=== PATIENT | male | born 1940 | race Caucasian/White ===

== ENCOUNTER 2017-10-16 09:58 | Day surgery (SDC) | payer OTHER ==
[2017-10-16] MEDS ORDERED: LIDOCAINE 1% 2 ML INJ ID PRN (10:13)
[2017-10-16] MEDS ORDERED: ceFAZolin 2 GM/DEXTROSE 100 ML IV ONE (10:13)
[2017-10-16] MEDS ORDERED: LR 1,000 ML IV ONE (10:13)
[2017-10-16] MEDS ORDERED: CEFAZOLIN 2 GM/DEXTROSE/100 ML BAG IV ONE (10:52)
[2017-10-16] MEDS ORDERED: BUPIVACAINE 0.25% 30 ML SDV ONE (11:11)
--- NOTE | 2017-10-16 12:08 | PDHPUP ---
History & Physical Update H&P update statement: This history and physical update is based on an assessment of the patient which was completed after admission or registration (within 24 hours), but prior to the surgery/procedure. H&P update: H&P reviewed & patient examined, no change in patient's condition since H&P completed
--- NOTE | 2017-10-16 12:15 | PDANEPAE ---
ANE History of Present Illness 76 year old male for vascular access port placement. ANE Past Medical History - Cardiovascular History Hx Hypertension: No Hx Arrhythmias: No Hx Chest Pain: No Hx Coronary Artery / Peripheral Vascular Disease: No Hx CHF / Valvular Disease: No Hx Palpitations: No Cardiovascular History Comment: hx of htn but none currently - Pulmonary History Hx COPD: No Hx Asthma/Reactive Airway Disease: No Hx Recent Upper Respiratory Infection: No Hx Oxygen in Use at Home: Yes O2 in Use at Home (L/minute): 4l at noc with cpap Hx Sleep Apnea: Yes Sleep Apnea Screening Result - Last Documented: Positive Pulmonary History Comment: esequiel positive uses cpap - Neurologic History Hx Cerebrovascular Accident: No Hx Seizures: No Hx Dementia: No - Endocrine History Hx Diabetes: No Obesity: mild - Renal History Hx Renal Disorders: Yes Renal History Comment: bph - Liver History Hx Hepatic Disorders: No - Neurological & Psychiatric Hx Hx Neurological and Psychiatric Disorders: No - Cancer History Hx Cancer: Yes Cancer History Comment: esophageal cancer 2010- chemo and radiation. current mets to liver and spot in abd on PET scan - Congenital Disorder History Hx Congenital Disorders: No - GI History Hx Gastrointestinal Disorders: Yes Gastrointestinal History Comment: esophageal cancer. barretts esophagus. reflux. hx of egd's and colonoscopy - Other Health History Other Health History: thrombocytopenia - Chronic Pain History Chronic Pain: Yes (upper quadrant pain near liver) - Surgical History Prior Surgeries: egd's and colonoscopy. port removed fall 2016. port placed . retina retachment- left ANE Review of Systems Review of systems is: negative Review of Systems: - Exercise capacity Exercise capacity: >=4 METS METS (RN): 4 METS ANE Patient History - Allergies Allergies/Adverse Reactions: No Known Allergies Allergy (Verified 10/16/17 10:24) - Home Medications Home medications: home medication list seen and reviewed Home Medications: Flomax 01/10/10 [Last Taken 10/15/17 18:30] Lasix 10/15/17 [Last Taken 10/15/17 08:00] Magnesium 10/15/17 [Last Taken 10/15/17 08:00] Omeprazole 10/15/17 [Last Taken 10/15/17 08:00] Potassium Chloride 10/15/17 [Last Taken 10/15/17 08:00] Preservision Softgel 10/15/17 [Last Taken 07/17/18 18:30] Advil 200 mg PO PRN 10/16/17 [Last Taken 10/15/17 05:30] - NPO status NPO Status: no food or drink >8 hours NPO Since - Liquids (Date): 10/16/17 NPO Since - Liquids (Time): 07:00 NPO Since - Solids (Date): 10/15/17 NPO Since - Solids (Time): 18:30 - Anes Hx Anes Hx: no prior problems - Smoking Hx Smoking Status: Former smoker - Family Anes Hx Family Anes Hx: neg - N/A Family Hx Anesthesia Complications: none ANE Labs/Vital Signs - Vital Signs Vital Signs: reviewed preoperatively; see RN documention for details Blood Pressure: 140/88 Heart Rate: 59 Respiratory Rate: 16 O2 Sat (%): 90 Height: 180.34 cm Weight: 109.316 kg ANE Physical Exam - Airway Neck exam: FROM Mallampati Score: Class 3 Mouth exam: poor dentition (missing teeth, several broken teeth) - Pulmonary Pulmonary: no respiratory distress - Cardiovascular Cardiovascular: regular rate and rhythym - ASA Status ASA Status: III ANE Anesthesia Plan Anesthesia Plan: GA w LMA Total IV Anesthesia: No
[2017-10-16] MEDS ORDERED: PROPOFOL 200 MG/20 ML VIAL ONE ×2 (12:20→12:35)
--- NOTE | 2017-10-16 12:24 | PDHPUP ---
History & Physical Update H&P update statement: This history and physical update is based on an assessment of the patient which was completed after admission or registration (within 24 hours), but prior to the surgery/procedure. NO CHANGE IN EXAM OR HX/ CHEST CLEAR/ COR RR H&P update: H&P reviewed & patient examined, no change in patient's condition since H&P completed
[2017-10-16] MEDS ORDERED: IOPAMIDOL (ISOVUE-M 300) 15 ML VIAL ONE (13:07)
[2017-10-16] MEDS ORDERED: IOPAMIDOL (ISOVUE-M 200) 20 ML VIAL ONE (13:07)
[2017-10-16] MEDS ORDERED: ONDANSETRON 4 MG/2 ML VIAL IVP PRN (13:09)
[2017-10-16] MEDS ORDERED: fentaNYL 100 MCG/2 ML INJ IVP PRN (13:09)
[2017-10-16] MEDS ORDERED: LR 500 ML IV PRN (13:09)
[2017-10-16] MEDS ORDERED: NALOXONE HCL 0.4 MG/ML INJ IVP PRN (13:09)
[2017-10-16] MEDS ORDERED: IOTHALAMATE MEG (CONRAY) 50 ML VIAL IV ONE (13:12)
[2017-10-16] MEDS ORDERED: BACITRACIN ZINC 14.2 GM OINTTUBE TP ONE (13:55)
--- NOTE | 2017-10-16 15:59 | POSTANESTH ---
Post Anesthetic Evaluation Cardiovascular Status: Normal, Stable, Similar to Pre-Op Cond Respiratory Status: Similar to Pre-op Cond. (O2 sat low at baseline. Patient wears 4L O2 as needed at home and then also with his CPAP when sleeping.) Level of Consciousness/Mental Status: Can Participate in Eval, Alert and Oriented Pain Control: Adequate, Prn Tx Ordered Nausea/Vomiting Control: Adequate, Prn Tx Ordered Complications Possibly Related to Anesthesia: None Noted
[2017-10-16 16:29] VITALS: BP 126/77
--- NOTE | 2017-10-20 23:04 | GOP ---
[f rep st] OPERATIVE REPORT DATE OF OPERATION: 10/16/2017 SURGEON: Marcus Lopez MD PREOPERATIVE DIAGNOSIS: Metastatic esophageal cancer. POSTOPERATIVE DIAGNOSIS: Metastatic esophageal cancer. PROCEDURE PERFORMED: Bilateral subclavian port placements with fluoroscopic guidance. FINDINGS: Patient was found to have difficulty with positioning of the left subclavian port. Could not get it to maintain position in the right atrium. ESTIMATED BLOOD LOSS: Blood loss was negligible. DESCRIPTION OF PROCEDURE: The patient was taken to the operating room where he received a satisfacto ry general endotracheal anesthesia. He was placed in supine position, prepped and draped in usual st erile fashion. A single stick was made in the left subclavian vein. A guidewire was passed with clayton e difficulty into the right atrium. Subcu pocket was made and port tubing was passed from that pocke t to the subclavian insertion site. It was trimmed to the appropriate length using fluoroscopic guid ance. It was then introduced through the introducer sheath and dilator system into the superior vena cava. However, the catheter would not pass by some obvious webs in the superior vena cava from his previous old port and kept curling back on itself and could not position down into the atrium. Guide wire was passed through the port tubing. Still we could not manage to get the tubing to go down in t he proper position. After over an hour of struggling with this, it was elected to abandon the left si de and proceed with a port on the right side. A single stick was made in the right subclavian vein. Again, a guidewire was introduced and this time passed readily into the right atrium. The subcu poc ket was made on the right side of the chest. Port tubing was passed from that pocket to the subclavi an insertion site. It was trimmed to the appropriate length using fluoroscopic guidance and introduc ed through the introducer sheath and dilator system into the right atrium. Good backflow was achieve d. The catheter was flushed with heparin saline. It was secured to the port to the fascia with 3-0 Vicryl sutures. Subcu was closed with 3-0 Vicryl, and the skin with a 4-0 Prolene subcuticular sutur e. Entrance site was closed with Prolene mattress suture. The wound was infiltrated with Marcaine. Attention was turned back to the left side where that pocket was closed with 3-0 Vicryl for the subcu and a 4-0 Monocryl subcuticular stitch for the skin. The entrance site was also closed with 4-0 Mon ocryl subcuticular sutures. Wounds were dressed with Steri-Strips and Mastisol, and he was taken to the recovery room in satisfactory condition. There were no complications. /[id number]/MODL
== END 2017-10-16 16:31 | disposition home or self-care (01) ==
LOC: FSGY 09:58
PROVIDERS: ATTEND Surgery
PROC: B5161ZA Fluoroscopy of Right Subclavian Vein using Low Osmolar Contrast, Guidance (ICD-10-PCS; 2017-10-16)
PROC: 0JH60XZ Insertion of Tunneled Vascular Access Device into Chest Subcutaneous Tissue and Fascia, Open Approach (ICD-10-PCS; principal; 2017-10-16 11:45)
PROC: 05H533Z Insertion of Infusion Device into Right Subclavian Vein, Percutaneous Approach (ICD-10-PCS; principal; 2017-10-16 11:45)
DX: C15.5 Malignant neoplasm of lower third of esophagus (principal); C79.9 Secondary malignant neoplasm of unspecified site; N40.0 Benign prostatic hyperplasia without lower urinary tract symptoms; E78.5 Hyperlipidemia, unspecified; I10 Essential (primary) hypertension; G47.33 Obstructive sleep apnea (adult) (pediatric); D75.1 Secondary polycythemia; D69.6 Thrombocytopenia, unspecified; Z92.21 Personal history of antineoplastic chemotherapy; Z87.891 Personal history of nicotine dependence
CPT/HCPCS: C1788; J0690; J1642; J2704; Q9961; Q9966; Q9967

== ENCOUNTER 2017-12-31 08:22 | Inpatient (IN) | payer OTHER ==
[2017-12-31] MEDS ORDERED: NS 1,000 ML IV ONE (08:27)
--- NOTE | 2017-12-31 08:44 | EDPHY ---
H & P Time Seen by Provider: 12/31/17 08:23 HPI/ROS: CHIEF COMPLAINT: Syncope HISTORY OF PRESENT ILLNESS: Patient is a 77-year-old man with a history of esophageal cancer currently receiving chemotherapy. His last round was 1 week ago. He states that it made him very fatigued and weak. He has had two syncope episodes since that time. 1 on Saturday and 1 today. Today it happened while he was walking across the yard. He states that he felt lightheaded and had to stop and hold onto a tree. He then woke up lying on the ground. His saw him collapse. He did not hit his head. He denies chest pain or shortness of breath. He feels dry dehydrated. He has been trying to drink Gatorade. No vomiting. No diarrhea. No fever. called EMS who brought him to the ER. He is currently asymptomatic. Vital signs and EKG were unremarkable for EMS. He does State that he had mild left rib pain that is now resolved. Severity: Moderate Modifying factors: None REVIEW OF SYSTEMS: Constitutional: denies: chills, fever, recent illness, recent injury EENTM: denies: blurred vision, double vision, nose congestion Respiratory: denies: cough, shortness of breath Cardiac: See HPI Gastrointestinal/Abdominal: denies: abdominal pain, diarrhea, nausea, vomiting, blood streaked stools Genitourinary: denies: dysuria, frequency, hematuria, pain Musculoskeletal: denies: joint pain, muscle pain Skin: denies: lesions, rash, jaundice, bruising Neurological: denies: headache, numbness, paresthesia, tingling, dizziness, weakness Hematologic/Lymphatic: denies: blood clots, easy bleeding, easy bruising Immunologic/allergic: denies: HIV/AIDS, transplant 10 systems reviewed and negative except as noted EXAM: GENERAL: Well-appearing, well-nourished and in no acute distress. HEAD: Atraumatic, normocephalic. EYES: Pupils equal round and reactive to light, extraocular movements intact, sclera anicteric, conjunctiva are normal. ENT: TMs normal, nares patent, oropharynx clear without exudates. Moist mucous membranes. NECK: Normal range of motion, supple without lymphadenopathy or JVD. LUNGS: Breath sounds clear to auscultation bilaterally and equal. No wheezes rales or rhonchi. HEART: Regular rate and rhythm without murmurs, rubs or gallops. ABDOMEN: Soft, nontender, normoactive bowel sounds. No guarding, no rebound. No masses appreciated. BACK: No CVA tenderness, no spinal tenderness, step-offs or deformities EXTREMITIES: Normal range of motion, no pitting or edema. No clubbing or cyanosis. NEUROLOGICAL: Cranial nerves II through XII grossly intact. Normal speech, normal gait. 5/5 strength, normal movement in all extremities, normal sensation , normal reflexes PSYCH: Normal mood, normal affect. SKIN: Warm, dry, normal turgor, no visible rashes or lesions. Source: Patient, EMS Exam Limitations: No limitations - Medical/Surgical History Hx Asthma: No Hx Chronic Respiratory Disease: No Hx Diabetes: No Hx Cardiac Disease: No Hx Renal Disease: No Hx Cirrhosis: No Hx Alcoholism: No Hx HIV/AIDS: No - Family History Significant Family History: No pertinent family hx - Social History Smoking Status: Former smoker Alcohol Use: Sober Drug Use: None Constitutional: Initial Vital Signs Temperature (C) 37.0 C 12/31/17 09:05 Heart Rate 81 12/31/17 09:05 Respiratory Rate 18 12/31/17 09:05 Blood Pressure 150/89 H 12/31/17 09:05 O2 Sat (%) 94 12/31/17 09:05 O2 Delivery Mode Nasal Cannula O2 (L/minute) 6 Allergies/Adverse Reactions: No Known Allergies Allergy (Verified 12/31/17 09:07) Home Medications: Medication Instructions Recorded Esomeprazole Magnesium [Nexium 20 mg PO DAILY 12/31/17 24Hr] Ibuprofen [Advil] 200 - 400 mg PO Q6H PRN 12/31/17 Tamsulosin HCl [Flomax 0.4 MG (*)] 0.8 mg PO DAILY 12/31/17 Vit C/Dl-E AC/Lut/Copper/Znox 1 each PO BID 12/31/17 [Preservision Softgel] Medical Decision Making - Diagnostics EKG Interpretation: An EKG obtained and was read and documented in trace view. Please see trace view for full reading and report. Sinus rhythm, no acute ischemic changes Imaging Results: Imaging Impressions Chest/Thorax CTA 12/31/17 10:49 Impression: 1. Moderate volume of acute thrombopulmonary embolic disease. 2. New minimal left basilar atelectasis and trace left pleural effusion. 3. Benign right upper lobe linear scarring and middle lobe pulmonary nodules are unchanged since 2010. 4. Moderate hiatal hernia, unchanged. Findings discussed with Emergency Department physician, Tushar Robles on 2017, 11:56. Imaging: Discussed imaging studies w/ call center analyst Radiologist ED Course/Re-evaluation: Patient desaturated off of oxygen. He states that he has been wearing his oxygen more often recently since he began chemotherapy and that they told him to wear whenever he felt like he needed. He does have some mild left-sided rib pain earlier today but not now. I will CT to rule out P E. He may need to be on oxygen at home. He denies feeling short of breath. The patient has several PEs. I discussed with the patient and family. states that he has had a mild left-sided rib pain off and on for the last couple of days. Will admit to start on heparin drip. Have discussed with medical service. They will admit. Differential Diagnosis: Partial list of the Differential diagnosis considered include but were not limited to; anemia, dehydration, PE and although unlikely based on the history and physical exam, I also considered acute coronary disease, pneumonia. Critical Care Time: Critical care time spent by me, Dr. Robles exclusive with this patient was 35 minutes, exclusive of the PA time exclusive of procedures. The organ system that was at risk was pulmonary and I gave medications, consultation and admission to prevent worsening of the patient's condition - Data Points Laboratory Results: Laboratory Results 12/31/17 08:25 12/31/17 08:25 12/31/17 12/31/17 12/31/17 09:30 08:30 08:25 WBC RBC Hgb Hct MCV MCH MCHC RDW Plt Count MPV Neut % (Auto) Lymph % (Auto) [place] % (Auto) Eos % (Auto) Baso % (Auto) Nucleat RBC Rel Count Absolute Neuts (auto) Absolute Lymphs (auto) Absolute Monos (auto) Absolute Eos (auto) Absolute Basos (auto) Absolute Nucleated RBC Immature Gran % Immature Gran # Platelet Estimate Sodium Potassium Chloride Carbon Dioxide Anion Gap BUN Creatinine Estimated GFR Glucose Calcium Total Bilirubin Conjugated Bilirubin Unconjugated Bilirubin AST ALT Alkaline Phosphatase POC Troponin I 0.01 ng/mL ng/mL (0.00-0.08) NT-Pro-B Natriuret Pep 263 pg/mL pg/mL (0-450) Total Protein Albumin Stool Occult Bld Scrn NEGATIVE (NEGATIVE) 12/31/17 12/31/17 08:25 08:25 WBC 3.32 10^3/uL L 10^3/uL (3.80-9.50) RBC 3.72 10^6/uL L 10^6/uL (4.40-6.38) Hgb 12.8 g/dL L g/dL (13.7-17.5) Hct 36.9 % L % (40.0-51.0) MCV 99.2 fL fL (81.5-99.8) MCH 34.4 pg H pg (27.9-34.1) MCHC 34.7 g/dL g/dL (32.4-36.7) RDW 18.2 % H % (11.5-15.2) Plt Count 77 10^3/uL L 10^3/uL (150-400) MPV 11.1 fL fL (8.7-11.7) Neut % (Auto) 53.6 % % (39.3-74.2) Lymph % (Auto) 22.0 % % (15.0-45.0) [place] % (Auto) 15.1 % H % (4.5-13.0) Eos % (Auto) 8.1 % H % (0.6-7.6) Baso % (Auto) 0.3 % % (0.3-1.7) Nucleat RBC Rel Count 0.0 % % (0.0-0.2) Absolute Neuts (auto) 1.78 10^3/uL 10^3/uL (1.70-6.50) Absolute Lymphs (auto) 0.73 10^3/uL L 10^3/uL (1.00-3.00) Absolute Monos (auto) 0.50 10^3/uL 10^3/uL (0.30-0.80) Absolute Eos (auto) 0.27 10^3/uL 10^3/uL (0.03-0.40) Absolute Basos (auto) 0.01 10^3/uL L 10^3/uL (0.02-0.10) Absolute Nucleated RBC 0.00 10^3/uL 10^3/uL (0-0.01) Immature Gran % 0.9 % % (0.0-1.1) Immature Gran # 0.03 10^3/uL 10^3/uL (0.00-0.10) Platelet Estimate Not Reported Sodium 139 mEq/L mEq/L (135-145) Potassium 4.2 mEq/L mEq/L (3.3-5.0) Chloride 100 mEq/L mEq/L (97-110) Carbon Dioxide 29 mEq/l mEq/l (22-31) Anion Gap 10 mEq/L mEq/L (8-16) BUN 18 mg/dL mg/dL (7-23) Creatinine 1.0 mg/dL mg/dL (0.7-1.3) Estimated GFR > 60 Glucose 109 mg/dL H mg/dL (70-100) Calcium 8.3 mg/dL L mg/dL (8.5-10.4) Total Bilirubin 0.8 mg/dL mg/dL (0.1-1.4) Conjugated Bilirubin 0.1 mg/dL mg/dL (0.0-0.5) Unconjugated Bilirubin 0.7 mg/dL mg/dL (0.0-1.1) AST 32 IU/L IU/L (17-59) ALT 32 IU/L IU/L (21-72) Alkaline Phosphatase 76 IU/L IU/L (38-126) POC Troponin I NT-Pro-B Natriuret Pep Total Protein 6.2 g/dL L g/dL (6.3-8.2) Albumin 3.5 g/dL g/dL (3.5-5.0) Stool Occult Bld Scrn Medications Given: Discontinued Medications Heparin Sodium (Porcine) (Heparin Injection) 0 unit IVP EDNOW ONE Stop: 12/31/17 12:47 Last Admin: 12/31/17 13:07 Dose: 8,600 units Sodium Chloride (Ns) 1,000 mls @ 0 mls/hr IV EDNOW ONE; Wide Open PRN Reason: Protocol Stop: 12/31/17 08:28 Last Admin: 12/31/17 09:09 Dose: 1,000 mls Heparin Sodium (Porcine) (Heparin 50 Units/Ml (Premix)) 500 mls @ 0 mls/hr IV EDNOW ONE; Per Protocol PRN Reason: Protocol Stop: 12/31/17 12:47 Last Admin: 12/31/17 13:07 Dose: 500 mls Point of Care Test Results: Chemistry 12/31/17 08:30 POC Troponin I 0.01 ng/mL ng/mL (0.00-0.08) Departure - Departure Disposition: [facility] Inpatient Acute Clinical Impression: Pulmonary embolism Qualifiers: Pulmonary embolism type: other Chronicity: acute Acute cor pulmonale presence: without acute cor pulmonale Qualified Code(s): I26.99 - Other pulmonary embolism without acute cor pulmonale Condition: Fair
--- NOTE | 2017-12-31 08:46 | CPEKG ---
Test Reason : OPEN Blood Pressure : / mmHG Vent. Rate : 073 BPM Atrial Rate : 073 BPM P-R Int : 193 ms QRS Dur : 100 ms QT Int : 391 ms P-R-T Axes : -01 -36 009 degrees QTc Int : 431 ms Sinus rhythm Left axis deviation Confirmed by Tushar Robles ([id number]) on 12/31/2017 8:45:50 AM Referred By: Confirmed By:Tushar Robles
[2017-12-31 09:15] LABS: PLATELET COUNT 77 10^3/uL (150-400)
[2017-12-31] MEDS ORDERED: IOPAMIDOL (ISOVUE 370) 100 ML BTL IV ONE (11:06)
[2017-12-31] MEDS ORDERED: HEPARIN 10,000 UNIT/10 ML MDV (1,000 UNIT/ML) IVP PRN (12:38)
[2017-12-31] MEDS ORDERED: ONDANSETRON 4 MG/2 ML VIAL IVP PRN (12:38)
[2017-12-31] MEDS ORDERED: ONDANSETRON DISINTEGRATING 4 MG TAB PO PRN (12:38)
[2017-12-31] MEDS ORDERED: HEPARIN 10,000 UNIT/10 ML MDV (1,000 UNIT/ML) IVP ONE ×2 (12:38→12:46)
[2017-12-31] MEDS ORDERED: ACETAMINOPHEN 325 MG TAB PO PRN (12:38)
[2017-12-31] MEDS ORDERED: HEPARIN/DEXTROSE 500 ML IV SCH (12:45)
[2017-12-31] MEDS ORDERED: HEPARIN/DEXTROSE 500 ML IV ONE (12:46)
--- NOTE | 2017-12-31 13:35 | PDGENHP ---
<Ade Schwarz - Last Filed: 12/31/17 16:32> History and Physical - Chief Complaint Syncope - History of Present Illness 77 y/o male patient presents to ED after sustaining a syncope event earlier today. He was feeding one of his horses when suddenly he felt fatigue and braced himself on a tree thinking the fatigue feeling would pass. He LOC and reports sliding his back down the tree and landed in a sitting position leaning toward his left side. His witnessed the fall. Denies hitting his head. Denies SOB, dizziness at that time, chest pains, or PRIETO. He reports having a similar episode on Saturday but did not LOC. He felt fatigue walking down his driveway and stopped to brace himself and the feeling went away. He was diagnosed with esophageal cancer in January 2011 and chemotherapy ended August 2011. He reports he "...has something on his liver and abdomen," and had to resume chemotherapy once again. His last chemotherapy was on of last week and is undergoing chemotherapy 2 days a week every 2 weeks. He reports feeling SOB while at rest and lying supine. He does not appear to be in respiratory distress. He also reports feeling dizzy. Denies PRIETO, chest pains. Occasionally patient will experience left sided rib discomfort. He first noticed this on Saturday. There is no pattern as to when the discomfort comes. He can take a deep breath and doesn't experience this discomfort. Palpating the area does not aggravate it. He is being admitted for further diagnostic work-up and PE and pain management. History Information - Allergies/Home Medication List Allergies/Adverse Reactions: No Known Allergies Allergy (Verified 12/31/17 09:07) Home Medications: Esomeprazole Magnesium [Nexium 24Hr] 20 mg PO DAILY 12/31/17 [Last Taken ] Ibuprofen [Advil] 200 - 400 mg PO Q6H PRN 12/31/17 [Last Taken 12/31/17] Tamsulosin HCl [Flomax 0.4 MG (*)] 0.8 mg PO DAILY 12/31/17 [Last Taken 12/30/17 ] Vit C/Dl-E AC/Lut/Copper/Znox [Preservision Softgel] 1 each PO BID 12/31/17 [ Last Taken 12/30/17] I have personally reviewed and updated: family history, medical history, social history, surgical history - Past Medical History cancer (Esophageal, liver, abdomen) Additional medical history: Neuropathy, GRACIELA, 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 ROS: 10pt was reviewed & negative except for what was stated in HPI & below Constitutional: Reports: weakness EENMT: Reports: no symptoms Cardiac: Reports: lightheadedness, syncope Respiratory: Reports: shortness of breath Gastrointestinal: Reports: diarrhea Genitourinary: Reports: no symptoms Muscolosketal: Reports: no symptoms Skin: Reports: no symptoms Neurological: Reports: no symptoms Hematologic/Lymphatic: Reports: no symptoms Immunologic/Allergy: Reports: no symptoms Physical Exam Physical Exam: Temp Pulse Resp BP Pulse Ox 37.0 C 69 15 143/90 H 97 12/31/17 09:05 12/31/17 13:15 12/31/17 13:15 12/31/17 13:15 12/31/17 13:15 O2 (L/minute) 4.5 Constitutional: no apparent distress Eyes: PERRL, anicteric sclera, EOMI Ears, Nose, Mouth, Throat: moist mucous membranes, hearing normal, ears appear normal, no oral mucosal ulcers Cardiovascular: regular rate and rhythym, no murmur, rub, or gallop, pulses symmetric bilaterally, No edema Peripheral Pulses: 2+: dorsalis-pedis (R), dorsalis-pedis (L) Respiratory: no respiratory distress, no rales or rhonchi, clear to auscultation , reduced air movement Gastrointestinal: normoactive bowel sounds, soft, non-tender abdomen, no palpable masses Genitourinary: no bladder fullness, no bladder tenderness Skin: warm, normal color, no rashes or abrasions, no fluctuance, no induration, No mottled Musculoskeletal: full muscle strength, no muscle tenderness, normal joint ROM, no joint effusions Neurologic: AAOx3, weakness, numbness (Neuropathy) Psychiatric: interacting appropriately, not anxious, not encephalopathic, thought process linear Lymph, Heme, Immunologic: no cervical LAD, no supraclavicular LAD Lab Data & Imaging Review 12/31/17 15:00 12/31/17 08:25 WBC 3.32 10^3/uL (3.80-9.50) L 12/31/17 08:25 RBC 3.72 10^6/uL (4.40-6.38) L 12/31/17 08:25 Hgb 12.8 g/dL (13.7-17.5) L 12/31/17 08:25 Hct 36.9 % (40.0-51.0) L 12/31/17 08:25 MCV 99.2 fL (81.5-99.8) 12/31/17 08:25 MCH 34.4 pg (27.9-34.1) H 12/31/17 08:25 MCHC 34.7 g/dL (32.4-36.7) 12/31/17 08:25 RDW 18.2 % (11.5-15.2) H 12/31/17 08:25 Plt Count 77 10^3/uL (150-400) L 12/31/17 08:25 MPV 11.1 fL (8.7-11.7) 12/31/17 08:25 Neut % (Auto) 53.6 % (39.3-74.2) 12/31/17 08:25 Lymph % (Auto) 22.0 % (15.0-45.0) 12/31/17 08:25 Canadian % (Auto) 15.1 % (4.5-13.0) H 12/31/17 08:25 Eos % (Auto) 8.1 % (0.6-7.6) H 12/31/17 08:25 Baso % (Auto) 0.3 % (0.3-1.7) 12/31/17 08:25 Nucleat RBC Rel Count 0.0 % (0.0-0.2) 12/31/17 08:25 Absolute Neuts (auto) 1.78 10^3/uL (1.70-6.50) 12/31/17 08:25 Absolute Lymphs (auto) 0.73 10^3/uL (1.00-3.00) L 12/31/17 08:25 Absolute Monos (auto) 0.50 10^3/uL (0.30-0.80) 12/31/17 08:25 Absolute Eos (auto) 0.27 10^3/uL (0.03-0.40) 12/31/17 08:25 Absolute Basos (auto) 0.01 10^3/uL (0.02-0.10) L 12/31/17 08:25 Absolute Nucleated RBC 0.00 10^3/uL (0-0.01) 12/31/17 08:25 Immature Gran % 0.9 % (0.0-1.1) 12/31/17 08:25 Immature Gran # 0.03 10^3/uL (0.00-0.10) 12/31/17 08:25 Platelet Estimate Not Reported 12/31/17 08:25 Sodium 139 mEq/L (135-145) 12/31/17 08:25 Potassium 4.2 mEq/L (3.3-5.0) 12/31/17 08:25 Chloride 100 mEq/L (97-110) 12/31/17 08:25 Carbon Dioxide 29 mEq/l (22-31) 12/31/17 08:25 Anion Gap 10 mEq/L (8-16) 12/31/17 08:25 BUN 18 mg/dL (7-23) 12/31/17 08:25 Creatinine 1.0 mg/dL (0.7-1.3) 12/31/17 08:25 Estimated GFR > 60 12/31/17 08:25 Glucose 109 mg/dL (70-100) H 12/31/17 08:25 Calcium 8.3 mg/dL (8.5-10.4) L 12/31/17 08:25 Total Bilirubin 0.8 mg/dL (0.1-1.4) 12/31/17 08:25 Conjugated Bilirubin 0.1 mg/dL (0.0-0.5) 12/31/17 08:25 Unconjugated Bilirubin 0.7 mg/dL (0.0-1.1) 12/31/17 08:25 AST 32 IU/L (17-59) 12/31/17 08:25 ALT 32 IU/L (21-72) 12/31/17 08:25 Alkaline Phosphatase 76 IU/L (38-126) 12/31/17 08:25 POC Troponin I 0.01 ng/mL (0.00-0.08) 12/31/17 08:30 Total Protein 6.2 g/dL (6.3-8.2) L 12/31/17 08:25 Albumin 3.5 g/dL (3.5-5.0) 12/31/17 08:25 Stool Occult Bld Scrn NEGATIVE (NEGATIVE) 12/31/17 09:30 Assessment & Plan Assessment: 77 y/o male with metastatic esophageal cancer presents with acute pulmonary embolisms. Plan: #Acute Pulmonary Embolism: I suspect this is related to his metastatic cancer. -Initiate Heparin Drip; will re-evaluate tomorrow morning to switch to either warfarin vs DOAC -Initiate ultrasound of BLE to r/o additional clots -Oncologist notified and aware; will evaluate tomorrow #Syncope: see above. I suspect this is related to his metastatic cancer. #Acute on Chronic Respiratory Insufficiency -Continue to utilize CPAP machine #Pulmonary Nodules -Unchanged; continue to monitor #Hiatal Hernia -Unchanged; continue to monitor Diet: Regular VTE ppx: Therapeutic anticoagulants Code: DNR Dispo: Admit to inpatient <Lucian Ball - Last Filed: 12/31/17 17:42> History and Physical - History of Present Illness Review of Systems Review of Systems: Physical Exam Physical Exam: Temp Pulse Resp BP Pulse Ox 36.6 C 76 18 155/93 H 92 12/31/17 15:14 12/31/17 15:14 12/31/17 15:14 12/31/17 15:14 12/31/17 15:14 O2 (L/minute) 4 Lab Data & Imaging Review 12/31/17 15:00 12/31/17 08:25 WBC 3.60 10^3/uL (3.80-9.50) L 12/31/17 15:00 RBC 3.60 10^6/uL (4.40-6.38) L 12/31/17 15:00 Hgb 12.3 g/dL (13.7-17.5) L 12/31/17 15:00 Hct 35.6 % (40.0-51.0) L 12/31/17 15:00 MCV 98.9 fL (81.5-99.8) 12/31/17 15:00 MCH 34.2 pg (27.9-34.1) H 12/31/17 15:00 MCHC 34.6 g/dL (32.4-36.7) 12/31/17 15:00 RDW 18.2 % (11.5-15.2) H 12/31/17 15:00 Plt Count 73 10^3/uL (150-400) L 12/31/17 15:00 MPV 11.3 fL (8.7-11.7) 12/31/17 15:00 Neut % (Auto) 53.5 % (39.3-74.2) 12/31/17 15:00 Lymph % (Auto) 22.2 % (15.0-45.0) 12/31/17 15:00 Canadian % (Auto) 15.6 % (4.5-13.0) H 12/31/17 15:00 Eos % (Auto) 6.7 % (0.6-7.6) 12/31/17 15:00 Baso % (Auto) 0.6 % (0.3-1.7) 12/31/17 15:00 Nucleat RBC Rel Count 0.0 % (0.0-0.2) 12/31/17 15:00 Absolute Neuts (auto) 1.93 10^3/uL (1.70-6.50) 12/31/17 15:00 Absolute Lymphs (auto) 0.80 10^3/uL (1.00-3.00) L 12/31/17 15:00 Absolute Monos (auto) 0.56 10^3/uL (0.30-0.80) 12/31/17 15:00 Absolute Eos (auto) 0.24 10^3/uL (0.03-0.40) 12/31/17 15:00 Absolute Basos (auto) 0.02 10^3/uL (0.02-0.10) 12/31/17 15:00 Absolute Nucleated RBC 0.00 10^3/uL (0-0.01) 12/31/17 15:00 Immature Gran % 1.4 % (0.0-1.1) H 12/31/17 15:00 Immature Gran # 0.05 10^3/uL (0.00-0.10) 12/31/17 15:00 Platelet Estimate DECREASED (ADEQ) L 10/02/18 15:00 Oval Macrocytes 1+ H 12/31/17 15:00 Echinocytes 1+ H 12/31/17 15:00 PT 16.1 SEC (12.0-15.0) H 12/31/17 15:00 INR 1.27 (0.83-1.16) H 12/31/17 15:00 APTT > 250.0 SEC (23.0-38.0) H* 12/31/17 15:00 Sodium 139 mEq/L (135-145) 12/31/17 08:25 Potassium 4.2 mEq/L (3.3-5.0) 12/31/17 08:25 Chloride 100 mEq/L (97-110) 12/31/17 08:25 Carbon Dioxide 29 mEq/l (22-31) 12/31/17 08:25 Anion Gap 10 mEq/L (8-16) 12/31/17 08:25 BUN 18 mg/dL (7-23) 12/31/17 08:25 Creatinine 1.0 mg/dL (0.7-1.3) 12/31/17 08:25 Estimated GFR > 60 12/31/17 08:25 Glucose 109 mg/dL (70-100) H 12/31/17 08:25 Calcium 8.3 mg/dL (8.5-10.4) L 12/31/17 08:25 Total Bilirubin 0.8 mg/dL (0.1-1.4) 12/31/17 08:25 Conjugated Bilirubin 0.1 mg/dL (0.0-0.5) 12/31/17 08:25 Unconjugated Bilirubin 0.7 mg/dL (0.0-1.1) 12/31/17 08:25 AST 32 IU/L (17-59) 12/31/17 08:25 ALT 32 IU/L (21-72) 12/31/17 08:25 Alkaline Phosphatase 76 IU/L (38-126) 12/31/17 08:25 POC Troponin I 0.01 ng/mL (0.00-0.08) 12/31/17 08:30 NT-Pro-B Natriuret Pep 263 pg/mL (0-450) 12/31/17 08:25 Total Protein 6.2 g/dL (6.3-8.2) L 12/31/17 08:25 Albumin 3.5 g/dL (3.5-5.0) 12/31/17 08:25 Stool Occult Bld Scrn NEGATIVE (NEGATIVE) 12/31/17 09:30 Assessment & Plan Assessment: Pulmonary embolism (Acute) Plan: I agree with plan listed above by CARLITO Schwarz. Mr Smith presented with syncope found to have acute PE without e/o right heart strain or hemodynamic instability in setting of active malignancy. Will anticoagulate with IV heparin and monitor for bleeding overnight with plan to transition to oral agent tomorrow. Check LE US. Wean supplemental O2 as able. He is followed by Dr Lantigua for his metastatic esophageal cancer; oncology has been notified of his admission.
[2017-12-31] MEDS ORDERED: PERFLUTREN LIPID MICROSPHERES 1.1 MG/ML VIAL IV ONE (14:30)
[2017-12-31 15:40] LABS: INR 1.27 (0.83-1.16); PROTIME(PATIENT) 16.1 SEC (12.0-15.0)
--- NOTE | 2017-12-31 16:00 | ECHO ---
[email or web address] [address] [address] Main: [phone] Fax: Transthoracic Echocardiogram Name: JOSE PIMENTEL MR#: [id number] Study Date: 12/31/2017 Study Time: 01:39 PM Date of : 1940 Age: 77 year(s) Height: 177.8 cm (70 in.) Weight: 107.5 kg (237 lb.) BSA: 2.24 m2 Gender: Male Examination: Echo with Definity Indication: eval RV strain, ventricular function Image Quality: Technically Difficult Contrast: 0.165 mg I.V. dose of Definity was administered to improve endocardial border definition. Requested by: Lucian Ball BP: 143 mmHg/90 mmHg Heart Rate: Rhythm: Indication: eval RV strain, ventricular function Procedure Staff [employer] Project Manager: Kim Parra [facility] Reading Physician: Yovany Rubalcava MD Requesting Provider: Conclusions: Normal size left ventricle. Normal global systolic LV function. The ejection fraction is visually estimated to be 55 %. No regional wall motion abnormality. This is a technically limited study with difficult acoustic windows.. The left atrium is mildly dilated. Mild to moderate mitral regurgitation. Mild aortic valve regurgitation is present. Trivial tricuspid valve regurgitation. Mildly dilated aortic root measuring 4.1 cm. Measurements: Chambers Valvular Assessment AV/MV Valvular Assessment TV/PV Normal Normal Normal Name Value Range Name Value Range Name Value Range Ao Loida (2D): 4.1 cm (1.4 cm-2.6 AV Vmax: 1.23 m/s (1 m/s-1.7 PV Vmax: 0.71 m/s (0.6 m/s-0.9 cm) m/s) m/s) IVSd (2D): 1.0 cm (0.6 cm-1.1 AV maxP mmHg ( - ) PV PGmax: 2 mmHg ( - ) cm) AV meanP mmHg ( - ) LVDd (2D): 6.2 cm (4.2 cm-5.9 LVOT Vmax: 0.92 m/s (0.7 m/s-1.1 cm) m/s) LVDs (2D): 4.0 cm (2.1 cm-4 DADA (Vmax): 2.8 cm2 ( - ) cm) DADA (VTI): 3.3 cm ( - ) LVPWd (2D): 1.1 cm (0.6 cm-1 MV E Vmax: 0.58 m/s ( - ) cm) MV A Vmax: 1.03 m/s ( - ) LVOTd 2.2 cm 2.2 cm mm MV E/A: 0.56 ( - ) LVEF (MOD4): 59 % (>=55 %) MV PHT: 0.105 s ( - ) Visual EF: 55 % MVA (PHT): 2.1 s ( - ) Patient: JOSE PIMENTEL Study Date: 12/31/2017 Page 1 of 2 01:39 PM RVDd(2D): 3.4 cm (1.9 cm-3.8 cmmm) Continued Measurements: Chambers Valvular Assessment AV/MV Name Value Name Value LADs: 3.8 cm MV DecTime: 338 m/s LADs Lon.3 cm MV E/E' Septal: 8.50 LA Area: 31.2 cm2 MV E/E' Lateral: 6.20 LA Volume: 83 ml LA Volume Index: 37.1 ml/m2 RA Area: 21.5 cm2 Additional Vessels Name Value Ao Ascendin.6 cm Findings: Left Ventricle: Normal size left ventricle. No LV hypertrophy. Normal global systolic LV function. The ejection fraction is visually estimated to be 55 %. No regional wall motion abnormality. Unable to assess diastolic dysfunction. This is a technically limited study with difficult acoustic windows.. Right Ventricle: Normal size right ventricle. Normal RV function. Left Atrium: The left atrium is mildly dilated. Right Atrium: The right atrium is borderline dilated. Mitral Valve: The mitral valve is normal in appearance and function. Mild to moderate mitral regurgitation. Aortic Valve: The aortic valve is tri-leaflet. Aortic sclerosis is present. Mild aortic valve regurgitation is present. No aortic valve stenosis is present. Tricuspid Valve: The tricuspid valve is normal in appearance and function. Trivial tricuspid valve regurgitation. Pulmonic Valve: The pulmonic valve is normal in appearance and function. Aorta: The aorta is normal. Mildly dilated aortic root measuring 4.1 cm. Normal size ascending aorta measuring 3.6 cm. IVC: Subcostal not well visualized. Pericardium: No pericardial effusion. No pleural effusion. (No Signature Object) Patient: JOSE PIMENTEL Study Date: 12/31/2017 Page 2 of 2 01:39 PM [id number]
--- NOTE | 2017-12-31 16:09 | ASMTCMCOM ---
CM Note CM Note Notes: Chart reviewed for discharge planning purposes. 77 year old male admitted via ED after having syncopal episode while in his yard. Undergoing chemotherapy for esophageal cancer. Treatment last weak has left him fatigued. Per CT scan he has thrombopulmonary embolic disease. Plan of care still being determined. He lives with his . He is a DNR. CM to follow for needs. Plan: TBD Date Signed: 12/31/2017 04:08 PM Electronically Signed By:Preethi Matos RN
[2017-12-31 16:32] LABS: PLATELET COUNT 73 10^3/uL (150-400)
--- NOTE | 2017-12-31 17:03 | PDMN ---
Medical Necessity Medical necessity: MCG M290 PE: 77 yo w/ syncope dx w/ acute PE r/t metastatic ca and acute on chronic resp insufficiency, heparin drip initiated, U/S BLE pending, onc consult. Pt tachypneac, O2 sat on room air in 60s, now on 4-6L to maintain sats>90%, plt 73K, anticipate>2MN for ongoing monitoring and treatment. Hx ca (esophageal w/ iver, abd mets), neuropathy, GRACIELA
[2018-01-01 07:28] VITALS: BP 139/84
[2018-01-01] MEDS ORDERED: APIXABAN 5 MG TAB PO SCH (13:30)
--- NOTE | 2018-01-01 14:00 | ASMTLACE ---
BENITAE Length of stay for Answers: 1 day current admission Comorbidities - select Answers: Any tumor (including all that apply lymphoma or leukemia) # of Emergency department Answers: 1-2 visits in the last 6 months Score: 4 Date Signed: 01/01/2018 01:59 PM Electronically Signed By:Preethi Matos RN
--- NOTE | 2018-01-01 14:59 | ASDISCHSUM ---
Discharge Information Plan Status:Home with DME or Oxygen Medically Cleared to Leave:01/01/2018 Discharge Date:01/01/2018 CM D/C Disposition:Home, Routine, Self-Care ADT D/C Disposition:Home, Routine, Self-Care Projected Discharge Date:01/01/2018 Transportation at D/C:Family Discharge Delay Reason: Follow-Up Date:01/01/2018 Discharge Slot: Final Diagnosis: Placement Information Patient Contact Information Contact Name:SHANNA Relationship: Address:[address] Work Phone: City:[place] Alternate Phone: State/Zip Code:[place] [address] Email: Financial Information Financial Class:Medicare Primary Plan Desc:MEDICARE INPATIENT Primary Plan Number:[id number] Secondary Plan Desc:CHAU PIPER DANIEL Secondary Plan Number:[id number] Assessment Information LACE LACE Length of stay for Answers: 1 day current admission Comorbidities - select Answers: Any tumor (including all that apply lymphoma or leukemia) # of Emergency department Answers: 1-2 visits in the last 6 months Score: 4 Date Signed: 01/01/2018 01:59 PM Electronically Signed By:Preethi Matos RN [facility] CM Progress Note CM Note CM Note Notes: Chart reviewed for discharge planning purposes. 77 year old male admitted via ED after having syncopal episode while in his yard. Undergoing chemotherapy for esophageal cancer. Treatment last weak has left him fatigued. Per CT scan he has thrombopulmonary embolic disease. Plan of care still being determined. He lives with his . He is a DNR. CM to follow for needs. Plan: TBD Date Signed: 12/31/2017 04:08 PM Electronically Signed By:Pretehi Matos RN [facility] CM Progress Note CM Note CM Note Notes: Patient plan of care reviewed in rounds. He will be cleared for dc to home today. He has family support. He already has home oxygen. No indentified needs. Plan: Home independently. Date Signed: 01/01/2018 02:51 PM Electronically Signed By:Preethi Matos RN Intervention Information Intervention Type:*Incorrect Registration Date of Service:12/31/2017 04:51 PM Patient Type:Observation Staff Member:Shira Zhang Hours: Discipline: Severity: Comment:
--- NOTE | 2018-01-01 17:29 | PDDCSUM ---
Discharge Summary Discharge Summary: Date of Admission: 12/31/2017 Date of Discharge: 01/01/2018 Procedures/Studies: CTA chest, bilateral LE ultrasound, TTE Discharge Diagnoses: 1. Acute pulmonary embolus 2. Left popliteal DVT 3. Syncope 4. Metastatic esophageal adenocarcinoma currently on chemotherapy 5. Acute on chronic hypoxemic respiratory insufficiency 6. Pancytopenia 7. Pulmonary nodules 8. Hiatal hernia Brief Hospital Course: 77yo M currently on FOLFOX for metastatic esophageal cancer (Dr Lantigua) presented after having syncopal episode at home that was associated with worsening dyspnea. A CTA chest revealed an acute PE involving right upper/middle /lower lobes as well as left lower lobe. He was also found to have a LLE DVT. I suspect these were provoked in the setting of his active cancer. This is his first thrombotic event. He had no e/o right heart strain and remained hemodynamically stable. He was started on a heparin gtt and transitioned to apixaban at discharge (he was not interested in LMWH subq injections despite this having better evidence). He was requiring 4L via NC continuously. He has no prior bleeding history. Medications: Please refer to EMR for complete list. Changes this admission include addition of apixaban. Follow Up Plan: 1. Clinic appt with Dr Lantigua next week Physical Exam: Vitals reviewed, normotensive and normal HR. Alert and oriented. RRR without murmur, lungs clear, abdomen soft, no JVD or LE edema.
--- NOTE | 2018-01-01 21:51 | PDCONSULT ---
Commercial Loan Assistant Note: Patient is a 77-year-old male with metastatic esophageal cancer status post 6 cycles of FOLFOX was last on 12/24/2017 admitted for syncope secondary to PE. Patient reports that around Saturday morning he went up to feed his horses and almost passed out. He felt short of breath like he could not get his air. He went back into his home and his put him on oxygen which he usually wears at night with his CPAP. Then Saturday he again woke up to feed his horses felt like passing out again but did eventually did lose consciousness and postural tone. His ended up calling EMS. On presentation to the ER on 12/31/2017 his EKG demonstrated normal sinus rhythm. CT angiogram showed right upper, right middle, right lower and left lower segmental branch PEs. His troponin and BNP were normal. Echocardiogram showed no evidence of right heart strain. Patient did have a new oxygen requirement however at 4 L. He was started on a heparin drip and admitted Patient currently reports feeling better. He does recall some left sided chest discomfort for the past month or so but that's since subsisded. He denies any other symptoms. Review of systems: A complete 12 point review of systems is obtained and found to be negative unless indicated in the history of the present illness: Past medical history: Obstructive sleep apnea CPAP metastatic esophageal cancer Past surgical history: Retinal detachment surgery Social history: No history of drugs or alcohol. He did smoke roughly a pack a day for 3-4 years in the . Family history: Sister with lupus Mother secondary to complications of peripheral vascular disease Allergies and medications were reviewed in the chart Physical examination: General: No acute distress appearing male HEENT: Left eye with temporal strabismus and without vision, no scleral icterus or conjunctival pallor is appreciated, oral mucosa is moist without any evidence of oral pharyngeal lesions Cardiovascular: Regular rate and rhythm without rubs thrills gallops or murmurs Chest: Clear to auscultation and percussion bilateral posterior lungs Abdomen: Soft nontender nondistended no hepatosplenomegaly was appreciated Extremities: Warm and well-perfused trace bilateral pitting edema Neurologic: alert and oriented x3 Labs reviewed, imaging reviewed Assessment and plan: Patient is a 77-year-old male with a history of metastatic esophageal carcinoma on FOLFOX chemotherapy who presents with a months worth of left-sided chest discomfort and recent syncope, found to have a pulmonary embolus. Problem #1: Acute pulmonary embolism Patient has a normal troponin and BNP. Echocardiogram showed no right heart strain. Patient is hemodynamically stable. He is requiring 4 L of oxygen which was new. He is currently on a heparin drip. Plan will be to observe the patient on telemetry with ongoing anticoagulation given his high PESI score. -Options for patient's with metastatic carcinoma and blood clots include heparin , Lovenox or endoxaban. Problem #2: Metastatic esophageal carcinoma Patient has had 6 cycles of FOLFOX chemotherapy with last on 12/24/2017. He will continue to follow-up with Dr. Lantigua for ongoing care. Shemar Multani
== END 2018-01-01 15:57 | disposition home or self-care (01) | DRG 176 ==
LOC: EDUNIT# → OBSVTOIN 13:27 → F1N 15:06
PROVIDERS: ADMIT Internal Medicine; ATTEND Internal Medicine
DX: I26.99 Other pulmonary embolism without acute cor pulmonale (principal); I82.432 Acute embolism and thrombosis of left popliteal vein; C78.89 Secondary malignant neoplasm of other digestive organs; D61.818 Other pancytopenia; R06.89 Other abnormalities of breathing; R91.8 Other nonspecific abnormal finding of lung field; K44.9 Diaphragmatic hernia without obstruction or gangrene
CPT/HCPCS: 84484-PO; 85520-90; 96374; J1642; J1644; Q9957; Q9967

== ENCOUNTER 2018-06-06 07:16 | Inpatient (IN) | payer OTHER ==
--- NOTE | 2018-06-06 07:21 | EDPHY ---
H & P Time Seen by Provider: 06/06/18 07:18 - Medical/Surgical History Hx Asthma: No Hx Chronic Respiratory Disease: No Hx Diabetes: No Hx Cardiac Disease: No Hx Renal Disease: No Hx Cirrhosis: No Hx Alcoholism: No Hx HIV/AIDS: No Hx Splenectomy or Spleen Trauma: No Other PMH: CA liver and lymphnode in abd. Tonsillectomy, retina reattachment - Social History Smoking Status: Former smoker Constitutional: Initial Vital Signs Temperature (C) 36.7 C 06/06/18 07:24 Heart Rate 80 06/06/18 07:24 Respiratory Rate 18 06/06/18 07:24 Blood Pressure 150/74 H 06/06/18 07:24 O2 Sat (%) 84 L 06/06/18 07:24 O2 Delivery Mode Room Air Allergies/Adverse Reactions: No Known Allergies Allergy (Verified 06/06/18 07:24) Home Medications: Medication Instructions Recorded Esomeprazole Magnesium [Nexium 20 mg PO DAILY 12/31/17 24Hr] Tamsulosin HCl [Flomax 0.4 MG (*)] 0.8 mg PO DAILY 12/31/17 Vit C/Dl-E AC/Lut/Copper/Znox 1 each PO BID 12/31/17 [Preservision Softgel] Apixaban [Eliquis 30-day Starter 1 kit PO AD #1 kit 01/01/18 Pack] Medical Decision Making - Diagnostics Imaging Results: Imaging Impressions Head CT 06/06/18 07:26 Impression: 1. No acute hemorrhage, hydrocephalus or mass effect. 2. No enhancing lesions. Findings and recommendations discussed with Emergency Department physician, Rickie Morris MD, at 8:40 hours, 06/06/2018. Final report concurs with initial preliminary interpretation. 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 Since 2011, the patient was in remission for esophageal cancer. However, last September the patient's cancer returned and he was placed on chemo again in September as there were now mets in the liver. Last week the patient did another scan and had more mets in the Liver. His oncologist, Dr. Lantigua, took the patient off of chemo and also planned to order a brain scan. This morning at 03:00am after returning from the bathroom the patient was trying to place his CPAP on again. However, his states that the patient "wasn't making any sense" and his words were "jumbled". The patient's placed the patient back on oxygen but this did not improve his neurological symptoms. He currently states that he is having difficulty saying the words he is thinking of. He denies any weakness in his extremities. No fever , headache, body aches, lightheadedness, chest pain, heart palpitations, shortness of breath, cough, abdominal pain, urinary or bowel complaints, numbness, paresthesias. REVIEW OF SYSTEMS: A 10 point review of systems was performed and is negative with the exception of the elements mentioned in the history of present illness. PHYSICAL EXAM: HR, BP, O2 Sat, RR. Temp noted General Appearance: Alert, well hydrated, appropriate, and non-toxic appearing. Head: Atraumatic without scalp tenderness or obvious injury Eyes: Pupils equal, round, reactive to light and accommodation, EOMI, no trauma , no injection. Ears: Clear bilaterally, no perforation, normal landmarks Nose: Atraumatic, no rhinorrhea, clear. Throat: There is no erythema or exudates, no lesions, normal tonsils, mucus membranes moist. Neck: Supple, 2+ carotid upstroke, nontender, no lymphadenopathy. Respiratory: No retractions, no distress, no wheezes, and no accessory muscle use. Lungs are clear to auscultation bilaterally. Cardiovascular: Regular rate and rhythm, no murmurs, rubs, or gallops. Bilateral carotid, radial, dorsalis pedis, and posterior tibial pulses intact. Good capillary refill all extremities. Gastrointestinal: Abdomen is soft, nontender, non-distended, no masses, no rebound, no guarding, no peritoneal signs. Musculoskeletal: Normal active ROM of all extremities, atraumatic. Neurological: Difficulty stating the words he is thinking. Alert, appropriate, and interactive. The patient has normal DTRs and non-focal cranial nerves, motor, sensory, and cerebellar exam. Skin: No rashes, good turgor, no nodules on palpation. Past medical history: Esophageal cancer with mets to the liver and lymph nodes Past surgical history: Tonsillectomy Family history: Denies Social history: and son at bedside, lives in [place], retired DIAGNOSTICS/PROCEDURES/CRITICAL CARE TIME: EKG: The 12 lead EKG was interpreted by myself as sinus rhythm with a rate of 68 , left axis deviation, borderline t-wave abnormalities. See hard copy and/or "tracemaster" electronic copy for interpretation. Head CT: No acute findings. No mets or bleed in the brain. DIFFERENTIAL DIAGNOSIS: The differential diagnosis for the patient's neurologic deficits included but was not limited to peripheral causes, central causes including CVA, TIA, electrolyte abnormalities and dehydration, cardiogenic causes, atypical causes like migraine syndrome. 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 The patient is having difficulty stating the words he is thinking but has an otherwise normal neurological exam. He does not meet stroke alert criteria as he is on Eliquis and is a current stage 4 esophageal cancer with widespread mets. I presume the patient's symptoms this morning are due to mets in the brain or hypoxia while he was off of oxygen. Labs, EKG, and head CT ordered. 0838: I spoke with Dr. Escoto, radiologist, who reports there are no acute findings on the head CT. Patient's labs are also unremarkable. 0905: Reassessed patient and discussed laboratory and imaging findings. Patient is still altered and will need to be admitted for further observation and evaluation. Patient and his are comfortable with this plan. I will page the hospitalist and the patient's oncologist. 0914: I consulted with Dr. Lantigua, oncologist, regarding this patient. He agrees to consult on this patient during his admission. Patient will need an MRI upon admission. 0927: I consulted with the hospitalist service, Dr. Ball accepts admission of this patient. - Data Points Laboratory Results: Laboratory Results 06/06/18 07:25 06/06/18 07:25 06/06/18 06/06/18 06/06/18 07:32 07:25 07:25 WBC 4.71 10^3/uL 10^3/uL (3.80-9.50) RBC 3.54 10^6/uL L 10^6/uL (4.40-6.38) Hgb 12.3 g/dL L g/dL (13.7-17.5) POC Hgb 12.9 gm/dL L gm/dL (13.7-17.5) Hct 36.2 % L % (40.0-51.0) POC Hct 38 % L % (40-51) MCV 102.3 fL H fL (81.5-99.8) MCH 34.7 pg H pg (27.9-34.1) MCHC 34.0 g/dL g/dL (32.4-36.7) RDW 14.6 % % (11.5-15.2) Plt Count 86 10^3/uL L 10^3/uL (150-400) MPV 11.3 fL fL (8.7-11.7) Neut % (Auto) 64.8 % % (39.3-74.2) Lymph % (Auto) 15.1 % % (15.0-45.0) [place] % (Auto) 14.2 % H % (4.5-13.0) Eos % (Auto) 4.0 % % (0.6-7.6) Baso % (Auto) 1.1 % % (0.3-1.7) Nucleat RBC Rel Count 0.0 % % (0.0-0.2) Absolute Neuts (auto) 3.05 10^3/uL 10^3/uL (1.70-6.50) Absolute Lymphs (auto) 0.71 10^3/uL L 10^3/uL (1.00-3.00) Absolute Monos (auto) 0.67 10^3/uL 10^3/uL (0.30-0.80) Absolute Eos (auto) 0.19 10^3/uL 10^3/uL (0.03-0.40) Absolute Basos (auto) 0.05 10^3/uL 10^3/uL (0.02-0.10) Absolute Nucleated RBC 0.00 10^3/uL 10^3/uL (0-0.01) Immature Gran % 0.8 % % (0.0-1.1) Immature Gran # 0.04 10^3/uL 10^3/uL (0.00-0.10) POC Sodium 141 mEq/L mEq/L (135-145) Sodium 138 mEq/L mEq/L (135-145) POC Potassium 4.1 mEq/L mEq/L (3.3-5.0) Potassium 4.1 mEq/L mEq/L (3.5-5.2) POC Chloride 102 mEq/L mEq/L (97-110) Chloride 104 mEq/L mEq/L (97-110) Carbon Dioxide 26 mEq/l mEq/l (22-31) POC Total CO2 27 mEq/L mEq/L (22-31) Anion Gap 8 mEq/L mEq/L (6-14) POC BUN 16 mg/dL mg/dL (7-23) BUN 18 mg/dL mg/dL (7-23) Creatinine 1.1 mg/dL mg/dL (0.7-1.3) POC Creatinine 1.2 mg/dL mg/dL (0.7-1.3) Estimated GFR > 60 Glucose 114 mg/dL H mg/dL (70-100) POC Glucose 116 mg/dL H mg/dL (70-100) Calcium 8.5 mg/dL mg/dL (8.5-10.4) Point of Care Test Results: Chemistry 06/06/18 07:32 POC Sodium 141 mEq/L mEq/L (135-145) POC Potassium 4.1 mEq/L mEq/L (3.3-5.0) POC Chloride 102 mEq/L mEq/L (97-110) POC Total CO2 27 mEq/L mEq/L (22-31) POC BUN 16 mg/dL mg/dL (7-23) POC Creatinine 1.2 mg/dL mg/dL (0.7-1.3) POC Glucose 116 mg/dL H mg/dL (70-100) ISTAT H&H 06/06/18 07:32 POC Hgb 12.9 gm/dL L gm/dL (13.7-17.5) POC Hct 38 % L % (40-51) Departure - Departure Disposition: [facility] Inpatient Acute Clinical Impression: Dysarthria, Esophageal cancer, stage IV Altered mental status Qualifiers: Altered mental status type: unspecified Qualified Code(s): R41.82 - Altered mental status, unspecified Condition: Fair Instructions: Altered Mental Status (ED) Additional Instructions: 1. Follow-up with your primary doctor within 72 hours. 2. Return to the Emergency Department for fever, chest pain, shortness of breath , increasing pain or other worsening of condition. Referrals: Richy Dalton MD [Primary Care Provider] - As per Instructions Richy Lantigua MD [Medical Doctor] - As per Instructions Report Scribed for: Rickie Morris Report Scribed by: Destini Carias Date of Report: 06/06/18 Time of Report: 07:27
[2018-06-06] MEDS ORDERED: IOPAMIDOL (ISOVUE-300) 100 ML BTL ONE (07:51)
[2018-06-06 07:55] LABS: PLATELET COUNT 86 10^3/uL (150-400)
[2018-06-06] MEDS ORDERED: ONDANSETRON 4 MG/2 ML VIAL IVP PRN (10:21)
[2018-06-06] MEDS ORDERED: ACETAMINOPHEN 325 MG TAB PO PRN (10:21)
[2018-06-06] MEDS ORDERED: ONDANSETRON DISINTEGRATING 4 MG TAB PO PRN (10:21)
--- NOTE | 2018-06-06 10:24 | PDGENHP ---
History and Physical - Chief Complaint confusion, trouble speaking - History of Present Illness 77yo M with metastatic esophageal cancer, DVT/PE on eliquis presents with acute onset difficulty speaking and confusion. Had been in usual state of health yesterday. His found the patient with his CPAP machine off around 3am. She said he was confused and not speaking properly. She thought this may have been due to him taking his oxygen off so she put it back on but his symptoms didn't improve. He denies fall, headstrike, or LOC. No recent fevers, chest pain, palpitations, shortness of breath. No other neurologic issues including weakness , numbness, bowel/bladder incontinence. He was taking coricidin for a cough recently but not yesterday. In the ED, a non-contrasted head CT was negative for any acute pathology. He is being admitted for further evaluation of his aphasia. The ED physician consulted the patient's oncologist, Dr Lantigua. History Information - Allergies/Home Medication List Allergies/Adverse Reactions: No Known Allergies Allergy (Verified 06/06/18 07:24) Home Medications: Esomeprazole Magnesium [Nexium 24Hr] 20 mg PO DAILY 12/31/17 [Last Taken ] Tamsulosin HCl [Flomax 0.4 MG (*)] 0.8 mg PO HS 12/31/17 [Last Taken 06/05/18] Vit C/Dl-E AC/Lut/Copper/Znox [Preservision Softgel] 1 each PO BID 12/31/17 [ Last Taken 06/05/18 21:00] Acetaminophen [Tylenol 325mg (*)] 325 mg PO DAILY PRN 06/06/18 [Last Taken Unknown] Apixaban [Eliquis] 5 mg PO BID 06/06/18 [Last Taken 06/05/18 21:00] Furosemide [Lasix 40 MG (*)] 40 mg PO Q2D 06/06/18 [Last Taken 06/04/18] Psyllium Husk (with Sugar) [Metamucil Packet] 1 each PO DAILY 06/06/18 [Last Taken 06/05/18] I have personally reviewed and updated: family history, medical history, social history, surgical history - Past Medical History Additional medical history: metastatic esophageal cancer (liver), DVT/PE (2017), pancytopenia, hiatal hernia, pulmonary nodules, neuropathy, GRACIELA, 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 Review of Systems Review of Systems: ROS: 10pt was reviewed & negative except for what was stated in HPI & below Physical Exam Physical Exam: Temp Pulse Resp BP Pulse Ox 36.7 C 62 18 131/78 H 100 06/06/18 07:24 06/06/18 08:45 06/06/18 08:45 06/06/18 08:45 06/06/18 08:45 Constitutional: no apparent distress, appears nourished, not in pain Eyes: PERRL, anicteric sclera, EOMI Ears, Nose, Mouth, Throat: moist mucous membranes, hearing normal, ears appear normal, no oral mucosal ulcers Cardiovascular: regular rate and rhythym, no murmur, rub, or gallop, No edema Respiratory: no respiratory distress, no rales or rhonchi, clear to auscultation Gastrointestinal: normoactive bowel sounds, soft, non-tender abdomen, no palpable masses Genitourinary: no bladder fullness, no bladder tenderness Skin: warm, normal color, no rashes or abrasions, no fluctuance, no induration, No mottled Musculoskeletal: full muscle strength, no muscle tenderness, normal joint ROM, no joint effusions Neurologic: CN II-XII Intact, other (alert, not oriented, not reliably following commands, dysarthric with expressive aphasia), No weakness, No numbness, No asterixes Psychiatric: encephalopathic Lab Data & Imaging Review 06/06/18 07:25 06/06/18 07:25 WBC 4.71 10^3/uL (3.80-9.50) 06/06/18 07:25 RBC 3.54 10^6/uL (4.40-6.38) L 06/06/18 07:25 Hgb 12.3 g/dL (13.7-17.5) L 06/06/18 07:25 POC Hgb 12.9 gm/dL (13.7-17.5) L 06/06/18 07:32 Hct 36.2 % (40.0-51.0) L 06/06/18 07:25 POC Hct 38 % (40-51) L 06/06/18 07:32 MCV 102.3 fL (81.5-99.8) H 06/06/18 07:25 MCH 34.7 pg (27.9-34.1) H 06/06/18 07:25 MCHC 34.0 g/dL (32.4-36.7) 06/06/18 07:25 RDW 14.6 % (11.5-15.2) 06/06/18 07:25 Plt Count 86 10^3/uL (150-400) L 06/06/18 07:25 MPV 11.3 fL (8.7-11.7) 06/06/18 07:25 Neut % (Auto) 64.8 % (39.3-74.2) 06/06/18 07:25 Lymph % (Auto) 15.1 % (15.0-45.0) 06/06/18 07:25 [place] % (Auto) 14.2 % (4.5-13.0) H 06/06/18 07:25 Eos % (Auto) 4.0 % (0.6-7.6) 06/06/18 07:25 Baso % (Auto) 1.1 % (0.3-1.7) 06/06/18 07:25 Nucleat RBC Rel Count 0.0 % (0.0-0.2) 06/06/18 07:25 Absolute Neuts (auto) 3.05 10^3/uL (1.70-6.50) 06/06/18 07:25 Absolute Lymphs (auto) 0.71 10^3/uL (1.00-3.00) L 06/06/18 07:25 Absolute Monos (auto) 0.67 10^3/uL (0.30-0.80) 06/06/18 07:25 Absolute Eos (auto) 0.19 10^3/uL (0.03-0.40) 06/06/18 07:25 Absolute Basos (auto) 0.05 10^3/uL (0.02-0.10) 06/06/18 07:25 Absolute Nucleated RBC 0.00 10^3/uL (0-0.01) 06/06/18 07:25 Immature Gran % 0.8 % (0.0-1.1) 06/06/18 07:25 Immature Gran # 0.04 10^3/uL (0.00-0.10) 06/06/18 07:25 POC Sodium 141 mEq/L (135-145) 06/06/18 07:32 Sodium 138 mEq/L (135-145) 06/06/18 07:25 POC Potassium 4.1 mEq/L (3.3-5.0) 06/06/18 07:32 Potassium 4.1 mEq/L (3.5-5.2) 06/06/18 07:25 POC Chloride 102 mEq/L (97-110) 06/06/18 07:32 Chloride 104 mEq/L (97-110) 06/06/18 07:25 Carbon Dioxide 26 mEq/l (22-31) 06/06/18 07:25 POC Total CO2 27 mEq/L (22-31) 06/06/18 07:32 Anion Gap 8 mEq/L (6-14) 06/06/18 07:25 POC BUN 16 mg/dL (7-23) 06/06/18 07:32 BUN 18 mg/dL (7-23) 06/06/18 07:25 Creatinine 1.1 mg/dL (0.7-1.3) 06/06/18 07:25 POC Creatinine 1.2 mg/dL (0.7-1.3) 06/06/18 07:32 Estimated GFR > 60 06/06/18 07:25 Glucose 114 mg/dL (70-100) H 06/06/18 07:25 POC Glucose 116 mg/dL (70-100) H 06/06/18 07:32 Calcium 8.5 mg/dL (8.5-10.4) 06/06/18 07:25 Assessment & Plan Assessment: 77yo M with metastatic esophageal cancer, DVT/PE on eliquis presents with acute onset difficulty speaking and confusion. 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 - MRI brain w/wo ordered - Checking ammonia level - Holding eliquis until imaging completed - Will consult neurology #Acute metabolic encephalopathy: Not at baseline per family. Neuro deficits as above. - Avoid centrally acting meds #Anemia, thrombocytopenia: Chronic. Monitor. #Chronic hypoxemia: At baseline 3L/min. #Metastatic esophageal cancer: Liver mets were repeatedly increased on recent scan. Followed by Dr Lantigua. - Oncology consulted #DVT/PE: Diagnosed 12/2017 - Holding eliquis as above #GRACIELA: CPAP at night #Pulmonary nodules #Hiatal hernia VTE ppx: SCDs Code: DNR/DNI Diet: swallow study Dispo: Admit under observation
[2018-06-06] MEDS ORDERED: GADOBUTROL 10 ML VIAL IVP ONE (10:53)
--- NOTE | 2018-06-06 13:16 | CPEKG ---
Test Reason : OPEN Blood Pressure : / mmHG Vent. Rate : 063 BPM Atrial Rate : 063 BPM P-R Int : 206 ms QRS Dur : 106 ms QT Int : 429 ms P-R-T Axes : 029 -36 -12 degrees QTc Int : 440 ms Sinus rhythm Left axis deviation Borderline T abnormalities, inferior leads Confirmed by Rickie Morris ([id number]) on 06/06/2018 1:16:09 PM Referred By: Rickie Morris Confirmed By:Rickie Morris
--- NOTE | 2018-06-06 13:25 | ASMTCMCOM ---
CM Note CM Note Notes: Reviewed chart. Pt presented to the Emergency Department with confusion and difficulty speaking. History includes esophageal cancer with metastatic disease to the liver and lymph nodes, DVT/PE, pancytopenia, hiatal hernia, pulmonary nodules, neuropathy, and GRACIELA. Pt is . He is accompanied by his and son. Pt to be admitted for further evaluation and treatment. Discharge needs remain unclear at this time. CM will continue to follow. Discharge Plan: To be determined Date Signed: 06/06/2018 01:25 PM Electronically Signed By:Silvia Garcia RN
--- NOTE | 2018-06-06 16:21 | ECHO ---
[email or web address] [address] [address] Main: [phone] Echocardiography Examination Transthoracic Name: JOSE PIMENTEL MR#: [id number] Study Date: 06/06/2018 Study Time: 02:33 PM Date of : 1940 Age: 77 year(s) Height: 182.9 cm (72 in.) Weight: 81.65 kg (180 lb.) BSA: 2.04 m2 Gender: Male Examination: Echo with Agitated Saline Indication: ischemic stroke, eval with bubble Image Quality: Adequate Contrast: I.V. dose of agitated saline Requested by: Lucian Ball BP: 127 mmHg/72 mmHg Heart Rate: 67 bpm Rhythm: Normal sinus rhythm Indication: ischemic stroke, eval with bubble Procedure Staff Referring Physician: Change Attendant: Barbara Orta [facility] Reading Physician: Hal Pan MD Requesting Provider: Ordering Physician: Lucian Ball Indication: ischemic stroke, eval with bubble Measurements Chambers AV/MV Label Value Normal Value Label Value Normal Value IVSd, 2D 1.1 cm (0.6cm - 1.1cm) AR PHT 0.39 s LVDd, 2D 6.3 cm (4.2cm - 5.9cm) AR PHT 393 ms LVDs, 2D 4.3 cm (2.1cm - 4cm) AR Vena contracta 0.5 cm LVEF, 2D 59 % (54% - 74%) AR Vmax 4.85 m/s LVEF, BP 59 % (55% - 70%) AV PGmax 7 mmHg LVEF, MOD2 58 % (55% - 70%) AV PGmean 5 mmHg LVEF, MOD4 59 % (55% - 70%) AV Vmax, [place] 1.34 m/s LVOT PGmean 1 mmHg DADA D (continuity eq. 2.3 cm2 LVOT Vmean 0.56 m/s VTI) LVOTd 2.4 cm (1.9cm - 2.1cm) MR Defect Area (ERO) 0.36 cm2 LVPWd, 2D 0.9 cm (0.6cm - 1cm) MR PISA Alias V. 35.1 cm/s RVDd, 2D 3.9 cm (1.9cm - 3.8cm) MR PISA Radius 0.9 cm TAPSE 1.7 cm MR Reg. Fraction 31 % LA Volume, A2C 62 ml (18ml - 58ml) MR Reg. Volume 66 ml LADs, 2D 4.3 cm (3cm - 4cm) MR Vena Contracta 0.7 cm LAESV index, MOD2 30.4 ml/m2 MR Vmax 4910 m/s RA Area 19.3 cm2 MR VTI 184 cm Additional Vessels MV A Vmax 0.64 m/s Patient: JOSE PIMENTEL Study Date: 06/06/2018 Page 1 of 3 02:33 PM Label Value Normal Value MV Tram 3.6 cm AoAsc 3.3 cm MV DT 183 ms AoRoot, 2D 4 cm (1.4cm - 2.6cm) MV E' lateral 0.06 m/s MV E' mean 0.05 m/s MV E' septal 0.04 m/s MV E Vmax 1.22 m/s MV E/A 1.91 MV E/E' lateral 20.5 MV E/E' mean 24.4 MV E/E' septal 29.8 (0.45 - 1.25) MV PGmax 3 mmHg MV PGmean 1 mmHg MV VTI 20.7 cm MVA D (continuity eq.) 3.8 cm2 TV/PV Label Value Normal Value RA Pressure 5 mmHg RVSP 34 mmHg TR Pmax 29 mmHg TR Vmax 2.69 m/s PV PGmax 2 mmHg PV Vmax, [place] 0.75 m/s (0.6m/s - 0.9m/s) Conclusions Left Ventricle: Left ventricle is mildly dilated. Normal global systolic left ventricular function. IAS: An agitated saline study was performed and was negative for intracardiac shunting. Mitral Valve: Severe mitral regurgitation. There is mild mitral thickening. Aortic Valve: Severe aortic regurgitation is present. The aortic valve is trileaflet. Tricuspid Valve: Right Ventricular systolic pressure is measured at 34 mmHg. Aorta: The aortic root size in 2D measures 4.0 cm. Aorta Measurements AoRoot, 2D is 4.0 cm. Overall Conclusions: When compared to the 12/31/17 study. The degree of mitral regurgitation increased from mild/moerate to severe. The degree of aortic insufficiency increased from mild to severe. Patient: JOSE PIMENTEL Study Date: 06/06/2018 Page 2 of 3 02:33 PM Findings Left Ventricle: Left ventricle is mildly dilated. Normal global systolic left ventricular function. The ejection fraction, measured by Simpsons method, is 59 %. Left ventricle wall thickness is normal. Although no diagnostic regional wall motion abnormality was identified, this possibility cannot be completely excluded on the basis of this study. Cannot determine LAP and Diastolic Dysfunction Grade. Right Ventricle: Upper normal size right ventricle. The RV function appears grossly normal. Left Atrium: The left atrium is normal in size. IAS: An agitated saline study was performed and was negative for intracardiac shunting. Right Atrium: The right atrium is mildly dilated. Mitral Valve: Severe mitral regurgitation. No mitral valve stenosis. There is mild mitral thickening. There is mild mitral annular calcification. Aortic Valve: Severe aortic regurgitation is present. There is no aortic stenosis. The aortic valve is trileaflet. There is aortic sclerosis present. Tricuspid Valve: Tricuspid valve leaflets are normal in appearance and function. Trivial tricuspid regurgitation. No tricuspid valve stenosis. Right Ventricular systolic pressure is measured at 34 mmHg. Pulmonary artery pressure normal. Pulmonic Valve: Pulmonic leaflets exhibit normal cuspal separation. Trivial pulmonic valve regurgitation is present. Aorta: The aorta is normal. The aortic root size in 2D measures 4.0 cm. The aortic root exhibits mild dilatation. The ascending aorta measures 3.3 cm. Aorta Measurements AoRoot, 2D is 4.0 cm. Pulmonary Vein: There is systolic flow reversal in the pulmonary vein. IVC: The inferior vena cava is normal in size and course. Pericardium: No pericardial effusion. Exam Details Procedure Ordered: Echo with Agitated Saline Procedure Status: Routine study Image Quality: Adequate Contrast: I.V. dose of agitated salineIntravenous contrast was administered to evaluate possible R-L intracardiac shunting Facility Location: Cardiac Echo 1 (No Signature Object) Patient: JOSE PIMENTEL Study Date: 06/06/2018 Page 3 of 3 02:33 PM [id number]
[2018-06-06] MEDS: ASPIRIN 81 MG CHEWABLE TAB PO SCH (17:14)
[2018-06-06] MEDS: ENOXAPARIN 80 MG/0.8 ML SYR SC SCH (17:14)
[2018-06-06] MEDS ORDERED: IOPAMIDOL (ISOVUE 370) 100 ML BTL IV ONE (18:20)
[2018-06-06] MEDS: TAMSULOSIN HCL 0.4 MG CAP PO SCH (21:28)
--- NOTE | 2018-06-06 21:31 | GCON ---
[f rep st] CONSULTATION ONCOLOGY CONSULTATION NOTE DATE OF CONSULTATION: 06/06/2018 REASON FOR CONSULTATION: 1. Metastatic esophageal carcinoma. 2. Multiple new diffuse cortical infarcts. HISTORY OF PRESENT ILLNESS: The patient is a pleasant 77-year-old gentleman who is followed by my pa rtner, Dr. Richy Lantigua. 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 At the time of his diagnosis, he was found to have an area of isolated bony metastasis. He w as treated initially with combined modality therapy with radiation and weekly radiosensitizing paclit tammi and carboplatin. He has had multiple palliative chemotherapy regimens since. Most recently, he was receiving palliative FOLFOX chemotherapy. His most recent cycle was given on May 20, 2018. A restaging CT of the chest, abdomen, and pelvis performed on May 28 unfortunately revealed in terval progression of his disease with increase in size and number of multiple hepatic metastases. A t his most recent appointment of June 04, the patient had reported feeling "out of sorts." Given e vidence of disease progression elsewhere, an MRI of the brain was ordered to be done in the outpatien t setting. The patient's called me at 6 a.m. this morning reporting that he was not making sense. He was h aving trouble speaking. She had found him in the bedroom without his BiPAP on. She reattached his o xygen, but he still was unable to complete sentences. I asked her to bring him to [facility] by ambulance. Her son brought him in. He was evaluated and admitted. An initial CT scan p erformed in the ER showed no acute abnormalities; however, a subsequent MRI of the brain performed ea anum today reveals multiple bilateral diffuse small cortical infarcts throughout both cerebral hemis pheres and bilateral cerebellar hemispheres, potentially due to diffuse hypoxic injury. There is no evidence of hemorrhage or mass effect. There is no evidence of metastatic disease to the brain. The patient's difficulty speaking persists. When seen this afternoon, he is working with the [facility] therapist. He has been started on Lovenox. An echocardiogram has been done which shows no margie dence of an embolic source. He does have a severe aortic regurgitation. The patient's medical history is notable for a prior DVT, PE, felt related to his malignancy for whic h he has been maintained on Eliquis. PAST MEDICAL HISTORY: 1. Metastatic esophageal carcinoma as outlined above. 2. History of left retinal detachment. 3. Hypertension. 4. Obstructive sleep apnea (patient uses CPAP). PRIOR SURGICAL HISTORY: 1. Tonsillectomy. 2. Left eye surgery. FAMILY MEDICAL HISTORY: The patient's sister of complications of lupus. Patient's mother of an unknown blood disorder in 1967. Patient's father at age 90 of unclear cause. SOCIAL HISTORY: The patient is . He is currently retired. 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 He drinks a moderate amount of alcohol. He is a nonsmoker. REVIEW OF SYSTEMS: Difficult to obtain due to his aphasia. He denies pain, headache, visual changes , extremity weakness, or numbness. PHYSICAL EXAMINATION: GENERAL: Patient has noted persistent difficulty speaking. At times, he can nearly complete sentences, and at other times is unable to do so. He exhibits word-finding difficult y. He is in no acute distress. HEENT: Pupils equal. Sclerae nonicteric. Conjunctivae normal. NE CK: There is no palpable submandibular, cervical, or supraclavicular adenopathy. HEART: Regular wi thout murmur. There is no carotid bruit bilaterally. LUNGS: Clear bilaterally. There is no flank tenderness. ABDOMEN: Soft, nontender, nondistended. No epigastric tenderness or mass. No organome euseibo. No extremity swelling or edema. Patient's motor strength in the upper and lower extremities i s grossly 5/5 and symmetric. No ecchymosis or petechiae. DATA REVIEWED: MRI result as outlined above. Echocardiogram as outlined above. Laboratory studies: White count 4.7, hemoglobin 12.3, hematocrit 36.2, MCV 102.3, platelet count is 86,000. Sodium 141, potassium 4.1, chloride 102, bicarb 27, BUN 16, creatinine 1.2. Liver function tests unremarkable. IMPRESSION: 1. Metastatic esophageal carcinoma with recent CT evidence of progressive metastatic disease in the liver. 2. Aphasia with multiple diffuse cortical infarcts noted on brain MRI. The patient is a pleasant 77-year-old gentleman with a known diagnosis of metastatic esophageal cance r. He was recently receiving palliative FOLFOX chemotherapy but was noted to have progressive diseas e on a CT chest, abdomen, pelvis done on May 28. Dr. Lantigua is in the process of determining his next treatment options. The patient presents to the hospital now with acute onset aphasia and evidence of multiple small marty ical infarcts throughout both cerebral hemispheres, suggesting either a hypoxic event or multiple sma ll emboli. An echocardiogram shows no evidence of thrombus or source of embolism. The patient is du e to get a CT angiogram of the neck. Given his history of malignancy, I favor discontinuing his Eliquis and starting him on Lovenox 1 mg/k g twice daily. Given that he appears to have multiple small ischemic infarcts, I also favor starting aspirin therapy at a dose of 81 mg daily. Both have been started. I have ordered anticardiolipin antibodies and vjje-[id number]-zfixpxiflclo antibodies as rarely malignancy has been associated with antiphospholipid antibody syndrome. The patient is due to be seen by Neurology later today and we will await their recommendations. Speech therapy has already been initiated in the hospital setting. We will need to wait to see the degree of neurologic recovery over the next several days. Our service will continue to follow him. I will defer decision regarding his next line of therapy to his primary oncologist, Dr. Lantigua, and we will plan on having the patient meet with Dr. Lantigua in the outpatient setting once discharged to discuss further palliative therapy options which are in pa rt going to be based on a foundation profile which has been sent and is pending. The plan was discus sed with the patient, Dr. Ball, and [facility] nursing staff. Total time for today's visit was approximately 45 minutes of which greater than 50% was spent in coun seling and care coordination. /[id number]/MODL
[2018-06-07] MEDS: ENOXAPARIN 80 MG/0.8 ML SYR SC SCH ×2 (05:05→16:01)
[2018-06-07] MEDS: ASPIRIN 81 MG CHEWABLE TAB PO SCH (08:25)
[2018-06-07] MEDS: PANTOPRAZOLE SODIUM 40 MG TAB PO SCH (08:25)
--- NOTE | 2018-06-07 08:52 | HOSPPROG ---
Hospitalist Progress Note Assessment/Plan: 77yo M with metastatic esophageal cancer, DVT/PE on eliquis presents with acute onset difficulty speaking and confusion. #Acute ischemic CVA: Diffuse small infarcts in bilateral cerebral and cerebellar hemispheres. Suspect hypoxic injury vs thromboembolic. - Neurology consulted - TTE without PFO, tele without arrhythmia - CTA head/neck negative - Stopped eliquis and started LMWH 1mg/kg - Started aspirin - Discuss statin prior to dc - BP goal <220/120 until this evening, then <140 - PT, OT, MARKET RESEARCH ANALYST evals appreciated - Antiphospholipid panel pending #Acute metabolic encephalopathy: D/t above. Resolving, near baseline per family. #Chronic hypoxemia: At baseline 3L/min. #Valvular heart disease: Progression from mild/moderate to severe AI and MR on echo. He is euvolemic. Will need outpt TTE surveillance. - Consider cardiology consultation this admission #Anemia, thrombocytopenia: Chronic, monitor #Metastatic esophageal cancer: Liver mets were repeatedly increased on recent scan. Followed by Dr Lantigua. #DVT/PE: Diagnosed 12/2017. Anticoagulation as above. #GRACIELA: CPAP at night #Pulmonary nodules #Hiatal hernia VTE ppx: SCDs Code: DNR/DNI Diet: nectar thick liquids, regular texture Dispo: Switch to inpatient Updated patient, , and son regarding plan. Subjective: Speech slightly better per patietn and family. Not confused. No other new symptoms. Objective: Vital Signs Temp Pulse Resp BP Pulse Ox 36.5 C 64 19 105/56 L 95 06/07/18 07:12 06/07/18 07:12 06/07/18 07:12 06/07/18 07:12 06/07/18 07:12 Laboratory Results 06/07/18 04:27 06/06/18 06/07/18 06/08/18 05:59 05:59 06:59 Intake Total 460 Output Total 1350 Balance -890 - Physical Exam Constitutional: no apparent distress, appears nourished, not in pain Eyes: PERRL, anicteric sclera, EOMI Ears, Nose, Mouth, Throat: moist mucous membranes, hearing normal, ears appear normal, no oral mucosal ulcers Cardiovascular: regular rate and rhythym, systolic murmur, No JVD, No edema Respiratory: no respiratory distress, no rales or rhonchi, clear to auscultation Gastrointestinal: normoactive bowel sounds, soft, non-tender abdomen, no palpable masses Genitourinary: no bladder fullness, no bladder tenderness, no renal bruits Skin: no rashes or abrasions, no fluctuance, no induration Musculoskeletal: full muscle strength, no muscle tenderness, normal joint ROM Neurologic: AAOx3, sensation intact bilaterally, CN II-XII Intact, other ( dysarthrtic and expressive aphasia), No weakness Psychiatric: interacting appropriately ICD10 Worksheet Patient Problems: Problems Problem Status Onset Altered mental status Acute Dysarthria Acute Esophageal cancer, stage IV Acute Pulmonary embolism Acute
--- NOTE | 2018-06-07 09:25 | NEUROPROG ---
Assessment: [id number] - Neurology Consult: - CC: Stroke - HPI: 06/07/18: Pt with metastatic esophageal cancer and prior DVT/PE in 01/16 now on Eliquis presented to [facility] ER on 06/06/18 with trouble speaking and confusion. Brain MRI wwo showed bilateral small strokes. Pt admitted and his oncologist saw patient. Pt seen on 06/07/18. Neurologic exam shows expressive aphasia and lack of sight in left eye (old finding per patient). CTA head/neck and TTE show no clear cause of stroke. LDL 115 (recommended beginning statin as pt not on one) and H1AC 5.5. Unclear cause of stroke. Could be hypercoag state from underlying cancer (pt with DVT/PE on 01/16 supporting this possibility). Pt may also have had an embolic shower. TTE showed no cardiac thrombus and plan is to continue anticoagulation so no need for more extensive cardiac studies at this time. Oncology recommended changing Eliquis to Lovenox and beginning aspirin 81 mg qd which seems reasonable given the situation. Continued use of anticoagulation is a risk for transforming ischemic stroke to hemorrhagic stroke but given prior PE/DVT and ischemic stroke occurring on Eliquis makes it seem very high risk to stop anticoagulation at this time. 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 Oriented but not able to answer questions . concentration appears normal . speech fluency/comprehension shows expressive aphasia . memory appears difficult to test . fund of knowledge appear intact - Cranial Nerves: . II: Right eye normal vision and normal pupil, no vision in left eye (old finding) . III/IV/: EOMI, no nystagmus, normal smooth pursuits, no Ptosis . V: facial sensation intact to LT . VII: face symmetric to eye closure and smile . VIII: hearing intact to conversation . IX/X: uvula raises symmetrically . XI: SCM 5/5 B/L strength . XII: tongue protrudes midline w/nl strength - Motor: . Tone: normal tone in all 4 extremity . Strength: no pronator drift, strength 5/5 throughout (B/L delt, bic, tri, hand water resource consultant, hf/he, df/pf) - Reflexes: B/L bic 2/4 - Sensory: all 4 extremity intact to light touch - Coord: SAUMYA wnl - Gait: deferred - Labs: 06/06/18- H1AC 5.5, LDL 115 - Rads: 06/06/18- Brain MRI wwo: Multiple bilateral diffuse small cortical infarcts throughout bilateral cerebral hemispheres and bilateral cerebellar hemispheres, most prominent in the left parietal and occipital lobes probably secondary to diffuse hypoxic injury. No acute hemorrhage, hydrocephalus or mass effect. Mild cerebral atrophy and moderate microvascular ischemic gliosis. No hemorrhagic metastasis or enhancing metastasis (I personally visualized the images on 06/07/18 ) - 06/06/18- TTE: no cardiac thrombus noted - 06/06/18- Head/neck CTA: no acute vascular findings - Assessment: 1. Bilateral Strokes in cerebellum and cerebral lobes: Unclear cause of stroke. Could be hypercoag state from underlying cancer (pt with DVT/PE on 01/16 supporting this possibility). Pt may also have had an embolic shower. TTE showed no cardiac thrombus and plan is to continue anticoagulation so no need for more extensive cardiac studies at this time given it does not appear it would ion exchange operator. Given underlying metastatic cancer it seems prudent to question the risk/benefit analysis of additional evaluations going forward. - 2. Prior DVT/PE on 01/16 - 3. Metastatic Esophageal Cancer - Plan: - Agree with plan to change Eliquis to Lovenox for stroke prevention - Agree with starting aspirin 81 mg qd for stroke prevention (stroke occurred on Eliquis on 06/06/18) - Blood pressure goal < 220/120 x 48 hours then < 140/90 - H1AC < 7.0 (5.5) - LDL < 70 (115), recommend beginning a statin - PT/OT/Speech to determine rehab needs - Agree with oncology consult - F/U in neurology clinic 1-6 weeks after hospital discharge - Neurology will continue to follow Objective: Vital Signs Temp Pulse Resp BP Pulse Ox 36.5 C 64 19 105/56 L 95 06/07/18 07:12 06/07/18 07:12 06/07/18 07:12 06/07/18 07:12 06/07/18 07:12 Laboratory Results 06/07/18 04:27 06/06/18 06/07/18 06/08/18 05:59 05:59 06:59 Intake Total 460 Output Total 1350 Balance -890 Allergies/Adverse Reactions: No Known Allergies Allergy (Verified 06/06/18 07:24)
[2018-06-07] MEDS: PSYLLIUM METAMUCIL 1 PKT PO SCH (09:34)
--- NOTE | 2018-06-07 15:35 | ASMTCMCOM ---
CM Note CM Note Notes: PT recommending inpatient rehab. Left msg for Michaela and sent referral via [employer]. IR order in chart. CM will continue to follow. D/C plan: TBD Date Signed: 06/07/2018 03:35 PM Electronically Signed By:BEN Abreu
[2018-06-07] MEDS: TAMSULOSIN HCL 0.4 MG CAP PO SCH (20:07)
[2018-06-08] MEDS: ENOXAPARIN 80 MG/0.8 ML SYR SC SCH ×2 (04:41→16:18)
[2018-06-08] MEDS: FUROSEMIDE 40 MG TAB PO SCH ×2 (09:00→09:05)
[2018-06-08] MEDS: ASPIRIN 81 MG CHEWABLE TAB PO SCH (09:05)
[2018-06-08] MEDS: PANTOPRAZOLE SODIUM 40 MG TAB PO SCH ×2 (09:05→09:43)
[2018-06-08] MEDS: PSYLLIUM METAMUCIL 1 PKT PO SCH (09:43)
--- NOTE | 2018-06-08 09:56 | SOAPPROG ---
SOAP Progress Note Assessment/Plan: A/P: * Multiple bilateral cerebral and cerebellar strokes: Negative TTE, CTA head/ neck. ?Hypercoagulable state of malignancy. Prior Eliquis was changed to therapeutic Lovenox with the addition of aspirin. He is being evaluated for rehab. - APS w/u pending * Metastatic esophageal cancer: Most recent CT (05/28/2018) demonstrated progressive liver disease on palliative FOLFOX (last cycle 05/20/18). Further treatment will be dependent on his neurologic recovery and overall performance status. * History of DVT/PE: Previously on Eliquis, now therapeutic Lovenox. 06/08/18 09:53 Subjective: He is aware of his cognitive issues and word finding difficulty. No CP. O: VS reviewed. BP controlled. Gen: elderly gentleman, NAD. Lungs: breathing comfortably. Neuro: expressive aphasia, alert. Laboratory Tests 06/06/18 06/06/18 06/08/18 07:25 07:32 04:20 WBC 4.92 Hgb 11.7 L Plt Count 110 L POC Sodium 141 POC Potassium 4.1 POC Chloride 102 POC Total CO2 27 POC Creatinine 1.2 POC Glucose 116 H Total Bilirubin 0.9 Conjugated Bilirubin 0.5 Unconjugated Bilirubin 0.4 AST 39 ALT 37 Alkaline Phosphatase 92 Objective: Vital Signs Temp Pulse Resp BP Pulse Ox 36.3 C 71 18 115/70 92 06/08/18 07:16 06/08/18 07:16 06/08/18 07:16 06/08/18 07:16 06/08/18 07:16 Laboratory Results 06/08/18 04:20 06/07/18 06/08/18 06/09/18 04:59 05:59 05:59 Intake Total Output Total Balance ICD10 Worksheet Patient Problems: Problems Problem Status Onset Altered mental status Acute Dysarthria Acute Esophageal cancer, stage IV Acute Pulmonary embolism Acute
--- NOTE | 2018-06-08 10:45 | HOSPPROG ---
Hospitalist Progress Note Assessment/Plan: 77yo M with metastatic esophageal cancer, DVT/PE on eliquis presents with acute onset difficulty speaking and confusion. #Acute ischemic CVA: Diffuse small infarcts in bilateral cerebral and cerebellar hemispheres. Suspect hypoxic injury vs thromboembolic. Expressive aphasia slight improvement today. - Neurology consulted - TTE without PFO, tele without arrhythmia - CTA head/neck negative - Stopped eliquis and started LMWH 1mg/kg - Started aspirin and statin - BP goal <140 - PT, OT, DIRECTOR FUNERAL recommending inpt rehab - consult placed - Antiphospholipid panel pending #Acute metabolic encephalopathy: D/t above. Resolving, near baseline per family. #Chronic hypoxemia: At baseline 3L/min. #Valvular heart disease: Progression from mild/moderate to severe AI and MR on echo. He is euvolemic. Will need outpt TTE surveillance. #Anemia, thrombocytopenia: Chronic, monitor #Metastatic esophageal cancer: Liver mets were repeatedly increased on recent scan. Followed by Dr Lantigua. #DVT/PE: Diagnosed 12/2017. Anticoagulation as above. #GRACIELA: CPAP at night #Pulmonary nodules #Hiatal hernia VTE ppx: SCDs Code: DNR/DNI Diet: nectar thick liquids, regular texture Dispo: remain inpatient Updated patient, son regarding plan. Subjective: JR (son) thinks speech is a bit better. Still with word finding difficulty, patient is aware of this Objective: Vital Signs Temp Pulse Resp BP Pulse Ox 36.3 C 71 18 115/70 92 06/08/18 07:16 06/08/18 07:16 06/08/18 07:16 06/08/18 07:16 06/08/18 07:16 Laboratory Results 06/08/18 04:20 06/07/18 06/08/18 06/09/18 04:59 05:59 05:59 Intake Total Output Total Balance - Physical Exam Constitutional: no apparent distress, appears nourished, not in pain Eyes: PERRL, anicteric sclera, EOMI Ears, Nose, Mouth, Throat: moist mucous membranes, hearing normal, ears appear normal, no oral mucosal ulcers Cardiovascular: regular rate and rhythym, no murmur, rub, or gallop Respiratory: no respiratory distress, no rales or rhonchi, clear to auscultation Gastrointestinal: normoactive bowel sounds, soft, non-tender abdomen, no palpable masses Genitourinary: no bladder fullness, no bladder tenderness, no renal bruits Skin: no rashes or abrasions, no fluctuance, no induration Musculoskeletal: full muscle strength, no muscle tenderness, normal joint ROM Neurologic: AAOx3, other (dsyarthria improving, expressive aphasia still present ) Psychiatric: interacting appropriately, not anxious, not encephalopathic, thought process linear ICD10 Worksheet Patient Problems: Problems Problem Status Onset Altered mental status Acute Dysarthria Acute Esophageal cancer, stage IV Acute Pulmonary embolism Acute
--- NOTE | 2018-06-08 12:56 | PDMN ---
Medical Necessity Medical [place] [facility] [place] St[place], 2 days: 77 yo presents w/ acute onset difficulty speaking and confusion. Initally OBS for workup but MRI shows acute ischemic CVA w/ hypoxic injury, neuro consult, TTE ordered, PT/OT/SP ordered, manage BP. Hx metastatic esophageal ca, DVT/PE, pancytopenia. Change to IP status 06/07/18@1320 per MD order.
--- NOTE | 2018-06-08 12:59 | NEUROPROG ---
Assessment: [id number] - Neurology Consult: - CC: F/U for Stroke - Narrative Summary: 06/07/18: Pt with metastatic esophageal cancer and prior DVT/PE in 01/16 now on Eliquis presented to [facility] ER on 06/06/18 with trouble speaking and confusion. Brain MRI wwo showed bilateral small strokes. Pt admitted and his oncologist saw patient. Pt seen on 06/07/18. Neurologic exam shows expressive aphasia and lack of sight in left eye (old finding per patient). CTA head/neck and TTE show no clear cause of stroke. LDL 115 (recommended beginning statin as pt not on one) and H1AC 5.5. Unclear cause of stroke. Could be hypercoag state from underlying cancer (pt with DVT/PE on 01/16 supporting this possibility). Pt may also have had an embolic shower. TTE showed no cardiac thrombus and plan is to continue anticoagulation so no need for more extensive cardiac studies at this time. Oncology recommended changing Eliquis to Lovenox and beginning aspirin 81 mg qd which seems reasonable given the situation. Continued use of anticoagulation is a risk for transforming ischemic stroke to hemorrhagic stroke but given prior PE/DVT and ischemic stroke occurring on Eliquis makes it seem very high risk to stop anticoagulation at this time. - HPI: F/U 06/08/18. Pts speech improved. No new complaints. Neurology will sign off. 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 No acute hemorrhage, hydrocephalus or mass effect. Mild cerebral atrophy and moderate microvascular ischemic gliosis. No hemorrhagic metastasis or enhancing metastasis (I personally visualized the images on 06/07/18 ) - 06/06/18- TTE: no cardiac thrombus noted - 06/06/18- Head/neck CTA: no acute vascular findings - Assessment: 1. Bilateral Strokes in cerebellum and cerebral lobes on 06/06/18 causing expressive aphasia: Unclear cause of stroke. Could be hypercoag state from underlying cancer (pt with DVT/PE on 01/16 supporting this possibility). Pt may also have had an embolic shower. TTE showed no cardiac thrombus and plan is to continue anticoagulation so no need for more extensive cardiac studies at this time given it does not appear it would exchange consultant. - 2. Prior DVT/PE on 01/16 - 3. Metastatic Esophageal Cancer - Plan: - Agree with plan to change Eliquis to Lovenox for stroke prevention, defer decision to returning to oral anticoagulation to oncology/hematology - Agree with starting aspirin 81 mg qd for stroke prevention (stroke occurred on Eliquis on 06/06/18) - Blood pressure goal < 220/120 x 24 hours then < 140/90 - H1AC < 7.0 (5.5) - LDL < 70 (115), recommend beginning a statin - PT/OT/Speech to determine rehab needs - Agree with oncology consult - F/U in neurology clinic 1-6 weeks after hospital discharge - Neurology will sign off but will be happy to become reinvolved if needed - 35 min spent with patient and son, majority of time spent counseling on condition and treatment plan as well as prognosis Objective: Vital Signs Temp Pulse Resp BP Pulse Ox 36.6 C 59 L 17 125/73 H 97 06/08/18 10:57 06/08/18 10:57 06/08/18 10:57 06/08/18 10:57 06/08/18 10:57 Laboratory Results 06/08/18 04:20 06/07/18 06/08/18 06/09/18 04:59 05:59 05:59 Intake Total Balance Allergies/Adverse Reactions: No Known Allergies Allergy (Verified 06/06/18 07:24)
[2018-06-08] MEDS: TAMSULOSIN HCL 0.4 MG CAP PO SCH (21:24)
[2018-06-09] MEDS: ENOXAPARIN 80 MG/0.8 ML SYR SC SCH ×2 (04:43→15:15)
[2018-06-09 05:09] LABS: PLATELET COUNT 124 10^3/uL (150-400)
[2018-06-09] MEDS: PANTOPRAZOLE SODIUM 40 MG TAB PO SCH (08:34)
[2018-06-09] MEDS: ASPIRIN 81 MG CHEWABLE TAB PO SCH (08:35)
[2018-06-09] MEDS: FUROSEMIDE 40 MG TAB PO SCH (08:35)
[2018-06-09] MEDS: PSYLLIUM METAMUCIL 1 PKT PO SCH (08:35)
[2018-06-09] MEDS ORDERED: ATORVASTATIN CALCIUM 40 MG TAB PO SCH (09:00)
--- NOTE | 2018-06-09 13:40 | PDIAF ---
- Diagnosis Code Status: Do Not Resuscitate - Medication Management Additional Medication Instructions: Currently no plans for chemotherapy until completes rehab and follow up with his oncologist. Discharge Medications: electronically signed and located in the Home Medication List. PICC Care - Routine: N/A - Orders Services needed: Physical Therapy, Occupational Therapy, Speech Language Pathologist Diet Texture: Regular Texture Diet, Thin Liquids, Meds Whole w/Liquids [place]: Not applicable Additional Instructions: Medication changes: 1. Stopped apixaban. 2. Started Lovenox injections 80mg twice daily. 3. Started aspirin 81mg daily. 4. Started Lipitor 40mg daily. - Follow Up Care Current Providers and Referrals: Richy Dalton MD [Primary Care Provider] - As per Instructions Richy Lantigua MD [Medical Doctor] - As per Instructions
--- NOTE | 2018-06-09 13:47 | PDDCSUM ---
Discharge Summary Discharge Summary: Date of Admission: 06/06/2018 Date of Discharge: 06/09/2018 Consultants: neurology, oncology Studies: CT head, MRI brain, CTA head/neck, TTE Disposition: inpatient rehab at [facility] Discharge Diagnoses: 1. 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 Acute metabolic encephalopathy, resolved 3. Chronic hypoxemia on 3L/min baseline 4. Metastatic esophageal cancer 5. Chronic anemia and thrombocytopenia 6. Recent DVT/PE 7. Valvular heart disease (AI, MR), compensated 8. GRACIELA on CPAP 9. Pulmonary nodules 10. Hiatal hernia Brief Hospital Course: 77yo M with metastatic esophageal cancer, DVT/PE on eliquis presented with acute onset difficulty speaking and confusion. The patient's found him sitting on side of bed at night without his oxygen on. His symptoms did not improve after putting his oxygen back on so he was brought to the ED. MRI of his brain showed multiple acute diffuse small cerebral and cerebellar ischemic infarcts. Neurology was consulted. He had the usual stroke work up. The etiology of his strokes is thought to be due to diffuse hypoxic injury vs multiple clots related to hypercoaguable state from his malignancy. Oncology was also consulted and an antiphospholipid panel is pending. He was switched from apixaban to lovenox. He was also started on aspirin and statin. He was having ongoing dysarthria and expressive aphasia as well as balance issues. PT, OT, and [employer] all recommend inpatient rehab and he was discharged there. Regarding his cancer, he had a recent outpatient scan that showed progression of his liver metastases despite treatment. Oncology recommends waiting until his stroke has calmed down before re-discussing treatment strategies/options moving forward. Medications: Please refer to EMR for complete list. Changes this admission include 1. Stopped apixaban 2. Started Lovenox 80mg BID 3. Started aspirin 81mg daily 4. Started atorvastatin 40mg daily Follow Up Plan: 1. Follow up with Dr Lantigua after rehab to discuss additional cancer therapy options Physical Exam: Vitals and telemetry reviewed, no atrial arrhythmias. Alert and oriented, slightly dysarthric with expressive aphasia, full strength in all extremities, sensation intact, CN 2-12 intact except for chronic left eye vision loss, rrr with systolic murmur, lungs clear, abdomen soft, no leg edema or JVD.
--- NOTE | 2018-06-09 14:54 | ASMTLACE ---
LACE Length of stay for Answers: 3 days current admission Acuity / Level of Answers: No Care: Did the patient have an inpatient admission? Comorbidities - select Answers: Any tumor (including all that apply lymphoma or leukemia) Other Notes: Esophageal cancer w/ metastatic dx, DVT/PE, pancytopeni a, pulmonary nodules, neuropathy, OS A # of Emergency department Answers: 1-2 visits in the last 6 months Score: 7 Date Signed: 06/09/2018 02:53 PM Electronically Signed By:BEN Cristobal
--- NOTE | 2018-06-09 14:56 | ASMTCMCOM ---
CM Note CM Note Notes: Pt medically stable for d/c to [facility] inpatient rehab. Pt agrees to pay [employer] for transport at 1600. BASILIO June to call report. Orders to be obtained via [employer]. Voicemail left for pt Funmilayo. Pt will not have cancer treatment while in rehab Date Signed: 06/09/2018 02:55 PM Electronically Signed By:BEN Cristobal
[2018-06-09 16:34] VITALS: BP 110/74
--- NOTE | 2018-06-10 09:11 | ASDISCHSUM ---
Discharge Information Plan Status:Inpatient Rehab Medically Cleared to Leave: Discharge Date:06/09/2018 04:30 PM CM D/C Disposition: ADT D/C Disposition:[facility] IP Projected Discharge Date:06/10/2018 11:00 AM Transportation at D/C: Discharge Delay Reason: Follow-Up Date:06/10/2018 11:00 AM Discharge Slot: Final Diagnosis: Placement Information Referral Type:Acute Care Referral ID:[id number] Provider Name:[facility] Address 1:[address] Phone Number: Address 2: Fax Number: [facility]:[place] Selection Factors: State:[place] Patient Contact Information Contact Name:SHANNA Relationship: Address:[address] Work Phone: [facility] Phone: State/Zip Code:[place] [address] Email: Financial Information Financial Class:Medicare Primary Plan Desc:MEDICARE INPATIENT Primary Plan Number:[id number] Secondary Plan Desc:[employer] Secondary Plan Number:[id number] Assessment Information LACE LACE Length of stay for Answers: 3 days current admission Acuity / Level of Answers: No Care: Did the patient have an inpatient admission? Comorbidities - select Answers: Any tumor (including all that apply lymphoma or leukemia) Other Notes: Esophageal cancer w/ metastatic dx, DVT/PE, pancytopeni a, pulmonary nodules, neuropathy, OS A # of Emergency department Answers: 1-2 visits in the last 6 months Score: 7 Date Signed: 06/09/2018 02:53 PM Electronically Signed By:BEN Cristobal [facility] CM Progress Note CM Note CM Note Notes: Reviewed chart. Pt presented to the Emergency Department with confusion and difficulty speaking. History includes esophageal cancer with metastatic disease to the liver and lymph nodes, DVT/PE, pancytopenia, hiatal hernia, pulmonary nodules, neuropathy, and GRACIELA. Pt is . He is accompanied by his and son. Pt to be admitted for further evaluation and treatment. Discharge needs remain unclear at this time. CM will continue to follow. Discharge Plan: To be determined Date Signed: 06/06/2018 01:25 PM Electronically Signed By:Silvia Garcia RN [facility] CM Progress Note CM Note CM Note Notes: PT recommending inpatient rehab. Left ms for Michaela and sent referral via [employer]. IR order in chart. CM will continue to follow. D/C plan: TBD Date Signed: 06/07/2018 03:35 PM Electronically Signed By:BEN Abreu [facility] CM Progress Note CM Note CM Note Notes: Pt medically stable for d/c to [facility] inpatient rehab. Pt agrees to pay [employer] for transport at 1600. BASILIO June to call report. Orders to be obtained via [employer]. Voicemail left for pt Funmilayo. Pt will not have cancer treatment while in rehab Date Signed: 06/09/2018 02:55 PM Electronically Signed By:BEN Cristobal Intervention Information
--- NOTE | 2018-06-11 08:41 | CPEKG ---
Test Reason : OPEN Blood Pressure : / mmHG Vent. Rate : 059 BPM Atrial Rate : 060 BPM P-R Int : 211 ms QRS Dur : 106 ms QT Int : 445 ms P-R-T Axes : 032 -33 -14 degrees QTc Int : 441 ms Sinus rhythm Atrial premature complex Left axis deviation Borderline T abnormalities, inferior leads similar changes were noted on prior ECG Confirmed by Hal Medina ([id number]) on 06/11/2018 8:40:59 AM Referred By: Lucian Ball Confirmed By:Hal Medina
== END 2018-06-09 16:30 | DRG 64 ==
LOC: F3N 12:51 → OBSVTOIN 06-07 13:20
PROVIDERS: ADMIT Internal Medicine; ATTEND Internal Medicine
DX: I63.9 Cerebral infarction, unspecified (principal); G93.41 Metabolic encephalopathy; J96.11 Chronic respiratory failure with hypoxia; C15.9 Malignant neoplasm of esophagus, unspecified; C78.7 Secondary malignant neoplasm of liver and intrahepatic bile duct; D64.9 Anemia, unspecified; R47.01 Aphasia; R47.1 Dysarthria and anarthria; D69.6 Thrombocytopenia, unspecified; R91.1 Solitary pulmonary nodule; K44.9 Diaphragmatic hernia without obstruction or gangrene; G47.33 Obstructive sleep apnea (adult) (pediatric); Z66 Do not resuscitate; Z86.711 Personal history of pulmonary embolism; Z86.718 Personal history of other venous thrombosis and embolism; Z87.891 Personal history of nicotine dependence
CPT/HCPCS: 82435-PO; 82565-PO; 82947-PO; 84132-PO; 84295-PO; 84520-PO; 85014-ER; 86147-90; 92507-GN; 92523-GN; 92526-GN; 92610-GN; 97110-GP; 97116-GP; 97162-GP; 97166-GO; 97530-GP; 97535-GO; A9585; G0378; G0515-GO; J1650; Q9967

== ENCOUNTER 2018-06-09 16:32 | Inpatient (IN) | payer OTHER ==
--- NOTE | 2018-06-09 18:09 | GHP ---
[f rep st] HISTORY AND PHYSICAL POST ADMISSION PHYSICIAN EVALUATION AND REHABILITATION TREATMENT PLAN DATE OF ADMISSION: 06/09/2018 DATE OF EVALUATION: 06/09/2018. TIME OF EVALUATION: 1655. REFERRING FACILITY: [facility]. REFERRING PHYSICIAN: Lucian Ball MD IMPAIRMENT GROUP: 1.3. DATE OF ONSET: 06/06/2018. CONSULTING PHYSICIANS: He was seen in consultation by Oncology, Dr. Lassiter, and Neurology, Dr. Fuentes. REHABILITATION DIAGNOSIS: Debility and dysarthria, status post cerebrovascular accident. ETIOLOGIC DIAGNOSIS: Bilateral involvement. HISTORY OF PRESENT ILLNESS: This patient was admitted to [facility] on 06/06/2018, with acute dysarthria, expressive aphasia and confusion. He has a history of metastatic esophageal cancer, and DVT and pulmonary embolus for which he was treated with apixaban. He was evaluated with a head and neck CT angiogram and brain MRI. The CT scanning ruled out hemorrhage and did not show any vascular blockage. MRI showed bilateral multifocal cerebral and cerebellar infarcts, most prominently in the left parietal and occipital lobes. There was suspicion for a diffuse hypoxic injury. Further evaluation with echocardiogram showed severe mitral and aortic regurgitation, but no intracardiac shunting and no cardiac thrombus. Labs and studies showed an LDL of 115 and he was started on atorvastatin. Apixaban was discontinued and he was started on aspirin and enoxaparin. He was otherwise medically stable, participating in therapies and appropriate for rehabilitation. STUDIES AND LABS DURING HIS STAY: Renal function and electrolytes were normal. Hemoglobin A1c was 5.5. Liver function tests were normal. Ammonia was undetectable. Troponin was mildly elevated at 0.148 and this decreased to 0.126. CBC showed anemia and this was stable through his stay. On the day of discharge, hemoglobin was 12.2 and hematocrit was 35.6. He had thrombocytopenia which improved during his stay and on the day of discharge, platelet count was 124. Coagulation studies to rule out antiphospholipid antibodies syndrome are pending. EKG showed left axis deviation and normal sinus rhythm. PRECAUTIONS: He is a fall risk. ACTIVE COMORBIDITIES: He has no active tier 1, tier 2 or tier 3 comorbidities. PAST MEDICAL HISTORY: 1. Esophageal cancer with prominent metastatic disease to the liver. 2. DVT/PE 12/2017. 3. Pancytopenia. 4. Hiatal hernia. 5. Pulmonary nodules. 6. Neuropathy. 7. Obstructive sleep apnea. 8. 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 9. BPH. 10. GERD. 11. Valvular CHF. PAST SURGICAL HISTORY: He has had a tonsillectomy and reattachment of a detached retina. MEDICATIONS PRIOR TO ADMISSION: 1. Esomeprazole 20 mg p.o. daily. 2. Tamsulosin 0.8 mg p.o. daily. 3. PreserVision 1 p.o. b.i.d. 4. Apixaban 5 mg p.o. b.i.d. ADMISSION MEDICATIONS: 1. Aspirin 81 mg p.o. daily. 2. Atorvastatin 40 mg p.o. daily. 3. Enoxaparin 80 mg subcutaneous b.i.d. 4. Esomeprazole 20 mg p.o. daily. 5. Furosemide 40 mg p.o. every other day. 6. PreserVision 1 p.o. b.i.d. 7. Psyllium husk 3.4 g powder mixed in water daily. 8. Tamsulosin 0.8 mg p.o. q.h.s. ALLERGIES: There are no known drug allergies. PSYCHOSOCIAL HISTORY: He is . He lives with his . His son also lives in the home in a lower level. 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 He is a former smoker and he has a history of alcohol use. There are 2 steps to enter the home. FAMILY HISTORY: Noncontributory. REVIEW OF SYSTEMS: He reports loss of vision in his left eye. He is not aware of any acute weakness. He is aware of difficulty with language. He denies headache or pain otherwise. He denies loss of sensation. He denies chest pain or palpitations. He denies cough or dyspnea. Denies nausea, vomiting, constipation, or diarrhea. Denies dysuria or urinary frequency. He denies joint pain or joint swelling. He is aware of approximately a 30-pound weight loss over several months. He reports he has been able to continue to be active and says he built a greenhouse in his yard last summer and is still active with gardening. He is able to participate in testing analyst and prior to his stroke, he was independent in mobility and activities of daily living. Otherwise, a 10-point review of systems is negative. PHYSICAL EXAM: VITALS: Not yet available this afternoon. Earlier today in the hospital his blood pressure was 110/74, heart rate was 68, respiratory rate was 14, oxygen saturation was 94% on 2 L, temperature was 36.6 degrees centigrade. His weight is 81.6 kg for a body mass index of 24.4. GENERAL: This is an overweight appearing man, dressed in street clothes, sitting in a wheelchair, cooperative and in no acute distress. HEENT: Extraocular movements are intact on the right eye and the left eye is tonically deviated laterally. It appears to come to center when he closes his eyes and deviates laterally when he opens his eyes. Mucous membranes are moist. Dentition is in good condition. He has a crowded airway, Mallampati class 4. NECK: Supple. HEART: There is a regular rate and rhythm. There is a 2/6 systolic murmur heard at the left sternal border. LUNGS: Clear to auscultation bilaterally. ABDOMEN: Soft, nontender, nondistended with normoactive bowel sounds and no hepatosplenomegaly. EXTREMITIES: There is no cyanosis, clubbing or edema. NEUROLOGIC: He is alert and oriented x3. He has expressive aphasia. It is easy for him to speak familiar phrases, but he has paraphasias and word substitutions and word-finding difficulty with anything beyond simple speech. He appears to have good comprehension. Cranial nerves 2-12 are grossly intact, but for ocular movements on the left eye. He does not appear to have focal weakness. Sensation is intact to light touch. Deep tendon reflexes are globally hypoactive. CURRENT LEVEL OF FUNCTION: Per the preadmission screen, he was on a regular texture with thin liquids. Grooming required setup to standby assist with voice cues. He had decreased depth perception and difficulty placing grooming items on the left. Dressing upper body required setup and lower body required setup with contact guard and voice cues. Toileting required minimal assist for clothing management and contact guard for transfers. He was continent of bowel and bladder. Bed mobility required standby assist. Transfers were done with contact guard and voice cues. Standing balance required contact guard to minimal assist and seated balance required standby assist. Endurance was fair. He was able to ambulate 150 feet with minimal assist and a front-wheeled walker using 3 L of oxygen. Regarding communication and cognition, he was noted to have mild to moderate receptive aphasia and expressive aphasia. On today's exam, he appears to have improvement in his aphasia, specifically receptive. Otherwise, there are no significant changes from the preadmission screen. IMPRESSION: This is a 77-year-old man with a history of metastatic esophageal cancer and deep vein thrombosis/pulmonary embolism, who had multiple cortical bilateral emboli to the cerebellum and cerebrum, most prominently in the left parietal and occipital lobes. These were considered embolic versus due to watershed infarcts from hypoxemia. Hospital evaluation ruled out any major vessel blockages or hemorrhage. Echocardiogram did not show an embolic source. He had an elevated LDL and has been started on atorvastatin. Due to suspicion for multiple thromboemboli, apixaban was discontinued and he was begun on enoxaparin and aspirin. He has had improvement in his ability to communicate and is medically stable and ready for inpatient rehabilitation. His goal is to complete a rehabilitation stay and then return home with his family and supportive services. For a safe discharge, he will need to achieve modified independence for grooming, dressing and bed mobility, transfers and toileting. He may require supervision or assistance with dressing and bathing. He will need to ambulate with the least restrictive device on level and unlevel surfaces for household distances and he may require the use of a wheelchair for longer distances. He will need to demonstrate insight into his cognitive and functional deficits and use appropriate compensatory strategies to safely negotiate his environment. He will have therapy with physical therapy, occupational therapy, and speech and language pathology for 60 minutes per day on 5 to 7 days of the week for each discipline. His expected duration of stay is 10-14 days. It is expected that upon discharge, he will continue to benefit from home health services including nursing, speech and language pathology, a nurse's aide , occupational therapy, and physical therapy. Additionally, he will benefit from a stroke support group. PLAN: 1. Multifocal cerebral vascular accident with impaired mobility and ADLs and with moderate expressive aphasia and possibly receptive aphasia as well. PT and OT to optimize mobility and activities of daily living. 2. Dysphagia evaluation and management per Speech and Language Pathology. 3. Secondary prevention of CVA, continue atorvastatin, aspirin and enoxaparin. 4. Metastatic esophageal cancer with liver metastasis and significant weight loss. He reports 30 pounds. Chart review documents greater than 25 kg, if weights are accurate, since December of 2017, prior to his stroke. With a palliative performance scale score of 70%, it is yet to be seen if he will have a significant decline in the palliative performance measure. He has recent evidence of progression of liver metastases on his palliative FOLFOX regimen. He will meet with oncologist, Dr. Lantigua, after his discharge to consider his treatment options. If he has a significant decline in his function, it portends worse prognosis, though he has survived 8 years with esophageal cancer which is a long survival. Despite his multiple liver metastases he has normal liver function tests. 5. Compensated valvular heart disease. Continue furosemide 40 mg q.2 days. 6. Benign prostatic hyperplasia. Continue tamsulosin 0.8 mg at bedtime. 7. Gastroesophageal reflux disorder. Continue esomeprazole 20 mg p.o. daily. 8. Obstructive sleep apnea, normally managed on BiPAP. He reports that his is having his BiPAP repaired and will bring it in. If not, we will consult Respiratory Therapy tomorrow to ensure that he has treatment for his obstructive sleep apnea while he is on the rehabilitation unit. 9. Prophylaxis. Continue enoxaparin and aspirin which will also be very effective for DVT prophylaxis. Esomeprazole, which is prescribed for GERD, will also provide gastric protection against ulceration. 10. Followup. Primary care provider is Richy Dalton. He will follow up with his primary oncologist, Dr. Richy Lantigua, as well after his discharge. /[id number]/MODL and [id number]/[facility]L [facility]
[2018-06-09] MEDS ORDERED: ACETAMINOPHEN 325 MG TAB PO PRN (18:13)
[2018-06-09] MEDS: TAMSULOSIN HCL 0.4 MG CAP PO SCH (19:57)
[2018-06-09] MEDS: PRESERVISION AREDS2 FORMULA EYE VIT 1 EACH PO SCH (19:58)
[2018-06-09] MEDS: ENOXAPARIN 80 MG/0.8 ML SYR SC SCH (19:58)
[2018-06-10] MEDS: ENOXAPARIN 80 MG/0.8 ML SYR SC SCH ×2 (05:56→20:03)
[2018-06-10] MEDS: PRESERVISION AREDS2 FORMULA EYE VIT 1 EACH PO SCH ×2 (08:05→17:41)
[2018-06-10] MEDS: FUROSEMIDE 40 MG TAB PO SCH (08:05)
[2018-06-10] MEDS: ASPIRIN 81 MG CHEWABLE TAB PO SCH (08:06)
[2018-06-10] MEDS: PANTOPRAZOLE SODIUM 40 MG TAB PO SCH (08:06)
[2018-06-10] MEDS: PSYLLIUM METAMUCIL 1 PKT PO SCH (08:06)
[2018-06-10] MEDS ORDERED: ATORVASTATIN CALCIUM 40 MG TAB PO SCH (09:00)
--- NOTE | 2018-06-10 10:47 | SOAPPROG ---
SOAP Progress Note Assessment/Plan: Assessment: Multifocal cerebral vascular accident with impaired mobility and ADLs and with moderate expressive aphasia and possibly receptive aphasia as well. PT and OT to optimize mobility and activities of daily living. Aphagia evaluation and management per Speech and Language Pathology. Secondary prevention of CVA, continue atorvastatin, aspirin and enoxaparin. Metastatic esophageal cancer with liver metastasis and significant weight loss. He reports 30 pounds. Chart review documents greater than 25 kg since December of 2017, if weights are accurate. Palliative performance scale score was 70% prior to his stroke. It is yet to be seen if he will have a significant decline in the palliative performance measure, which would portend poor prognosis. He has recent evidence of progression of liver metastases on his palliative FOLFOX regimen. He will meet with oncologist, Dr. Lantigua, after his discharge to consider his treatment options. Compensated valvular heart disease. Continue furosemide 40 mg q.2 days. Benign prostatic hyperplasia. Continue tamsulosin 0.8 mg at bedtime. Gastroesophageal reflux disorder. Continue esomeprazole 20 mg p.o. daily. Obstructive sleep apnea, normally managed on BiPAP. He reports that his is having his BiPAP repaired and will bring it in. If not, we will consult Respiratory Therapy tomorrow to ensure that he has treatment for his obstructive sleep apnea while he is on the rehabilitation unit. Prophylaxis. Continue enoxaparin and aspirin which will also be very effective for DVT prophylaxis. Esomeprazole, which is prescribed for GERD, will also provide gastric protection against ulceration. Followup. Primary care provider is Richy Dalton. He will follow up with his primary oncologist, Dr. Richy Lantigua, as well after his discharge. 06/10/18 12:40 Subjective: No complaints. Slept well. It feels that he is benefitting from therapies. Not in pain. No cough or dyspnea, no fevers or chills. Objective: Vital Signs Temp Pulse Resp BP Pulse Ox 36.3 C 77 16 113/78 93 06/10/18 06:42 06/10/18 06:42 06/10/18 06:42 06/10/18 06:42 06/10/18 06:42 06/09/18 06/10/18 06/11/18 05:59 05:59 05:59 Intake Total 257 410 Output Total 600 450 Balance -343 -40 Physical Exam - Physical Exam General Appearance: WD/WN, alert, no apparent distress Respiratory: normal breath sounds, No crackles, No rhonchi, No wheezing Cardiac/Chest: regular rate, rhythm, No edema, No diastolic murmur, No systolic murmur Skin: normal color, warm/dry Neuro/Psych: alert, normal mood/affect, speech abnormalities (Normal speech with simple social interactions. Paraphasias and word-finding difficulty with more complex speech.) ICD10 Worksheet Patient Problems: Problems Problem Status Onset Altered mental status Acute Dysarthria Acute Esophageal cancer, stage IV Acute Pulmonary embolism Acute
--- NOTE | 2018-06-10 16:40 | PDOREHIP ---
Admission [facility] - Admission - 3 Day Assessment Period Admission Date/Day 1: 06/09/18 Day 2: 06/10/18 Day 3: 06/11/18 - Active Diagnoses Comorbidities and Co-existing Conditions at Admission: 62439. None of the Above - Skin Conditions Unhealed Pressure Ulcer (1 or more/Stage 1 or >)-Admission: 0. No # Stage 1 Pressure Ulcers-Admission: 0 # Stage 2 Pressure Ulcers-Admission: 0 # Stage 3 Pressure Ulcers-Admission: 0 # Stage 4 Pressure Ulcers-Admission: 0 # Unstageable Pressure Ulcers (Non-remove Dress)-Admission: 0 # Unstageable Pressure Ulcers (Slough/Eschar)-Admission: 0 # Unstageable Pressure Ulcers (Deep Tissue Injury)-Admission: 0
[2018-06-10] MEDS: ATORVASTATIN CALCIUM 40 MG TAB PO SCH (20:03)
[2018-06-10] MEDS: TAMSULOSIN HCL 0.4 MG CAP PO SCH (20:03)
[2018-06-11] MEDS: PSYLLIUM METAMUCIL 1 PKT PO SCH (07:42)
[2018-06-11] MEDS: FUROSEMIDE 40 MG TAB PO SCH (07:43)
[2018-06-11] MEDS: ENOXAPARIN 80 MG/0.8 ML SYR SC SCH ×2 (07:43→20:25)
[2018-06-11] MEDS: ASPIRIN 81 MG CHEWABLE TAB PO SCH (07:43)
[2018-06-11] MEDS: PANTOPRAZOLE SODIUM 40 MG TAB PO SCH (07:44)
[2018-06-11] MEDS: PRESERVISION AREDS2 FORMULA EYE VIT 1 EACH PO SCH ×2 (07:44→18:30)
--- NOTE | 2018-06-11 20:13 | SOAPPROG ---
SOAP Progress Note Assessment/Plan: Assessment: Multifocal cerebral vascular accident with impaired mobility and ADLs and with moderate expressive aphasia and possibly receptive aphasia as well. * Initial functional independence measure is 85 on 06/11/2018. SBA bed mobility , CGA for transfers, walked 150 - 200' CGA, no device.Climbed and descended 6 stairs with 1 rail, CGA, [id number] patter,. Avery 39/56, TUG 16 sec, both indicating fall risk.SBA for ADLs. * Continue PT and OT to optimize mobility and activities of daily living. Aphasia. * Moderate to sever expressive, Also has memory impariment and mild dysarthria. * Continue Speech and Language Pathology. Secondary prevention of CVA, continue atorvastatin, aspirin and enoxaparin. Metastatic esophageal cancer with liver metastasis and significant weight loss. He reports 30 pounds. Chart review documents greater than 25 kg since December of 2017, if weights are accurate. Palliative performance scale score was 70% prior to his stroke. It is yet to be seen if he will have a significant decline in the palliative performance measure, which would portend poor prognosis. He has recent evidence of progression of liver metastases on his palliative FOLFOX regimen. He will meet with oncologist, Dr. Lantigua, after his discharge to consider his treatment options. Compensated valvular heart disease. Continue furosemide 40 mg q.2 days. Benign prostatic hyperplasia. Continue tamsulosin 0.8 mg at bedtime. Gastroesophageal reflux disorder. Continue esomeprazole 20 mg p.o. daily. Obstructive sleep apnea, normally managed on BiPAP. He reports that his is having his BiPAP repaired and will bring it in. Not yet there as of 06/11/2018. Prophylaxis. Continue enoxaparin and aspirin which will also be very effective for DVT prophylaxis. Esomeprazole, which is prescribed for GERD, will also provide gastric protection against ulceration. DISPOSITION: Attended staffing, 15 min. D/W case management, appliance service technician, pharmacist, nurse, PT, OT, VISITING TEACHER. Needs to ambulate safely on uneven outdoor surfaces. Will discharge home with family. Discharge date set for 06/18/2018. Will have home PT, OT and VISITING TEACHER. Followup. Primary care provider is Richy Dalton. He will follow up with his primary oncologist, Dr. Richy Lantigua, as well after his discharge. 06/11/18 20:03 Subjective: No complaints. Denies fevers, chills, cough, dyspnea, pain. Objective: Vital Signs Temp Pulse Resp BP Pulse Ox 36.5 C 52 L 16 106/76 92 06/11/18 06:28 06/11/18 06:28 06/11/18 06:28 06/11/18 06:28 06/11/18 06:28 06/10/18 06/11/18 06/12/18 05:59 05:59 05:59 Intake Total 257 1260 150 Output Total 600 1800 350 Balance -343 -540 -200 - Time Spent With Patient Time Spent With Patient: Greater than 35 minutes floor time today, including more than 50% of time in coordination of care during staffing meeting, and counseling patient. Physical Exam - Physical Exam General Appearance: WD/WN, alert, no apparent distress Respiratory: No respiratory distress, No accessory muscle use Skin: normal color, warm/dry Neuro/Psych: alert, normal mood/affect, oriented x 3, aphasia (Expressive) ICD10 Worksheet Patient Problems: Problems Problem Status Onset Altered mental status Acute Dysarthria Acute Esophageal cancer, stage IV Acute Pulmonary embolism Acute
[2018-06-11] MEDS: TAMSULOSIN HCL 0.4 MG CAP PO SCH (20:24)
[2018-06-11] MEDS: ATORVASTATIN CALCIUM 40 MG TAB PO SCH (20:25)
[2018-06-12] MEDS: PRESERVISION AREDS2 FORMULA EYE VIT 1 EACH PO SCH ×2 (07:53→17:25)
[2018-06-12] MEDS: ENOXAPARIN 80 MG/0.8 ML SYR SC SCH ×2 (07:53→20:10)
[2018-06-12] MEDS: PSYLLIUM METAMUCIL 1 PKT PO SCH (08:27)
[2018-06-12] MEDS: ASPIRIN 81 MG CHEWABLE TAB PO SCH (08:28)
[2018-06-12] MEDS: PANTOPRAZOLE SODIUM 40 MG TAB PO SCH (08:28)
--- NOTE | 2018-06-12 09:22 | SOAPPROG ---
[facility] Progress Note Assessment/Plan: 77-year-old male status post multifocal stroke on 06/06/2018 with impaired mobility and ADLs with aphasia, premorbid metastatic esophageal cancer. Today's update: Patient endorses that therapy is going well, making progress regarding his aphasia, feels that speech therapy in particular is going well. 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 He was previously on warfarin per his report, currently on treatment dose Lovenox. At this point, it is most likely that he will discharge home on a anticoagulant of some sort, unclear if he will discharge on treatment dose of Lovenox or return to oral anticoagulant. Plan to discuss further with Dr. Snow and potentially his oncologist as well. Plan to continue the rehabilitation plan of care, continue to monitor medical issues. Additional medical issues reviewed without change today include secondary stroke prevention, metastatic esophageal cancer treatment, compensated valvular heart disease, benign prostatic hyperplasia, GERD, obstructive sleep apnea. A total of 25 min was spent on the floor in the care of the patient, majority of which was spent in counseling coordination of care regarding anticoagulation management. 06/12/18 09:15 Subjective: Chief complaint: Rehab progress No acute events overnight. Patient denies any new shortness of breath or chest pain, no new numbness, tingling, or weakness. He continues to have some numbness in his hands and feet from polyneuropathy, no associated pain, no changes. He feels that his aphasia is getting better and feels that speech therapy has been very very helpful in this regard. He is looking forward to Oncology appointment on the . He also notes his history of recent DVT/PE in December 2017 for which she was on oral anticoagulants, and thought it was warfarin, prior to admission to the hospital. He is currently on treatment dose of Lovenox. No barriers to therapy per his report. Objective: Vital Signs Temp Pulse Resp BP Pulse Ox 36.6 C 66 16 121/68 H 95 06/12/18 06:17 06/12/18 06:17 06/12/18 06:17 06/12/18 06:17 06/12/18 06:17 06/11/18 06/12/18 06/13/18 05:59 05:59 05:59 Intake Total 1260 400 550 Output Total 1800 1050 200 Balance -540 -650 350 Physical Exam - Physical Exam General Appearance: WD/WN, alert, no apparent distress EENT: No scleral icterus (R), No scleral icterus (L) Respiratory: lungs clear, normal breath sounds, No respiratory distress, No accessory muscle use, No decreased breath sounds, No rales, No rhonchi, No wheezing, No pleural rub Cardiac/Chest: normal peripheral pulses, regular rate, rhythm, No edema Skin: normal color, warm/dry, No cyanosis, No diaphoresis Extremities: No pedal edema, No swelling Neuro/Psych: alert, normal mood/affect, speech abnormalities (Dysarthria) ICD10 Worksheet Patient Problems: Problems Problem Status Onset Altered mental status Acute Dysarthria Acute Esophageal cancer, stage IV Acute Pulmonary embolism Acute
[2018-06-12] MEDS: ATORVASTATIN CALCIUM 40 MG TAB PO SCH (20:10)
[2018-06-12] MEDS: TAMSULOSIN HCL 0.4 MG CAP PO SCH (20:10)
[2018-06-13] MEDS: PSYLLIUM METAMUCIL 1 PKT PO SCH (08:39)
[2018-06-13] MEDS: PRESERVISION AREDS2 FORMULA EYE VIT 1 EACH PO SCH ×2 (08:40→18:20)
[2018-06-13] MEDS: PANTOPRAZOLE SODIUM 40 MG TAB PO SCH (08:41)
[2018-06-13] MEDS: ASPIRIN 81 MG CHEWABLE TAB PO SCH (08:41)
[2018-06-13] MEDS: FUROSEMIDE 40 MG TAB PO SCH (08:41)
[2018-06-13] MEDS: ENOXAPARIN 80 MG/0.8 ML SYR SC SCH ×2 (09:39→21:42)
--- NOTE | 2018-06-13 14:06 | SOAPPROG ---
SOAP Progress Note Assessment/Plan: Assessment: Multifocal cerebral vascular accident with impaired mobility and ADLs and with moderate expressive aphasia and possibly receptive aphasia as well. * Initial functional independence measure is 85 on 06/11/2018. SBA bed mobility , CGA for transfers, walked 150 - 200' CGA, no device.Climbed and descended 6 stairs with 1 rail, CGA, [id number] patter,. Avery 39/56, TUG 16 sec, both indicating fall risk.SBA for ADLs. * Continue PT and OT to optimize mobility and activities of daily living. Aphasia. * Moderate to severe expressive, Also has memory impairment and mild dysarthria. * Continue Speech and Language Pathology. Secondary prevention of CVA, continue atorvastatin, aspirin and enoxaparin. Metastatic esophageal cancer with liver metastasis and significant weight loss. He reports 30 pounds. Chart review documents greater than 25 kg since December of 2017, if weights are accurate. Palliative performance scale score was 70% prior to his stroke. It is yet to be seen if he will have a significant decline in the palliative performance measure, which would portend poor prognosis. He has recent evidence of progression of liver metastases on his palliative FOLFOX regimen. He will meet with oncologist, Dr. Lantigua, after his discharge to consider his treatment options. Compensated valvular heart disease. Continue furosemide 40 mg q.2 days. Benign prostatic hyperplasia. Continue tamsulosin 0.8 mg at bedtime. Gastroesophageal reflux disorder. Continue esomeprazole 20 mg p.o. daily. Obstructive sleep apnea, normally managed on BiPAP. He reports that his is having his BiPAP repaired and will bring it in. Nursing to contact his to determine status. Consider using CPAP mask on the unit with consultation with respiratory therapy. Prophylaxis. Continue enoxaparin and aspirin which will also be very effective for DVT prophylaxis. Esomeprazole, which is prescribed for GERD, will also provide gastric protection against ulceration. DISPOSITION: Needs to ambulate safely on uneven outdoor surfaces. Will discharge home with family. Discharge date set for 06/18/2018. Will have home PT, OT and DIPLOMA MEDICAL ASSISTANT. Followup. Primary care provider is Richy Dalton. He will follow up with his primary oncologist, Dr. Richy Lantigua, as well after his discharge. 06/13/18 14:17 Subjective: No complaints. Particulate largely appreciative of the progress he is making with speech pathology. Sleeping well, not in pain, no fevers or chills, no cough or dyspnea. Objective: Vital Signs Temp Pulse Resp BP Pulse Ox 36.7 C 62 16 119/72 95 06/13/18 06:42 06/13/18 06:42 06/13/18 06:42 06/13/18 06:42 06/13/18 06:42 06/12/18 06/13/18 06/14/18 05:59 05:59 05:59 Intake Total 400 1315 1390 Output Total 1050 1050 Balance -938 113 5084 Physical Exam - Physical Exam General Appearance: WD/WN, alert, no apparent distress Respiratory: normal breath sounds, No crackles, No rhonchi, No wheezing Cardiac/Chest: regular rate, rhythm, No diastolic murmur, No systolic murmur Skin: normal color, warm/dry Neuro/Psych: alert, normal mood/affect, oriented x 3, aphasia (Expressive) ICD10 Worksheet Patient Problems: Problems Problem Status Onset Altered mental status Acute Dysarthria Acute Esophageal cancer, stage IV Acute Pulmonary embolism Acute
[2018-06-13] MEDS: ATORVASTATIN CALCIUM 40 MG TAB PO SCH (21:42)
[2018-06-13] MEDS: TAMSULOSIN HCL 0.4 MG CAP PO SCH (21:42)
[2018-06-14] MEDS: PRESERVISION AREDS2 FORMULA EYE VIT 1 EACH PO SCH ×2 (08:55→17:16)
[2018-06-14] MEDS: PANTOPRAZOLE SODIUM 40 MG TAB PO SCH (08:55)
[2018-06-14] MEDS: FUROSEMIDE 40 MG TAB PO SCH (08:55)
[2018-06-14] MEDS: ENOXAPARIN 80 MG/0.8 ML SYR SC SCH ×2 (08:55→20:08)
[2018-06-14] MEDS: ASPIRIN 81 MG CHEWABLE TAB PO SCH (08:55)
[2018-06-14] MEDS: PSYLLIUM METAMUCIL 1 PKT PO SCH (08:56)
--- NOTE | 2018-06-14 11:52 | HOSPPROG ---
Hospitalist Progress Note Assessment/Plan: Multifocal cerebral vascular accident with impaired mobility and ADLs and with moderate expressive aphasia and possibly receptive aphasia as well. * Initial functional independence measure is 85 on 06/11/2018. SBA bed mobility , CGA for transfers, walked 150 - 200' CGA, no device.Climbed and descended 6 stairs with 1 rail, CGA, [id number] patter,. Avery 39/56, TUG 16 sec, both indicating fall risk.SBA for ADLs. * Continue PT and OT to optimize mobility and activities of daily living. Aphasia. * Moderate to severe expressive, Also has memory impairment and mild dysarthria. * Continue Speech and Language Pathology. Secondary prevention of CVA, continue atorvastatin, aspirin and enoxaparin. Metastatic esophageal cancer with liver metastasis and significant weight loss. He reports 30 pounds. Chart review documents greater than 25 kg since December of 2017, if weights are accurate. Palliative performance scale score was 70% prior to his stroke. It is yet to be seen if he will have a significant decline in the palliative performance measure, which would portend poor prognosis. He has recent evidence of progression of liver metastases on his palliative FOLFOX regimen. He will meet with oncologist, Dr. Lantigua, after his discharge to consider his treatment options. Compensated valvular heart disease. Continue furosemide 40 mg q.2 days. Benign prostatic hyperplasia. Continue tamsulosin 0.8 mg at bedtime. Gastroesophageal reflux disorder. Continue esomeprazole 20 mg p.o. daily. Obstructive sleep apnea, normally managed on BiPAP. He reports that his is having his BiPAP repaired and will bring it in. Nursing to contact his to determine status. Consider using CPAP mask on the unit with consultation with respiratory therapy. Prophylaxis. Continue enoxaparin and aspirin which will also be very effective for DVT prophylaxis. Esomeprazole, which is prescribed for GERD, will also provide gastric protection against ulceration. DISPOSITION: Needs to ambulate safely on uneven outdoor surfaces. Will discharge home with family. Discharge date set for 06/18/2018. Will have home PT, OT and STUDY ABROAD ADVISOR. Subjective: no new complaints. doing well Objective: Vital Signs Temp Pulse Resp BP Pulse Ox 36.7 C 73 16 117/76 93 06/14/18 06:04 06/14/18 06:04 06/14/18 06:04 06/14/18 06:04 06/14/18 06:04 06/13/18 06/14/18 06/15/18 05:59 05:59 05:59 Intake Total 1315 2065 Output Total 1050 200 Balance 265 1865 - Physical Exam Constitutional: no apparent distress, appears nourished, not in pain Eyes: anicteric sclera, EOMI Ears, Nose, Mouth, Throat: moist mucous membranes Cardiovascular: regular rate and rhythym Respiratory: no respiratory distress, no rales or rhonchi, clear to auscultation Gastrointestinal: normoactive bowel sounds, soft, non-tender abdomen, no palpable masses Skin: warm Neurologic: AAOx3 ICD10 Worksheet Patient Problems: Problems Problem Status Onset Altered mental status Acute Dysarthria Acute Esophageal cancer, stage IV Acute Pulmonary embolism Acute
[2018-06-14] MEDS: TAMSULOSIN HCL 0.4 MG CAP PO SCH (20:08)
[2018-06-14] MEDS: ATORVASTATIN CALCIUM 40 MG TAB PO SCH (20:09)
[2018-06-15] MEDS: PSYLLIUM METAMUCIL 1 PKT PO SCH (08:45)
[2018-06-15] MEDS: ENOXAPARIN 80 MG/0.8 ML SYR SC SCH ×2 (08:45→19:31)
[2018-06-15] MEDS: PRESERVISION AREDS2 FORMULA EYE VIT 1 EACH PO SCH ×2 (08:45→17:30)
[2018-06-15] MEDS: ASPIRIN 81 MG CHEWABLE TAB PO SCH (08:46)
[2018-06-15] MEDS: PANTOPRAZOLE SODIUM 40 MG TAB PO SCH (08:46)
--- NOTE | 2018-06-15 12:18 | HOSPPROG ---
Hospitalist Progress Note Assessment/Plan: Multifocal cerebral vascular accident with impaired mobility and ADLs and with moderate expressive aphasia and possibly receptive aphasia as well. * Initial functional independence measure is 85 on 06/11/2018. SBA bed mobility , CGA for transfers, walked 150 - 200' CGA, no device.Climbed and descended 6 stairs with 1 rail, CGA, [id number] patter,. Avery 39/56, TUG 16 sec, both indicating fall risk.SBA for ADLs. * Continue PT and OT to optimize mobility and activities of daily living. Aphasia. * Moderate to severe expressive, Also has memory impairment and mild dysarthria. * Continue Speech and Language Pathology. Secondary prevention of CVA, continue atorvastatin, aspirin and enoxaparin. Metastatic esophageal cancer with liver metastasis and significant weight loss. He reports 30 pounds. Chart review documents greater than 25 kg since December of 2017, if weights are accurate. Palliative performance scale score was 70% prior to his stroke. It is yet to be seen if he will have a significant decline in the palliative performance measure, which would portend poor prognosis. He has recent evidence of progression of liver metastases on his palliative FOLFOX regimen. He will meet with oncologist, Dr. Lantigua, after his discharge to consider his treatment options. Compensated valvular heart disease. Continue furosemide 40 mg q.2 days. Benign prostatic hyperplasia. Continue tamsulosin 0.8 mg at bedtime. Gastroesophageal reflux disorder. Continue esomeprazole 20 mg p.o. daily. Obstructive sleep apnea, normally managed on BiPAP. He reports that his is having his BiPAP repaired and will bring it in. Nursing to contact his to determine status. Consider using CPAP mask on the unit with consultation with respiratory therapy. Prophylaxis. Continue enoxaparin and aspirin which will also be very effective for DVT prophylaxis. Esomeprazole, which is prescribed for GERD, will also provide gastric protection against ulceration. DISPOSITION: Needs to ambulate safely on uneven outdoor surfaces. Will discharge home with family. Discharge date set for 06/18/2018. Will have home PT, OT and COUGAR HUNTER. Subjective: no new complaints Objective: Vital Signs Temp Pulse Resp BP Pulse Ox 36.7 C 66 16 127/77 H 92 06/15/18 06:33 06/15/18 06:33 06/15/18 06:33 06/15/18 06:33 06/15/18 06:33 06/14/18 06/15/18 06/16/18 05:59 05:59 05:59 Intake Total 5 400 Output Total 200 Balance 1865 400 - Physical Exam Constitutional: no apparent distress, appears nourished, not in pain Eyes: anicteric sclera, EOMI Ears, Nose, Mouth, Throat: moist mucous membranes Cardiovascular: regular rate and rhythym Respiratory: no respiratory distress Skin: warm Neurologic: AAOx3 Psychiatric: interacting appropriately, not anxious, not encephalopathic, thought process linear ICD10 Worksheet Patient Problems: Problems Problem Status Onset Altered mental status Acute Dysarthria Acute Esophageal cancer, stage IV Acute Pulmonary embolism Acute
[2018-06-15] MEDS: TAMSULOSIN HCL 0.4 MG CAP PO SCH (19:30)
[2018-06-15] MEDS: ATORVASTATIN CALCIUM 40 MG TAB PO SCH (19:31)
[2018-06-16] MEDS: ENOXAPARIN 80 MG/0.8 ML SYR SC SCH ×2 (07:55→20:13)
[2018-06-16] MEDS: PANTOPRAZOLE SODIUM 40 MG TAB PO SCH (07:55)
[2018-06-16] MEDS: PSYLLIUM METAMUCIL 1 PKT PO SCH (07:56)
[2018-06-16] MEDS: ASPIRIN 81 MG CHEWABLE TAB PO SCH (07:56)
[2018-06-16] MEDS: PRESERVISION AREDS2 FORMULA EYE VIT 1 EACH PO SCH ×2 (07:56→18:11)
--- NOTE | 2018-06-16 09:53 | SOAPPROG ---
SOAP Progress Note Assessment/Plan: Assessment: Multifocal cerebral vascular accident with impaired mobility and ADLs and with moderate expressive aphasia and possibly receptive aphasia as well. * Initial functional independence measure is 85 on 06/11/2018. SBA bed mobility , CGA for transfers, walked 150 - 200' CGA, no device.Climbed and descended 6 stairs with 1 rail, CGA, [id number] patter,. Avery 39/56, TUG 16 sec, both indicating fall risk. SBA for ADLs. * Continue PT and OT to optimize mobility and activities of daily living. Aphasia. * Moderate to severe expressive, Also has memory impairment and mild dysarthria. * Continue Speech and Language Pathology. Secondary prevention of CVA, continue atorvastatin, aspirin and enoxaparin. Metastatic esophageal cancer with liver metastasis and significant weight loss. He reports 30 pounds. Chart review documents greater than 25 kg since December of 2017, if weights are accurate. Palliative performance scale score was 70% prior to his stroke. It is yet to be seen if he will have a significant decline in the palliative performance measure, which would portend poor prognosis. He has recent evidence of progression of liver metastases on his palliative FOLFOX regimen. He will meet with oncologist, Dr. Lantigua, after his discharge to consider his treatment options. * He was weighed on 06/14/2018 and his weight corresponds to a 3 kg weight loss since early last year. Unclear which weight is correct. Will order repeat weight. Compensated valvular heart disease. Continue furosemide 40 mg q.2 days. Benign prostatic hyperplasia. Continue tamsulosin 0.8 mg at bedtime. Gastroesophageal reflux disorder. Continue esomeprazole 20 mg p.o. daily. Obstructive sleep apnea, normally managed on BiPAP. He reports that his is having his BiPAP repaired and will bring it in. Nursing to contact his to determine status. Consider using CPAP mask on the unit with consultation with respiratory therapy. Prophylaxis. Continue enoxaparin and aspirin which will also be very effective for DVT prophylaxis. Esomeprazole, which is prescribed for GERD, will also provide gastric protection against ulceration. DISPOSITION: Needs to ambulate safely on uneven outdoor surfaces. Will discharge home with family. Discharge date set for 06/18/2018. Will have home PT, OT and MAORI LIAISON ADVISER. Followup. Primary care provider is Richy Dalton. He will follow up with his primary oncologist, Dr. Richy Lantigua, as well after his discharge. 06/16/18 12:56 Subjective: No complaints. Sleeping well. Not in pain. Appreciates the assistance he has from MAORI LIAISON ADVISER regarding speech and language. Objective: Vital Signs Temp Pulse Resp BP Pulse Ox 36.8 C 73 16 117/83 H 92 06/16/18 06:25 06/16/18 06:25 06/16/18 06:25 06/16/18 06:25 06/16/18 08:24 06/15/18 06/16/18 06/17/18 05:59 05:59 05:59 Intake Total 400 1560 Balance 400 1560 Physical Exam - Physical Exam General Appearance: WD/WN, alert, no apparent distress Respiratory: normal breath sounds, No crackles, No rhonchi, No wheezing Cardiac/Chest: regular rate, rhythm, No edema, No diastolic murmur, No systolic murmur Skin: normal color, warm/dry Neuro/Psych: alert, normal mood/affect, oriented x 3, aphasia (Expressive) ICD10 Worksheet Patient Problems: Problems Problem Status Onset Altered mental status Acute Dysarthria Acute Esophageal cancer, stage IV Acute Pulmonary embolism Acute
[2018-06-16] MEDS: FUROSEMIDE 40 MG TAB PO SCH (13:06)
[2018-06-16] MEDS: ATORVASTATIN CALCIUM 40 MG TAB PO SCH (20:13)
[2018-06-16] MEDS: TAMSULOSIN HCL 0.4 MG CAP PO SCH (20:13)
[2018-06-17] MEDS: PRESERVISION AREDS2 FORMULA EYE VIT 1 EACH PO SCH ×2 (08:16→17:09)
[2018-06-17] MEDS: ASPIRIN 81 MG CHEWABLE TAB PO SCH (08:16)
[2018-06-17] MEDS: ENOXAPARIN 80 MG/0.8 ML SYR SC SCH ×2 (08:17→20:00)
[2018-06-17] MEDS: PANTOPRAZOLE SODIUM 40 MG TAB PO SCH (08:17)
[2018-06-17] MEDS: PSYLLIUM METAMUCIL 1 PKT PO SCH (08:17)
--- NOTE | 2018-06-17 14:17 | SOAPPROG ---
SOAP Progress Note Assessment/Plan: Assessment: Multifocal cerebral vascular accident with impaired mobility and ADLs and with moderate expressive aphasia and possibly receptive aphasia as well. * Initial functional independence measure is 85 on 06/11/2018. SBA bed mobility , CGA for transfers, walked 150 - 200' CGA, no device.Climbed and descended 6 stairs with 1 rail, CGA, [id number] patter,. Avery 39/56, TUG 16 sec, both indicating fall risk. SBA for ADLs. * Has progressed to independent in his room 7:00 a.m. To 7:00 p.m. * Continue PT and OT to optimize mobility and activities of daily living. Aphasia. * Moderate to severe expressive, Also has memory impairment and mild dysarthria. * Continue Speech and Language Pathology. Secondary prevention of CVA, continue atorvastatin, aspirin and enoxaparin. Metastatic esophageal cancer with liver metastasis and significant weight loss. He reports 30 pounds. Palliative performance scale score was 70% prior to his stroke. It is yet to be seen if he will have a significant decline in the palliative performance measure, which would portend poor prognosis. He has recent evidence of progression of liver metastases on his palliative FOLFOX regimen. He will meet with oncologist, Dr. Lantigua, after his discharge to consider his treatment options. Compensated valvular heart disease. Continue furosemide 40 mg q.2 days. Benign prostatic hyperplasia. Continue tamsulosin 0.8 mg at bedtime. Gastroesophageal reflux disorder. Continue esomeprazole 20 mg p.o. daily. Obstructive sleep apnea, normally managed on BiPAP. BiPAP has been repaired, reported by to nursing. He will resume BiPAP after his discharge home. Prophylaxis. Continue enoxaparin and aspirin which will also be very effective for DVT prophylaxis. Esomeprazole, which is prescribed for GERD, will also provide gastric protection against ulceration. DISPOSITION: Needs to ambulate safely on uneven outdoor surfaces. Will discharge home with family. Discharge date set for 06/18/2018. Will have outpatient PT, OT and MAINTENANCE CONTROLLER. Advised to have pre driving screen per outpatient OT if he intends to return to driving. Followup. Primary care provider is Richy Dalton. He will follow up with his primary oncologist, Dr. Richy Lantigua, as well after his discharge. 06/17/18 14:14 Subjective: No complaints. Feels ready to go home tomorrow. No cough or dyspnea, no fevers or chills. Objective: Vital Signs Temp Pulse Resp BP Pulse Ox 36.8 C 82 17 112/77 92 06/17/18 06:17 06/17/18 06:17 06/17/18 06:17 06/17/18 06:17 06/17/18 06:17 06/16/18 06/17/18 06/18/18 05:59 05:59 05:59 Intake Total 3028 045 2515 Balance 8389 367 2060 Physical Exam - Physical Exam General Appearance: WD/WN, alert, no apparent distress Respiratory: normal breath sounds, No crackles, No rhonchi, No wheezing Cardiac/Chest: normal peripheral pulses, No edema, No diastolic murmur, No systolic murmur Skin: normal color, warm/dry Neuro/Psych: alert, normal mood/affect, oriented x 3, aphasia (Expressive) ICD10 Worksheet Patient Problems: Problems Problem Status Onset Altered mental status Acute Dysarthria Acute Esophageal cancer, stage IV Acute Pulmonary embolism Acute
--- NOTE | 2018-06-17 14:21 | PDOREHIP ---
Admission [facility] - Admission - 3 Day Assessment Period Admission Date/Day 1: 06/09/18 Day 2: 06/10/18 Day 3: 06/11/18 - Active Diagnoses Comorbidities and Co-existing Conditions at Admission: [id number]. None of the Above Discharge [facility] - Discharge - 3 Day Assessment Period 2 Days Prior to Anticipated Discharge Date: 06/16/18 1 Day Prior to Anticipated Discharge Date: 06/17/18 Anticipated Discharge Date: 06/18/18 - Discharge Skin Conditions Unhealed Pressure Ulcer (1 or more/Stage 1 or >)-Discharge: 0. No # Stage 1 Pressure Ulcers-Discharge: 0 # Stage 2 Pressure Ulcers-Discharge: 0 # of These Stage 2 Pressure Ulcers Present on Admission: 0 # Stage 3 Pressure Ulcers-Discharge: 0 # of These Stage 3 Pressure Ulcers Present on Admission: 0 # Stage 4 Pressure Ulcers-Discharge: 0 # of These Stage 4 Pressure Ulcers Present on Admission: 0 # Unstageable Pressure Ulcers (Non-remove Dress)-Discharge: 0 # These Unstageable Pressure Ulcers (NRD)-Present on Admit: 0 # Unstageable Pressure Ulcers (Slough/Eschar)-Discharge: 0 # These Unstageable Pressure Ulcers(Slough) Present on Admit: 0 # Unstageable Pressure Ulcers (Deep Tissue Injury)-Discharge: 0 # These Unstageable Pressure Ulcers (DTI) Present on Admit: 0
[2018-06-17] MEDS: ATORVASTATIN CALCIUM 40 MG TAB PO SCH (20:00)
[2018-06-17] MEDS: TAMSULOSIN HCL 0.4 MG CAP PO SCH (20:00)
[2018-06-18 07:30] VITALS: BP 111/73
[2018-06-18] MEDS: PANTOPRAZOLE SODIUM 40 MG TAB PO SCH (08:09)
[2018-06-18] MEDS: FUROSEMIDE 40 MG TAB PO SCH (08:09)
[2018-06-18] MEDS: ASPIRIN 81 MG CHEWABLE TAB PO SCH (08:09)
[2018-06-18] MEDS: PSYLLIUM METAMUCIL 1 PKT PO SCH (08:09)
[2018-06-18] MEDS: PRESERVISION AREDS2 FORMULA EYE VIT 1 EACH PO SCH (08:09)
--- NOTE | 2018-06-18 10:25 | GDS ---
[f rep st] DISCHARGE SUMMARY ADMISSION DIAGNOSIS: Cerebrovascular accident, multifocal, with dysarthria and expressive aphasia. DISCHARGE DIAGNOSIS: Cerebrovascular accident, multifocal, with dysarthria and expressive aphasia. OTHER DISCHARGE DIAGNOSES: 1. Esophageal cancer. 2. Compensated valvular heart disease. 3. Hypoxia and obstructive sleep apnea. COMPLICATIONS: There were none. CONSULTATIONS: There were none. PROCEDURES: There were none. HISTORY AND HOSPITAL COURSE: This patient came to inpatient rehabilitation from [facility]. He had presented there on 10/2018, with dysarthria, expressive aphasia and confusion. The brain imaging showed multifocal cerebellar and cerebral infarcts most prominently in the left parietal and occipital lobes. Further evaluation did not find an embolic source. Echocardiogram showed severe mitral and aortic valve regurgitation. The stroke happened while he was under treatment with apixaban for a history of a DVT and pulmonary embolus in December of 2017. The stroke was considered a failure of apixaban therapy, so he was changed to aspirin 81 mg daily and enoxaparin 80 mg subcutaneous b.i.d. He was also started on atorvastatin. He did well in rehabilitation. He recovered mobility very well and was advanced to independent in his room from 7 a.m. to 7 p.m. He had continued improvement in his expressive aphasia, as well as dysarthria. On the day before discharge, he was able to complete a category naming task at a basic/ concrete level. He was able to list 3 items for each category with cues 10% of the time. He continued to have some paraphasic errors. He had improvement in his memory and was able to recall and follow basic daily instructions. He had 90% accuracy for card recall following delay and distraction. He continued to have difficulty with basic problem solving, and his written language was as impaired as his spoken language was. Valvular heart disease was compensated. Chronic hypoxia was stable. He needed oxygen occasionally during the day and often at night. He was hypoxic to 88% overnight on the day before discharge. He was continued on furosemide at 40 mg every other day. His home BiPAP machine needed repair and during his rehabilitation stay, his had it repaired. He will continue BiPAP at home, as well as oxygen. DISCHARGE PLAN: 1. Disposition is home with his family. 2. Condition is good. 3. Diet is regular. 4. Activity: Mobility is ad devan. 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 MEDICATIONS ON DISCHARGE: 1. Atorvastatin 40 mg p.o. daily. 2. Enoxaparin 80 mg subcutaneous b.i.d. and this should continue lifelong. 3. Esomeprazole 20 mg p.o. daily. 4. Furosemide 40 mg every other day. 5. Tamsulosin 0.8 mg p.o. q.h.s. ISSUES TO BE ADDRESSED AT FOLLOWUP: 1. Mobility, ADLs and communication. 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 He can follow up with his primary care provider regarding his progress. 2. Metastatic esophageal cancer. There was progression on FOLFOX prior to his admission. He will follow up with Oncology. 3. Hypoxia with GRACIELA and history of pulmonary embolus. He will continue his home oxygen, as well as BiPAP. Greater than 30 minutes were spent on this discharge including medication reconciliation, coordination of care and counseling of patient. /[id number]/MODL MTDD
[2018-06-18] MEDS: ENOXAPARIN 80 MG/0.8 ML SYR SC SCH (12:19)
== END 2018-06-18 13:05 | disposition home or self-care (01) | DRG 57 ==
LOC: BREH 16:45
PROVIDERS: ADMIT Internal Medicine Hospice and Palliative Medicine; ATTEND Internal Medicine Hospice and Palliative Medicine
PROC: F08Z7ZZ Vocational Activities and Functional Community or Work Reintegration Skills Treatment (ICD-10-PCS; principal; 2018-06-09)
PROC: F0636ZZ Communicative/Cognitive Integration Skills Treatment of Neurological System - Whole Body (ICD-10-PCS; principal; 2018-06-09)
PROC: F07M3ZZ Motor Function Treatment of Musculoskeletal System - Whole Body (ICD-10-PCS; principal; 2018-06-09)
DX: I69.320 Aphasia following cerebral infarction (principal); C78.7 Secondary malignant neoplasm of liver and intrahepatic bile duct; Z85.01 Personal history of malignant neoplasm of esophagus; Z86.711 Personal history of pulmonary embolism; Z86.718 Personal history of other venous thrombosis and embolism; Z79.01 Long term (current) use of anticoagulants; K21.9 Gastro-esophageal reflux disease without esophagitis; K44.9 Diaphragmatic hernia without obstruction or gangrene; G62.9 Polyneuropathy, unspecified; G47.33 Obstructive sleep apnea (adult) (pediatric); N40.0 Benign prostatic hyperplasia without lower urinary tract symptoms; I38 Endocarditis, valve unspecified; H54.62 Unqualified visual loss, left eye, normal vision right eye; Z87.891 Personal history of nicotine dependence
CPT/HCPCS: 92507-GN; 92523-GN; 97110-GO; 97110-GP; 97112-GP; 97116-GP; 97161-GP; 97165-GO; 97530-GO; 97530-GP; 97535-GO; G0515-GO; J1650

== ENCOUNTER → 2018-07-04 | Outpatient (CLI) | payer OTHER | LOC: FIMAGING 12:00 | PROVIDERS: ATTEND Nurse Practitioner | DX: I82.B11 Acute embolism and thrombosis of right subclavian vein (principal) ==

== ENCOUNTER 2018-07-15 08:17 | Inpatient (IN) | payer OTHER ==
[2018-07-15] MEDS ORDERED: NS 1,000 ML IV ONE (08:19)
--- NOTE | 2018-07-15 08:40 | EDPHY ---
H & P Time Seen by Provider: 07/15/18 08:19 HPI/ROS: Chief complaint. Abdominal pain, altered mental status HPI. 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 He had an MRI June 17 which showed evidence of CVA. He has had gradually progressive weakness. He has had increased confusion. He has had mid abdominal pain and nausea. Confusion manifest as opening of an looking for thing clothing and things in the oven. Trying to open a door where it is just a wall and there is no door. He is wondering outside. His says she can't handle him anymore and had been trying to keep him at home as long as possible. He has had no fever. Has no chest pain or shortness of breath. Recently had a DVT right arm and is receiving Lovenox injections. No trauma or injury ROS 10 systems were reviewed and negative with the exception of the elements mentioned in the history of present illness Past Medical/Surgical History: Past medical history is significant for CVA, encephalopathy, chronic hypoxia, esophageal cancer with mets to the liver, CVA Social History: , nonsmoker, no alcohol Smoking Status: Former smoker Physical Exam: General Appearance: Alert well-developed male stable vital signs moderate distress Eyes: Pupils equal and round no pallor or injection. ENT, Mouth: Mucous membranes are moist. Respiratory: There are no retractions, lungs are clear to auscultation. Cardiovascular: Regular rate and rhythm. Gastrointestinal: Abdomen is soft with mid abdominal tenderness. No masses. Normal bowel sounds Neurological: Awake and alert, sensory and motor exams grossly normal. Skin: Warm and dry, no rashes. Musculoskeletal: Neck is supple nontender. Extremities symmetrical, full range of motion. Psychiatric: Patient is oriented X 2--does not know date or time but does know location and name, there is no agitation. Constitutional: Initial Vital Signs Temperature (C) 37 C 07/15/18 08:23 Heart Rate 85 07/15/18 08:23 Respiratory Rate 16 07/15/18 08:23 Blood Pressure 161/90 H 07/15/18 08:23 O2 Sat (%) 96 07/15/18 08:23 O2 Delivery Mode Nasal Cannula O2 (L/minute) 4 Allergies/Adverse Reactions: No Known Allergies Allergy (Verified 06/06/18 07:24) Home Medications: Medication Instructions Recorded Aspirin [Aspirin 81mg (*)] 81 mg PO DAILY tab.chew 06/09/18 Atorvastatin Calcium [Lipitor 40 40 mg PO DAILY #30 tab 06/17/18 mg (*)] C/E/Zn/Cu/OM3/DHA/EPA/LUT/ZEAX 1 each PO DAILY 07/15/18 [Preservision Areds 2 Softgel] Enoxaparin [Lovenox 120 MG (*)] 120 mg SQ DAILY 07/15/18 Enoxaparin [Lovenox 80 MG (*)] 80 mg SC HS 07/15/18 Tamsulosin HCl [Flomax 0.4 MG (*)] 0.8 mg PO BID 07/15/18 oxyCODONE IR [Oxycodone Ir (*)] 5 mg PO Q3-4PRN PRN 07/15/18 Medical Decision Making - Diagnostics EKG Interpretation: EKG interpreted by me shows normal sinus rhythm with normal interval. Left axis deviation and left bundle branch block. QRS is otherwise normal with mild interventricular conduction delay. No significant ST elevation or depression. No arrhythmia. The rate is 80 Imaging Results: Imaging Impressions Abdomen CT 07/15/18 08:55 Impression: 1. Worsening diffuse hepatic metastases. 2. Moderate hiatal hernia. 3. Linear atelectasis bilateral lower lobes with minimal right pleural effusion. 4. Minimal ascites. 5. Mild constipation without bowel obstruction. 6. Multiple new hepatic metastasis as well as a pancreatic head metastasis. Findings and recommendations discussed with Emergency Department physician, Richy Parkinson, at 10:30 hours, 07/15/2018. Final report concurs with initial preliminary interpretation. Head CT 07/15/18 08:55 Impression: 1. Evolving bilateral frontoparietal cortical infarcts. 2. No acute hemorrhage, hydrocephalus, or mass effect. 3. Cerebrovascular atherosclerosis. 4. No definite acute infarct. 5. Mild cerebral atrophy and mild microvascular ischemic gliosis. 6. Consider MRI of the brain, if there is continued clinical concern for cerebral metastasis or acute infarct. Findings and recommendations discussed with Emergency Department physician, Richy Parkinson, at 1030 hours, 07/15/2018. Final report concurs with initial preliminary interpretation. Head CT shows no evidence of hemorrhage Abdominal CT shows worsening hepatic metastasis. No evidence for acute abdomen Procedures: IV normal saline monitor ED Course/Re-evaluation: Re-evaluation patient is stable. Patient, his , and I discussed imaging and lab results. We discussed treatment plan including recommendation for admission. They expressed understanding and agreement I consulted discussed case with Dr. Sanches, hospitalist, who agrees to the admission I also consulted discussed case with Dr. Lantigua patient's oncologist who will see the patient in the hospital Differential Diagnosis: I have considered encephalopathy, passes to the brain, cranial hemorrhage as he on blood thinners. Considered worsening metastatic esophageal disease. Patient 's is having a difficult time managing the patient at home - Data Points Laboratory Results: Laboratory Results 07/15/18 09:00 07/15/18 09:00 07/15/18 07/15/18 07/15/18 09:55 09:00 09:00 WBC RBC Hgb Hct MCV MCH MCHC RDW Plt Count MPV Neut % (Auto) Lymph % (Auto) Gates % (Auto) Eos % (Auto) Baso % (Auto) Nucleat RBC Rel Count Absolute Neuts (auto) Absolute Lymphs (auto) Absolute Monos (auto) Absolute Eos (auto) Absolute Basos (auto) Absolute Nucleated RBC Immature Gran % Immature Gran # RBC/WBC/PLT Morphology Platelet Estimate PT 14.1 SEC SEC (12.0-15.0) INR 1.14 (0.83-1.16) APTT 31.7 SEC SEC (23.0-38.0) Sodium Potassium Chloride Carbon Dioxide Anion Gap BUN Creatinine Estimated GFR Glucose Calcium Total Bilirubin Conjugated Bilirubin Unconjugated Bilirubin AST ALT Alkaline Phosphatase Ammonia < 9.0 uMOL/L L uMOL/L (9.0-30.0) Total Protein Albumin Lipase Urine Color MOLLY Urine Appearance CLEAR Urine pH 5.0 (5.0-7.5) Ur Specific [place] 1.025 (1.002-1.030) Urine Protein NEGATIVE (NEGATIVE) Urine Ketones NEGATIVE (NEGATIVE) Urine Blood NEGATIVE (NEGATIVE) Urine Nitrate NEGATIVE (NEGATIVE) Urine Bilirubin NEGATIVE (NEGATIVE) Urine Urobilinogen 4.0 EU H EU (0.2-1.0) Ur Leukocyte Esterase NEGATIVE (NEGATIVE) Urine RBC 1-3 /hpf /hpf (0-3) Urine WBC 1-3 /hpf /hpf (0-3) Ur Epithelial Cells NONE SEEN /lpf /lpf (NONE-1+) Urine Mucus 1+ /lpf /lpf (NONE-1+) Urine Glucose NEGATIVE (NEGATIVE) 04/16/19 04/16/19 09:00 09:00 WBC 10.15 10^3/uL H 10^3/uL (3.80-9.50) RBC 3.65 10^6/uL L 10^6/uL (4.40-6.38) Hgb 11.7 g/dL L g/dL (13.7-17.5) Hct 34.4 % L % (40.0-51.0) MCV 94.2 fL fL (81.5-99.8) MCH 32.1 pg pg (27.9-34.1) MCHC 34.0 g/dL g/dL (32.4-36.7) RDW 12.7 % % (11.5-15.2) Plt Count 196 10^3/uL 10^3/uL (150-400) MPV 9.9 fL fL (8.7-11.7) Neut % (Auto) 85.6 % H % (39.3-74.2) Lymph % (Auto) 4.5 % L % (15.0-45.0) Gates % (Auto) 8.5 % % (4.5-13.0) Eos % (Auto) 0.6 % % (0.6-7.6) Baso % (Auto) 0.3 % % (0.3-1.7) Nucleat RBC Rel Count 0.0 % % (0.0-0.2) Absolute Neuts (auto) 8.69 10^3/uL H 10^3/uL (1.70-6.50) Absolute Lymphs (auto) 0.46 10^3/uL L 10^3/uL (1.00-3.00) Absolute Monos (auto) 0.86 10^3/uL H 10^3/uL (0.30-0.80) Absolute Eos (auto) 0.06 10^3/uL 10^3/uL (0.03-0.40) Absolute Basos (auto) 0.03 10^3/uL 10^3/uL (0.02-0.10) Absolute Nucleated RBC 0.00 10^3/uL 10^3/uL (0-0.01) Immature Gran % 0.5 % % (0.0-1.1) Immature Gran # 0.05 10^3/uL 10^3/uL (0.00-0.10) RBC/WBC/PLT Morphology TNP Platelet Estimate TNP PT INR APTT Sodium 133 mEq/L L mEq/L (135-145) Potassium 4.0 mEq/L mEq/L (3.5-5.2) Chloride 99 mEq/L mEq/L (97-110) Carbon Dioxide 29 mEq/l mEq/l (22-31) Anion Gap 5 mEq/L L mEq/L (6-14) BUN 14 mg/dL mg/dL (7-23) Creatinine 0.8 mg/dL mg/dL (0.7-1.3) Estimated GFR > 60 Glucose 132 mg/dL H mg/dL (70-100) Calcium 8.2 mg/dL L mg/dL (8.5-10.4) Total Bilirubin 2.0 mg/dL H mg/dL (0.1-1.4) Conjugated Bilirubin 1.2 mg/dL H mg/dL (0.0-0.5) Unconjugated Bilirubin 0.8 mg/dL mg/dL (0.0-1.1) AST 144 IU/L H IU/L (17-59) ALT 120 IU/L H IU/L (21-72) Alkaline Phosphatase 348 IU/L H IU/L (38-126) Ammonia Total Protein 6.3 g/dL g/dL (6.3-8.2) Albumin 3.1 g/dL L g/dL (3.5-5.0) Lipase 113 IU/L IU/L (23-300) Urine Color Urine Appearance Urine pH Ur Specific [place] Urine Protein Urine Ketones Urine Blood Urine Nitrate Urine Bilirubin Urine Urobilinogen Ur Leukocyte Esterase Urine RBC Urine WBC Ur Epithelial Cells Urine Mucus Urine Glucose Medications Given: Discontinued Medications Sodium Chloride (Ns) 1,000 mls @ 0 mls/hr IV EDNOW ONE; Wide Open PRN Reason: Protocol Stop: 07/15/18 08:20 Last Admin: 07/15/18 08:52 Dose: 1,000 mls Promethazine HCl (Phenergan) 12.5 mg IVP EDNOW ONE Stop: 07/15/18 09:16 Last Admin: 07/15/18 09:18 Dose: 12.5 mg Departure - Departure Disposition: [facility] Acute Clinical Impression: Confusion Abdominal pain Qualifiers: Abdominal location: periumbilical Qualified Code(s): R10.33 - Periumbilical pain Esophageal cancer Qualifiers: Malignant neoplasm of esophagus location: unspecified location Qualified Code(s ): C15.9 - Malignant neoplasm of esophagus, unspecified Condition: Fair
[2018-07-15] MEDS ORDERED: PROMETHAZINE HCL 25 MG/ML INJ IVP ONE (09:15)
[2018-07-15 09:18] LABS: PLATELET COUNT 196 10^3/uL (150-400)
[2018-07-15 09:27] LABS: INR 1.14 (0.83-1.16); PROTIME(PATIENT) 14.1 SEC (12.0-15.0)
[2018-07-15] MEDS ORDERED: IOPAMIDOL (ISOVUE-300) 100 ML BTL ONE (09:51)
[2018-07-15] MEDS ORDERED: ACETAMINOPHEN 325 MG TAB PO PRN (12:46)
[2018-07-15] MEDS ORDERED: oxyCODONE IR 5 MG TAB PO PRN (12:46)
[2018-07-15] MEDS ORDERED: ONDANSETRON DISINTEGRATING 4 MG TAB PO PRN (12:46)
[2018-07-15] MEDS ORDERED: NS 1,000 ML IV SCH (13:00)
--- NOTE | 2018-07-15 14:42 | GHP ---
[f rep st] HISTORY AND PHYSICAL DATE OF ADMISSION: 07/15/2018 The patient is a pleasant 77-year-old gentleman with a history of recurrent metastatic esophageal can cer. He was recently in this hospital from June 06, through June 09. Workup at that time revea led multiple intracranial infarcts attributed to either hypercoagulable state or perhaps embolic phen omenon. At that time, he was transitioning from a novel oral anticoagulant to low molecular weight h eparin. He went to a rehab stay and did well. He returned home on June 18, and had been doing ok ay, but over the last 5 days, his has noted increased pain, confusion, wandering at night. At [facility], he is getting up and walking around trying to open doors that do not exist, opening the oven, p laying with his oxygen tubing. This is unusual behavior for him. When I speak with the patient, he says he has pain in his low back, his side, his ribs, his abdomen and everywhere. He has been eating okay. He has not had fever, chills, urgency, frequency, dysuria, nausea, vomiting, diarrhea. It so unds like he had a large bowel movement yesterday but has been struggling with constipation of late. He has not received chemotherapy since May of this year. He had been seeing Richy Lantigua, his [facility] oncologist; and it was revealed he did have at least 1 option for an oral chemotherapeutic age nt but his performance status is not clearly such that this is a good choice for him. His who i s organized in understanding of his situation and also provides the bulk of the history is of the [facility] ief that he may be near the end of his life and that hospice care is appropriate. She does affirm hi s do not resuscitate status. REVIEW OF SYSTEMS: Complete 10-point review of systems is conducted, negative except as noted in the HPI. PAST MEDICAL HISTORY: GRACIELA on CPAP, recurrent metastatic esophageal cancer, recent DVT and PE, hiatal hernia, BPH, recent bilateral cerebellar and cerebral ischemic CVAs, toxic metabolic encephalopathy. ALLERGIES: No known drug allergies. HOME MEDICATIONS: Aspirin, oxycodone, atorvastatin, enoxaparin, tamsulosin, PreserVision. 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 He lives up on [address]. His family is present at the bedside. FAMILY HISTORY: Parents . PHYSICAL EXAMINATION: VITAL SIGNS: Presenting vitals today, temperature 37, blood pressure 161/90, pulse 85, breathing 16 times a minute, 96% on 4 L. GENERAL: No acute distress. HEENT: Sclerae ani cteric. oropharynx clear. Mucous membranes are moist. NECK: Supple without lymphadenopathy or JVD . LUNGS: Clear to auscultation bilaterally. HEART: S1 and S2. ABDOMEN: Soft, nontender, nondist ended. EXTREMITIES: Lower extremities without edema. Calves are nontender. SKIN: Without rash. NEUROLOGIC: nonfocal. The patient is answering questions directly but is willing to let a conversat ion about the trajectory of his care, et cetera, go on around him without participating. LABORATORY DATA: White count is 10.2, hematocrit 34, platelets 196,000. Coags: INR is 1.14. Recen t lupus anticoagulant evaluation is negative. Sodium 133, potassium 4.0, chloride 99, bicarb 29, BUN 14, creatinine 0.8, glucose 132, bilirubin is 2 which is up from 1. It is largely conjugated, AST 144, ALT 120, alkaline phosphatase 348, ammonia isless than 9, lipase 113. Urinalysis is negative. EKG interpreted by me shows sinus at 81 with left axis deviation, borderline left bundle branch block pattern. A widened QRS with left axis deviation is present on previous admissions. Head CT shows an evolving bilateral intracranial infarct. No acute hemorrhage, no definite acute inf arct. Abdominal CT shows constipation, progression of underlying hepatic met, new pancreatic head metastasi s, minimal ascites, mild constipation without obstruction. I discussed the case with Dr. Richy loyola and Dr. Richy Lassiter. ASSESSMENT/PLAN: A 77-year-old gentleman with metastatic esophageal cancer who presents with encepha lopathy, constipation, and leukocytosis. 1. Encephalopathy. I think this is multifactorial. Certainly, his intracranial process may be at p lay. For the time being, I will complete a workup with a chest x-ray. Although it is not clear that anything is going on, it does not appear to be related to pain medicines. We will follow. 2. Esophageal cancer. This is progressive and has failed therapy versus not being eligible for ther apy. Oncology is going to see him to answer the question of any reasonable therapy. 3. Low back pain. I will perform an MRA lumbar spine to make sure he does not have a lesion that is in danger of pathologic fracture with resulting cord injury, relatively low suspicion for this. 4. Recent venous thromboembolism as well as ischemic infarctions. I will continue his Lovenox. At this point in time, there are not plans to reimage him. 5. Code status: Do not resuscitate. Hospice evaluation has been ordered. 6. Disposition, inpatient status. 7. Elevated liver Function tests. This is likely secondary to his known metastatic disease. This i s a new finding for him and probably is somewhat of an ominous sign. /[id number]/MODL
--- NOTE | 2018-07-15 15:54 | CPEKG ---
Test Reason : OPEN Blood Pressure : / mmHG Vent. Rate : 081 BPM Atrial Rate : 082 BPM P-R Int : 198 ms QRS Dur : 135 ms QT Int : 412 ms P-R-T Axes : -02 -54 -11 degrees QTc Int : 479 ms Sinus rhythm Left bundle branch block Confirmed by Winter Parkinson ([id number]) on 07/15/2018 3:54:14 PM Referred By: WINTER PARKNISON Confirmed By:Winter Parkinson
[2018-07-15] MEDS: ONDANSETRON 4 MG/2 ML VIAL IVP PRN (15:57)
--- NOTE | 2018-07-15 16:15 | ASMTCMCOM ---
CM Note CM Note Notes: Pt is a 77 yo M with history of metastatic esophageal cancer. Pt was last admitted from 06/09/18. Is followed by Dr. Newsome. [facility] in [facility] Discharge needs TBD. Plan: TBD Date Signed: 07/15/2018 04:15 PM Electronically Signed By:AFSHAN Lopez
--- NOTE | 2018-07-15 17:18 | GCON ---
[f rep st] CONSULTATION ONCOLOGY CONSULTATION DATE OF CONSULTATION: 07/15/2018 REASON FOR CONSULTATION: 1. Metastatic esophageal cancer. 2. Confusion due to multiple diffuse cortical brain infarctions. HISTORY OF PRESENT ILLNESS: The patient is a pleasant 77-year-old gentleman who is followed by my pa rtner, Dr. Richy Lantigua. The patient was diagnosed with a T2 N0 M1 esophageal adenocarcinoma in December of 2010. At the time of his initial diagnosis, he was found to have an area of isolated bony metastasis. He was treated initially with combined modality therapy (radiation and radiosensitizing weekly paclitaxel and carboplatin). He has had multiple palliative chemotherapy regimens since that time. Most recently, he was receiving palliative FOLFOX chemotherapy. His last cycle was given on May 20, 2018. A restaging CT chest, abdomen, pelvis done May 28 revealed progressive disease with increased hepatic metastasis The patient was hospitalized at [facility] in early May with confusion. 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 Given the patient's active maligna ncy, he was started on Lovenox and has been taking Lovenox ever since. Prior to this, he had been ta king Kenisha given a history of DVT, PE. The patient was most recently seen in the office by Dr. Lantigua on July 10. The patient did have foundation testing done on his most recent tumor biopsy specimen, which revealed a BRCA mutation. Th e option of a PARP inhibitor was discussed; however, the patient's performance status was felt to be too poor for therapy. It was hoped that the patient might improve from his recent CVA to the point t hat he could receive further palliative therapy. The patient [place] I was able to speak with the patient's by phone today. She has had increasing difficulty caring for the patient. H e has been increasingly confused. She brought him to the hospital with worsening confusion and felt that she was no longer able to adequately care for him at home. Upon presentation to the hospital, r epeat CT of the abdomen and pelvis was done, which showed further progression of his hepatic metastas is when compared to his May study. He had a new metastasis in the pancreatic body. A CT of the brain showed evolving bilateral cortical infarcts. PAST MEDICAL HISTORY: 1. Metastatic esophageal adenocarcinoma as outlined above. 2. History of retinal detachment, left eye. 3. Hypertension. 4. Obstructive sleep apnea. PAST SURGICAL HISTORY: Tonsillectomy age 9, left eye surgery. FAMILY MEDICAL HISTORY: Patient's sister of complications due to lupus. Patient's mother of an unknown blood disorder 1957. The patient's father at age 90 of unclear causes. SOCIAL HISTORY: The patient is . 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 He drinks a moderate amount of alcohol. He is a nonsmoker. REVIEW OF SYSTEMS: Somewhat difficult to obtain due the patient's confusion. He denies back pain at the current time. Denies chest pain or cough. Denies abdominal pain or bloating. Denies nausea or vomiting. Denies headache or visual change. PHYSICAL EXAM: GENERAL: Patient is sitting comfortably in a chair. He is in no acute distress. NE UROLOGIC: He is oriented to person and place. He cannot recall the year. He cannot recall the even ts of him getting to the hospital, nor specific details about his cancer diagnosis. His speech is fl uent. HEENT: Pupils are equal. No palpable cervical or supraclavicular adenopathy. HEART: Regula r without murmur. LUNGS: Clear bilaterally. No wheeze, rhonchi, or crackles. BACK: No flank tend erness. There is no area of reproducible tenderness with vigorous percussion over the cervical, thor acic, lumbar, or sacral spine. ABDOMEN: Obese. Exam is somewhat limited by body habitus. There is mild right upper quadrant tenderness with no guarding. No rebound. No hepatomegaly. No palpable a bdominal mass. Bowel sounds are normoactive. EXTREMITIES: The patient can move his upper and lower extremities without difficulty. SKIN: No visible skin rash. LABORATORY/IMAGING: CT results as outlined above. Sodium 133, potassium 4.0, chloride 99, bicarb 29, BUN 14, creatinine 0.8, calcium 8.2. Total biliru bin 2.0, AST 144, ALT 120, alkaline phosphatase 348. Ammonia level is less than 9. White count 10.1 , hemoglobin 11.7, hematocrit 34.4, platelet count is 196,000, absolute neutrophil count 8690. IMPRESSION: 1. Metastatic esophageal carcinoma with CT evidence of progressive disease involving liver and new a kiana of pancreatic involvement. 2. Multiple diffuse cortical infarcts (patient has been maintained on Lovenox). 3. Confusion, secondary to multiple diffuse cortical infarcts. 4. Back pain. The patient is a 77-year-old gentleman with a longstanding diagnosis of metastatic esophageal cancer with recent disease progression. He is currently not on active therapy. His recent course has been complicated by multiple diffuse central nervous system infarcts and resulting confusion. He has been maintained on Lovenox 100 mg b.i.d. I spoke with the patient's by phone this afternoon at length about the patient's condition. In the outpatient setting, Dr. Lantigua had discussed the option of a PARP inhibitor. The patient's clin ical status has continued to decline and his confusion has not improved, and his feels that it h as, in fact, worsened. She feels she is no longer able to adequately take care of him at home, which is understandable. We discussed the option of further palliative therapy in this patient. At this point, she feels his quality of life is poor and she would not want him to undergo further palliative therapy, which I think is certainly understandable in light of recent events. I also discussed this with the patient today who was unable to participate in any significant degree in terms of decision making and on multiple occasions deferred any decisions to his . Per my discussion with the patient's , we will involve Palliative Care/Hospice. The patient woul d be an appropriate candidate for hospice either to a nursing facility or inpatient Center. Per my d iscussion with his today, no further active treatment of his metastatic esophageal cancer is michele nned. I think it would be reasonable to continue him on Lovenox 1 mg/kg twice daily at the current [facility] given his history of multiple prior [employer] infarcts and the fact that his condition seems to have at least stabilized since starting Lovenox. Palliative Care consult is planned for tomorrow. Our service will continue to follow the patient during his hospital stay and I will notify Dr. Barrie elise of his admission. Total time for today's visit, including telephone conversation with the patient's was approximat hossein 50 minutes of which greater than 50% was spent in counseling and care coordination. /[id number]/MODL
[2018-07-15] MEDS: POLYETHYLENE GLYCOL 3350 17 GM PKT PO SCH ×2 (17:22→23:14)
[2018-07-15] MEDS ORDERED: LORazepam 2 MG/ML INJ IVP ONE ×3 (17:30→19:45)
[2018-07-15] MEDS ORDERED: ALTEPLASE 2 MG VIAL IVP ONE ×2 (17:35→23:45)
[2018-07-15] MEDS ORDERED: GADOBUTROL 10 ML VIAL IVP ONE (20:15)
[2018-07-15] MEDS ORDERED: ENOXAPARIN 80 MG/0.8 ML SYR SC SCH (21:00)
[2018-07-15] MEDS: TAMSULOSIN HCL 0.4 MG CAP PO SCH (23:13)
[2018-07-15] MEDS: oxyCODONE CR 15 MG TAB PO SCH (23:13)
[2018-07-15] MEDS: ENOXAPARIN 100 MG/ML SYR SC SCH (23:14)
[2018-07-16] MEDS ORDERED: ALTEPLASE 2 MG VIAL IVP ONE (03:57)
[2018-07-16 07:12] LABS: PLATELET COUNT 152 10^3/uL (150-400)
--- NOTE | 2018-07-16 08:34 | HOSPPROG ---
Hospitalist Progress Note Assessment/Plan: 77 yo M w metastatic esophageal CA here w confusion, FTT, back pain, uncontrolled pain and constipation esophageal CA: no chemo since 05/20 poor performance status no further treatment planned back pain: MRI w marrow replacement but no apparent instab ility pain: long acting pain meds added seems more comfortable this AM code: dnr encepahlopathy: toxic metabolic cxr w no infiltrate (interp by me) perhaps improved this AM constipation: tid miralax plan of care: hospice eval today VTE and ischemic infarcts in brain: treatment dose LMWH Subjective: case d/w dr moreno. sleeping well. has not moved bowels Objective: Vital Signs Temp Pulse Resp BP Pulse Ox 36.5 C 79 77 H 131/76 H 94 07/16/18 04:43 07/16/18 04:43 07/16/18 04:43 07/16/18 04:43 07/16/18 04:43 Laboratory Results 07/16/18 06:48 07/16/18 06:48 07/15/18 07/16/18 07/17/18 05:59 05:59 05:59 Intake Total 125 Balance 125 PT 14.1 SEC (12.0-15.0) 07/15/18 09:00 INR 1.14 (0.83-1.16) 07/15/18 09:00 - Physical Exam Constitutional: no apparent distress, appears nourished Eyes: PERRL, anicteric sclera Ears, Nose, Mouth, Throat: moist mucous membranes, hearing normal Cardiovascular: regular rate and rhythym, no murmur, rub, or gallop Respiratory: no respiratory distress, no rales or rhonchi Gastrointestinal: normoactive bowel sounds, soft, non-tender abdomen Genitourinary: no bladder fullness, No segundo in urethra Skin: warm, normal color Musculoskeletal: No full muscle strength Neurologic: No AAOx3 ICD10 Worksheet Patient Problems: Problems Problem Status Onset Abdominal pain Acute Confusion Acute Esophageal cancer Acute Altered mental status Acute Dysarthria Acute Esophageal cancer, stage IV Acute Pulmonary embolism Acute
[2018-07-16] MEDS ORDERED: ATORVASTATIN CALCIUM 40 MG TAB PO SCH (09:00)
[2018-07-16] MEDS ORDERED: ENOXAPARIN 120 MG/0.8 ML SYR SC SCH (09:00)
[2018-07-16] MEDS: PRESERVISION AREDS2 FORMULA EYE VIT 1 EACH PO SCH (09:46)
[2018-07-16] MEDS: TAMSULOSIN HCL 0.4 MG CAP PO SCH ×2 (09:46→22:21)
[2018-07-16] MEDS: ENOXAPARIN 100 MG/ML SYR SC SCH ×2 (09:46→22:22)
[2018-07-16] MEDS: oxyCODONE CR 15 MG TAB PO SCH ×2 (09:46→22:21)
[2018-07-16] MEDS: POLYETHYLENE GLYCOL 3350 17 GM PKT PO SCH ×3 (09:48→22:22)
--- NOTE | 2018-07-16 11:55 | PDMN ---
Medical Necessity Medical necessity: Pt meets IP criteria per & [facility] Medical Oncology; los >2 mn for eval/tx of encephalopathy, elevated liver function tests & low back pain; admit for further workup/monitoring & Oncology consult; hx recent hospitalization for CVA, recent DVT/PE, metastatic esophageal cancer; per H&P & order 07/15/18
--- NOTE | 2018-07-16 13:56 | ASMTCMCOM ---
CM Note CM Note Notes: Spoke with patient's Funmilayo about Hospice programs. She is interested in [facility] as they have the inpatient center if it is needed. A referral was sent to [facility] and they will meet with Funmilayo tomorrow at 12:30 to go over their services and answer her questions. CM will follow. Date Signed: 07/16/2018 01:55 PM Electronically Signed By:Sivan Christianson LCSW
--- NOTE | 2018-07-16 14:07 | SOAPPROG ---
SOAP Progress Note Assessment/Plan: Assessment: 1) Metastatic esophageal cancer with recent disease progression 2) Multifocal CVA with resulting confusion Plan: Patient and family are to meet with palliative care soon. Patient's Funmilayo plans to transition to Hospice care. Patient's confusion persists and he is not decisional at this point. No further active treatment of his malignancy is planned. MRI shows marrow infiltration from malignancy, but no evidence of disc collapse or cord compression. Case d/w 1 [facility] nursing staff 07/16/18 14:03 Subjective: Denies pain. Confusion unchanged. Sitting in chair Objective: Vital Signs Temp Pulse Resp BP Pulse Ox 36.8 C 90 16 119/62 92 07/16/18 12:12 07/16/18 12:12 07/16/18 12:12 07/16/18 12:12 07/16/18 12:12 Laboratory Results 07/16/18 06:48 07/16/18 06:48 07/15/18 07/16/18 07/17/18 05:59 05:59 05:59 Intake Total 125 Balance 125 PT 14.1 SEC (12.0-15.0) 07/15/18 09:00 INR 1.14 (0.83-1.16) 07/15/18 09:00 - Time Spent With Patient Time Spent With Patient: 15 minutes Physical Exam - Physical Exam General Appearance: alert, no apparent distress EENT: PERRL/EOMI Neuro/Psych: No oriented x 3 (Confusion persists. Unchanged from hospital admission) ICD10 Worksheet Patient Problems: Problems Problem Status Onset Pulmonary embolism Acute Dysarthria Acute Altered mental status Acute Esophageal cancer, stage IV Acute Abdominal pain Acute Confusion Acute Esophageal cancer Acute
[2018-07-17] MEDS ORDERED: ALTEPLASE 2 MG VIAL IVP ONE (00:50)
[2018-07-17] MEDS: POLYETHYLENE GLYCOL 3350 17 GM PKT PO SCH (08:51)
[2018-07-17] MEDS: TAMSULOSIN HCL 0.4 MG CAP PO SCH (08:52)
[2018-07-17] MEDS: oxyCODONE CR 15 MG TAB PO SCH (08:52)
[2018-07-17] MEDS: PRESERVISION AREDS2 FORMULA EYE VIT 1 EACH PO SCH (08:52)
[2018-07-17] MEDS: ENOXAPARIN 100 MG/ML SYR SC SCH (08:55)
[2018-07-17] MEDS ORDERED: MAGNESIUM CITRATE 300 ML BOTTLE PO ONE (09:09)
--- NOTE | 2018-07-17 09:11 | HOSPPROG ---
Hospitalist Progress Note Assessment/Plan: 77 yo M w metastatic esophageal CA here w confusion, FTT, back pain, uncontrolled pain and constipation esophageal CA: no chemo since 05/20 poor performance status no further treatment planned back pain: MRI w marrow replacement but no apparent instability seen by neurosurgery pain: long acting pain meds added seems more comfortable this AM code: dnr encepahlopathy: toxic metabolic cxr w no infiltrate (interp by me) perhaps improved this AM constipation: tid miralax still no bm mag citrate now plan of care: hospice eval today VTE and ischemic infarcts in brain: treatment dose LMWH Subjective: case d/w dr moreno. still no bm. pain well controlled Objective: Vital Signs Temp Pulse Resp BP Pulse Ox 37.3 C 98 18 112/62 91 L 07/17/18 07:04 07/17/18 07:04 07/17/18 07:04 07/17/18 07:04 07/17/18 07:04 Laboratory Results 07/16/18 06:48 07/16/18 06:48 07/16/18 07/17/18 07/18/18 05:59 05:59 05:59 Intake Total 125 1300 57.7 Output Total 25 300 Balance 125 1275 -242.3 PT 14.1 SEC (12.0-15.0) 07/15/18 09:00 INR 1.14 (0.83-1.16) 07/15/18 09:00 - Physical Exam Constitutional: no apparent distress, appears nourished Eyes: PERRL, anicteric sclera Ears, Nose, Mouth, Throat: moist mucous membranes, hearing normal Cardiovascular: regular rate and rhythym, no murmur, rub, or gallop Respiratory: no respiratory distress, no rales or rhonchi Gastrointestinal: normoactive bowel sounds, soft, non-tender abdomen Genitourinary: no bladder fullness, No segundo in urethra Skin: warm, normal color Musculoskeletal: full muscle strength, no muscle tenderness Neurologic: AAOx3 Psychiatric: interacting appropriately ICD10 Worksheet Patient Problems: Problems Problem Status Onset Abdominal pain Acute Confusion Acute Esophageal cancer Acute Altered mental status Acute Dysarthria Acute Esophageal cancer, stage IV Acute Pulmonary embolism Acute
[2018-07-17 12:03] VITALS: BP 115/69
[2018-07-17] MEDS: ONDANSETRON 4 MG/2 ML VIAL IVP PRN (13:09)
--- NOTE | 2018-07-17 14:21 | PDIAF ---
- Diagnosis Diagnosis: esophageal CA Code Status: Do Not Resuscitate - Medication Management Discharge Medications: electronically signed and located in the Home Medication List. - Orders Services needed: Registered Nurse, Certified Special Education Inclusion Teacher, Master Meat Team Lead - Follow Up Care Current Providers and Referrals: Richy Lantigua MD [Primary Care Provider] - As per Instructions
--- NOTE | 2018-07-17 14:39 | GDS ---
[f rep st] DISCHARGE SUMMARY DISCHARGE DIAGNOSES: 1. Metastatic esophageal cancer. 2. Poor performance status. 3. Chronic pain. 4. Toxic metabolic encephalopathy. HOSPITAL COURSE: Please see admission history and physical by Dr. Cruzito Sanches. Patient presented with agitation, inattention, unusual behavior, and pain. He had a workup showing advancement of his already known metastatic disease. He had not received chemotherapy since May. Patient was non decisional at this point given confusion. His favored hospice care. He had some low back pain. An L-spine MRI revealed infiltration of his bone with tumor. He was seen by Neurosurgery; did not recommend any intervention. The patient is discharged to hospice today. He was started on long-acti ng narcotics with oxycodone 15 b.i.d. with considerable improvement in his pain. He also did not hav e evidence of somnolence from these pain medicines. /[id number]/MODL
--- NOTE | 2018-07-17 15:13 | ASMTCMCOM ---
CM Note CM Note Notes: Meeting with Pt's Funmilayo, her daughter, Argentina from [facility] and this CM. [place] provide a description of what hospice is and Funmilayo was very receptive and looked relieved once Pt was assessed and accepted. Dr Garcia updated and discharge orders done. RN updated and [facility] will arrange pickup time for 3:30p. PLAN: Pt will transfer to [facility] inpatient. Date Signed: 07/17/2018 03:13 PM Electronically Signed By:Justina Hendricks
--- NOTE | 2018-07-17 15:15 | ASMTLACE ---
BRIT Length of stay for Answers: 3 days current admission Acuity / Level of Answers: Yes Care: Did the patient have an inpatient admission? Comorbidities - select Answers: Any tumor (including all that apply lymphoma or leukemia) Cerebrovascular disease (CVA, TIA, aneurysms, vasc ular dementia) Opioid dependence / Chronic pain Other Notes: DVT/PE # of Emergency department Answers: 1-2 visits in the last 6 months Score: 15 Date Signed: 07/17/2018 03:14 PM Electronically Signed By:Justina Hendricks
[2018-07-17] MEDS ORDERED: CALCIUM CARBONATE 500 MG CHEWABLE TAB PO PRN (15:19)
--- NOTE | 2018-07-20 16:30 | ASDISCHSUM ---
Discharge Information Plan Status:Hospice-Inpatient Medically Cleared to Leave: Discharge Date:07/17/2018 03:40 PM CM D/C Disposition:Hospice Facility ADT D/C Disposition:Hospice Facility Projected Discharge Date:07/18/2018 11:00 AM Transportation at D/C: Discharge Delay Reason: Follow-Up Date:07/18/2018 11:00 AM Discharge Slot: Final Diagnosis: Placement Information Referral Type:*Hospice Referral ID:[id number] Provider [facility] Address 1:[address] [place] Address 2: City:[place] Selection Factors: State:[place] Patient Contact Information Contact Name:SHANNA Relationship: Address:[address] Work Phone: [facility]:[place] Alternate Phone: State/Zip Code:[place] [address] Email: Financial Information Financial Class:Medicare Primary Plan Desc:MEDICARE INPATIENT Primary Plan Number:[id number] Secondary Plan Desc:[employer] INDEMNITY Secondary Plan Number:[id number] Assessment Information LACE LACE Length of stay for Answers: 3 days current admission Acuity / Level of Answers: Yes Care: Did the patient have an inpatient admission? Comorbidities - select Answers: Any tumor (including all that apply lymphoma or leukemia) Cerebrovascular disease (CVA, TIA, aneurysms, vasc ular dementia) Opioid dependence / Chronic pain Other Notes: DVT/PE # of Emergency department Answers: 1-2 visits in the last 6 months Score: 15 Date Signed: 07/17/2018 03:14 PM Electronically Signed By:Justina Hendricks [facility] CM Progress Note CM Note CM Note Notes: Pt is a 77 yo M with history of metastatic esophageal cancer. Pt was last admitted from 06/09/18. Is followed by Dr. Newsome. Lives in [facility]. Discharge needs TBD. Plan: TBD Date Signed: 07/15/2018 04:15 PM Electronically Signed By:AFSHAN Lopez [facility] CM Progress Note CM Note CM Note Notes: Spoke with patient's Funmilayo about Hospice programs. She is interested in [facility] as they have the inpatient center if it is needed. A referral was sent to [facility] and they will meet with Funmilayo tomorrow at 12:30 to go over their services and answer her questions. CM will follow. Date Signed: 07/16/2018 01:55 PM Electronically Signed By:Sivan Christianson LCSW [facility] CM Progress Note CM Note CM Note Notes: Meeting with Pt's Funmilayo, her daughter, Argentina from [facility] and this CM. [place] provide a description of what hospice is and Funmilayo was very receptive and looked relieved once Pt was assessed and accepted. Dr Garcia updated and discharge orders done. RN updated and [facility] will arrange pickup time for 3:30p. PLAN: Pt will transfer to [facility] inpatient. Date Signed: 07/17/2018 03:13 PM Electronically Signed By:Justina Hendricks Intervention Information Intervention Type:*IM-Signed Date of Service:07/17/2018 02:45 PM Patient Type:Inpatient Staff Member:Doris Martinez Hours: Discipline: Severity: Comment:
--- NOTE | 2018-07-22 13:42 | GCON ---
[f rep st] CONSULTATION DATE OF CONSULTATION: 07/16/2018 REFERRING PHYSICIAN: Cruzito Sanches MD REASON FOR CONSULTATION: Spinal metastatic esophageal cancer. CHIEF COMPLAINT: Low back pain. HISTORY OF PRESENT ILLNESS: The patient is a pleasant 77-year-old gentleman who was initially diagno sed with esophageal cancer in 2010. He has been undergoing various treatments and has been doing wel l until more recently when he was diagnosed with recurrent metastatic disease. He notably has metast ases to his liver and pancreas. 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 His family now has brought him back to [facility] as he has been having increased confusion as well as complaints of low back pain in additi on to pain in his abdomen and lower chest. He denies any traumatic injury or falls. He denies any p ain radiating down his legs, any weakness or numbness in his legs. He denies any neck pain or arm sy mptoms as well. He has had CT and MRI imaging of the lumbar spine with result as below. PAST MEDICAL HISTORY: 1. Esophageal cancer as above. 2. Obstructive sleep apnea on CPAP. 3. Recent cerebral and cerebellar infarcts as above. 4. Recent DVT and PE. 5. Hiatal hernia. 6. Benign prostatic hyperplasia. PAST SURGICAL HISTORY: 1. Tonsillectomy. 2. Left retinal surgery. HOME MEDICATIONS: 1. Aspirin. 2. Oxycodone. 3. Atorvastatin. 4. Lovenox. 5. PreserVision. 6. Tamsulosin. ALLERGIES: No known drug allergies. FAMILY HISTORY: His parents of unclear causes. He has a sister who from complications fro m lupus. SOCIAL HISTORY: The patient is . 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 He is a nonsmoke r. He does drink alcohol moderately. He denies any recreational drug use. REVIEW OF SYSTEMS: GENERAL: He denies any recent weight changes. He has had a feeling of malaise a nd also irritability. HEAD, EYES, EARS, NOSE AND THROAT: He denies any recent head injuries. He rdz s poor vision in his left eye due to history of retinal detachment. He has not had any recent vision changes. He denies any hearing loss. He denies any runny nose or epistaxis. He denies sore throat . CHEST: He has muscular chest pain. He denies any chest pressure or swelling in his extremities o r palpitations. PULMONARY: He denies any shortness of breath, cough, or difficulty taking a deep br eath. GI: He has been having some nausea as well as vomiting over the past few days, and he has had constipation for the past, at least, 3 days. He denies that these are chronic symptoms. GENITOURIN NITHYA: He denies any urinary incontinence or dysuria. ENDOCRINOLOGIC: He denies any excessive thirst or urination or any temperature intolerance. HEMATOLOGIC: He denies any easy bruising or unexplain ed bleeding episodes. IMMUNOLOGIC: He denies any fevers or chills. MUSCULOSKELETAL: He has low ba ck pain as in HPI as well as some pain in his ribcage. NEUROLOGIC: He does have memory difficulties and disorientation, likely secondary to recent cerebral and cerebellar infarcts. He denies headache , seizures, weakness or numbness. PSYCHIATRIC: He denies any depression and/or anxiety. PHYSICAL EXAMINATION: GENERAL: He is a well-developed overweight gentleman who appears his recorded age. VITAL SIGNS: Most recently recorded include BP 120/67 mmHg, heart rate 78 beats per minute, r espiratory rate 17 breaths per minute, temperature 36.8 degrees Celsius. Weight 104.3 kg. HEAD, EYE S, EARS, NOSE AND THROAT: His head is atraumatic and normocephalic. His conjunctivae are clear and sclerae are nonicteric. He does have left esotropia. Ears, external pinnae are unremarkable, and he aring is grossly intact. Nose, he has no rhinorrhea or epistaxis. Throat, his mucous membranes are moist, and he has no pharyngeal erythema. CARDIOVASCULAR: He has regular rate and rhythm. He has n o peripheral edema. PULMONARY: He has normal work of breathing and symmetric chest wall excursions. GI: His abdomen is soft, nontender, and nondistended. MUSCULOSKELETAL: He has no outward signs o f trauma or deformity. NEUROLOGIC: He is awake and alert. He is oriented to himself and to being i n the hospital, but not to time. He can carry on a fluent conversational speech and follows commands without difficulty. His cranial nerves: Pupils are equal, round, and reactive to light. He has le ft esotropia, but extraocular muscle movements are intact. His face sensation and movements are full and symmetric. Hearing is grossly intact bilaterally. His palate elevates symmetrically. He has n o dysarthria. His bilateral shoulder shrug is 5/5 strength, and his tongue is midline. Strength, he has 5/5 strength in all major muscle groups including bilateral deltoids, biceps, triceps, wrist ext ensors, finger abductors, and director of academic, and in the lower extremities, bilateral hip flexors, knee extenso rs, knee flexors, dorsiflexion, extensor hallucis longus, and plantarflexion. He has no pronator dri ft. Sensation is grossly intact to light touch throughout the body. Coordination, he has no tremors in the upper extremities. Deep tendon reflexes, he has absent reflexes of bilateral biceps, triceps , patellae, and Achilles. He has no clonus and no Almanza sign. LABORATORY DATA: CBC and CMP were performed this morning. These are notable for elevated white coun t of 10.64, low hemoglobin and hematocrit of 11.0 and 32.8, respectively. His glucose is elevated at 146. Calcium is low at 8.0. Total bilirubin is high at 1.7. AST, ALT, and alkaline phosphatase ar e all elevated at 111, 101, and 275 respectively. His total protein and albumin are low at 5.6 and 2 .7 respectively. Otherwise, other values are within normal ranges. IMAGING: He has had a CT of the abdomen and pelvis performed yesterday on 07/15, and an MRI of the [facility] performed today on 07/16. I viewed both images and read radiology reports for each. Notab ly, the CT of the abdomen and pelvis, with respect to the lumbar spine demonstrates sclerotic change of the L2 through sacrum without any compromise of the vertebral body cortices. MRI with and without contrast demonstrates bone marrow replacement in the L2 through sacrum vertebral bodies. Again, there is no evidence of focal tumor or cortical compromise. There is no significant spinal canal or neuroforaminal stenosis. He also has [id number] degenerative disease at multi ple levels. ASSESSMENT: The patient is a 77-year-old gentleman with recurrent metastatic esophageal cancer and l ow back pain. He has no concerning neurological symptoms or exam findings. Imaging is consistent wi th metastatic disease of the vertebral bodies from L2 through the sacrum. Given that this appears to be a sclerotic process, and there is no compromise of the vertebral body cortices, he is likely at l ow risk of compression fracture, barring any traumatic injury in the future. Notably, at this point in time, he and the family are pursuing palliative care consultation and home hospice options due to his esophageal cancer. RECOMMENDATIONS: 1. Recommend pain management as necessary with multimodal approach. 2. Do not feel that there is any role for prophylactic bracing to prevent fractures as, again, he is at low risk from compression fracture from these sclerotic-appearing tumors. 3. If he does develop any compression fractures in the future, then bracing would certainly be consi dered, and vertebral augmentation can also be an option for treatment of pain. 4. Palliative radiation may also be an option for treatment of pain and prevention of fractures; how ever, given his prior adverse reactions to radiation, he is likely not interested in this as an optio n. Advised he should discuss further with his oncologist to see if he would be a candidate or not, i f he would like to consider that option. 5. There are no surgical indications at this time. Neurosurgery will sign off. Please call if any changes or new events. /[id number]/MODL
== END 2018-07-17 15:40 | disposition hospice, home (50) | DRG 374 ==
LOC: EDUNIT# → SUPCPDRO 08:17 → F1N 11:40
PROVIDERS: ADMIT Internal Medicine; ATTEND Internal Medicine
DX: C15.9 Malignant neoplasm of esophagus, unspecified (principal); G92 Toxic encephalopathy; C79.51 Secondary malignant neoplasm of bone; C78.7 Secondary malignant neoplasm of liver and intrahepatic bile duct; C78.89 Secondary malignant neoplasm of other digestive organs; G89.29 Other chronic pain; G47.33 Obstructive sleep apnea (adult) (pediatric); K44.9 Diaphragmatic hernia without obstruction or gangrene; Z66 Do not resuscitate; K59.00 Constipation, unspecified; Z86.711 Personal history of pulmonary embolism; Z86.718 Personal history of other venous thrombosis and embolism; Z86.73 Personal history of transient ischemic attack (TIA), and cerebral infarction without residual deficits
CPT/HCPCS: 96374; 97165-GO; A9585; J1642; J1650; J2060; J2405; J2550; J2997; Q9967